=== PATIENT | male | born 1940 | race Caucasian/White ===

== ENCOUNTER → 2019-04-18 08:52 | Oncology outpatient (ONC) | payer MEDICARE, BC, SELFPAY ==
--- NOTE | 2019-04-03 13:38 | ONC.CONS ---
History of Present Illness - Data of Consult Patient: new to practice Consult date: 04/03/19 Requesting Physician: Shahriar Haro Primary Care Provider: FRANCA Gallagher - Consult Narrative Reason for consult: Elevated serum free light chain Narrative: Andrea Padilla is a 78 year old male who was referred by Ramiro Haro MD for elevated serum free light chain. 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 Recently, at Dr. Schaefer's office, the patient was found to have an elevated serum [place] free light chain of 7.98, Lambda free light chain of 3.4. 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 Patient reported better energy level recently. He denies any pain in the bones. He denies fever or chills, no nausea and no vomiting, no chest pain and no shortness of breath. His weight is stable. CC: Lara Bradford MD Home Medications and Allergies Home Medications Medication Instructions Recorded Confirmed Type Disabled Parking Permit ea #1 07/22/17 Rx aliskiren [Tekturna] 300 mg PO QDAY #90 tab 08/05/17 Rx simvastatin 20 mg PO HS #90 tab 08/05/17 Rx spironolacton-hydrochlorothiaz 0.5 tab PO SEE INSTRUCTIONS #45 tab 08/05/17 Rx terazosin 5 mg PO QDAY #90 cap 08/05/17 Rx warfarin [Jantoven] 1 tab PO SEE INSTRUCTIONS #90 tab 08/05/17 Rx Allergies Allergy/AdvReac Type Severity Reaction Status Date / Time ciprofloxacin [From CIPRO] Allergy Severe Unverified 03/09/18 12:39 benazepril [From LOTENSIN] Allergy Intermediate Unverified 03/09/18 12:39 cephalexin [From KEFLEX] Allergy Intermediate Unverified 03/09/18 12:39 beta blockers Allergy Unknown Uncoded 03/09/18 12:39 Medical History - Medical, Surgical, Family History Medical History: Medical History (Updated 04/03/19 @ 23:59 by Lara Bradford MD) CKD stage 3 due to type 2 diabetes mellitus Diabetes Hypertension Surgical History: Surgical History (Updated 04/03/19 @ 13:52 by Lara Bradford MD) History of knee replacement Family History: Family History (Updated 10/28/16 @ 00:00 by Conversion Provider) Father Stroke - Social History Smoking Status: Former smoker Quit Date: 03/05/19 Substance Use Type: does not use Alcohol Intake: current (wind with dinner, 4 night a week) Review of Systems All systems PM: reviewed and no additional remarkable complaints except as stated Exam Vital signs: Last Vital Signs Temp 98.5 F 04/03/19 13:43 Pulse 44 L 04/03/19 13:43 Resp 16 04/03/19 13:43 BP 165/62 H 04/03/19 13:43 Pulse Ox 97 04/03/19 13:43 ECOG 1 Narrative: Gen: WDWN, NAD, pleasant and cooperative Heent: EOMI, PERLLA, anicteric Nectk :supple, no palpable LDD, no palpable thyroid gland Resp: CTAB, no wheezes Abd: soft, nontender. No palpable organomegaly Ext: no pitting edema Neuro: AOx3, non-focal Results - Labs Pending. Assessment and Plan (1) Elevated serum immunoglobulin free light chain level 78 year old with multiple chronic comorbidities including HTN, DM, CKD. He was referred here for elevated serum free light chain [place]. I discussed with him that I will proceed with some initial tests and eventually, BMA/Bx may be indicated. Plan: 1. CBC, CMP, LDH, B2M, QIg, SPEP, IFX, SFLC 2. RTC in 1 week to review the result.
[2019-04-03 13:43] VITALS: BP 165/62; PULSE 44; RESP 16; TEMP 36.9; O2SAT 97
[2019-04-18 13:59] LABS: Add Manual Diff / Slide Review NO; Basophils Absolute Auto 100 /uL (0-100); Basophils Percent Auto 0.7 % (0-2); Eosinophils Absolute Auto 200 /uL (0-450); Hematocrit 44.3 % (41-53); Hemoglobin 14.8 g/dL (13.5-17.5); Lymphocytes Absolute Auto 1400 /uL (1100-4500); Lymphocytes Percent Auto 18.6 % (25-40); Mean Corpuscular HGB Conc 33.5 % (30-36); Mean Corpuscular Hemoglobin 30.2 PG (26-34); Mean Corpuscular Volume 90.1 fL (80-100); Monocytes Absolute Auto 1100 /uL (0-900); Monocytes Percent Auto 14.6 % (3-14); Neutrophils Absolute Auto 4800 /uL (1500-7000); Neutrophils Percent Auto 64.1 % (50-75); Platelet Count 164 X10^3/uL (150-400); Red Blood Cell Count 4.91 X10^6/uL (4.5-5.9); Red Cell Distribution Width 13.3 % (11.6-14.8); White Blood Cell Count 7.5 X10^3/uL (4.5-11.0)
[2019-04-18 14:27] LABS: Alanine Aminotransferase 17 IU/L (21-72); Albumin 3.9 g/dL (3.5-5.0); Albumin Globulin Ratio 1.3 (1.0-2.8); Alkaline Phosphatase 88 U/L (38-126); Aspartate Aminotransferase 21 IU/L (17-59); Bilirubin Total 0.7 mg/dL (0.2-1.3); Blood Urea Nitrogen 22 mg/dL (9-20); Calcium 9.6 mg/dL (8.4-10.2); Carbon Dioxide 32 mmol/L (22-32); Chloride 103 mmol/L (98-107); Estimated Glomerular Filt Rate > 60.0 mL/min (>60); Glucose 130 mg/dL (80-110); HEMOLYSIS < 15 (0-50); Potassium 4.8 mmol/L (3.4-5.1); Sodium 142 mmol/L (137-145); Total Protein 6.9 g/dL (6.3-8.2)
[2019-04-18 15:12] LABS: Lactate Dehydrogenase 457 U/L (313-618)
[2019-04-20 12:30] LABS: Beta-2-Microglobulin 3.44 mg/L (< 2.52)
[2019-04-20 14:34] LABS: Immunoglobulin A 438 mg/dL (81-463); Immunoglobulin G, Quantitative 1043 mg/dL (694-1618)
[2019-04-20 22:44] LABS: Albumin 3.6 g/dL (3.8-4.8); Alpha 1 Globulin 0.3 g/dL (0.2-0.3); Alpha 2 Globulin 0.6 g/dL (0.5-0.9); Beta 1 Globulin 0.5 g/dL (0.4-0.6); Gamma Globulin 1.1 g/dL (0.8-1.7); Protein, Total 6.6 g/dL (6.1-8.1)
[2019-04-21 14:35] LABS: Immunoglobulin M, Quantitative 130 mg/dL (48-271)
[2019-04-21 16:10] LABS: Free Kappa Light Chain 76.8 mg/L (3.3-19.4); Free Kappa/ Lambda Ratio 2.43 (0.26-1.65); Free Lambda 31.7 mg/L (5.7-26.3)
== END ==
PROVIDERS: PCP Nurse Practitioner Family; Visit Provider Internal Medicine Hematology & Oncology
DX: R79.89 Other specified abnormal findings of blood chemistry (principal); E11.22 Type 2 diabetes mellitus with diabetic chronic kidney disease; E11.21 Type 2 diabetes mellitus with diabetic nephropathy; I12.9 Hypertensive chronic kidney disease with stage 1 through stage 4 chronic kidney disease, or unspecified chronic kidney disease; N18.2 Chronic kidney disease, stage 2 (mild); Z79.01 Long term (current) use of anticoagulants
CPT/HCPCS: 36415; 80053; 82232; 82784; 83615; 83883; 84155; 84165; 85025; 86334; 99204; 99214

== ENCOUNTER 2019-06-13 09:15 | Day surgery (SDC) | payer MEDICARE, BC, SELFPAY ==
[2019-06-13] MEDS: PROPARACAINE 0.5% OPHTH SOL 2 DROPS EYE-OP (10:15)
[2019-06-13 10:20] VITALS: BP 120/60; PULSE 47; RESP 20; TEMP 36.5; O2SAT 93; BMI 26.8
[2019-06-13] MEDS: CATARACT EYE COMPOUND (10 DROPS/SYRINGE) 3 DROPS EYE-OP (10:20)
--- NOTE | 2019-06-13 11:35 | PM.PREOP ---
Pre-operative Note Interval Note History & Physical reviewed/Exam performed by Physician: No Changes to H&P: No
--- NOTE | 2019-06-13 11:35 | PM.OP.1 ---
Operative Date/Time/Diagnoses Pre-op diagnosis: Nuclear Cataract Left eye Post-op diagnosis: same Procedure & Clinicians Surgeon: Michelet Calvo Anesthesia Type: MAC +/- and Sedation Operative Notes Procedure in detail: Patient brought to the operating suite. Tetracaine drops placed in the left eye. Marking instrument was used to julio the vertical and horizontal meridians. Patient was prepped and draped in sterile manner. Wire lid speculum was placed in the eye. Marking instrument was used to julio the 130 degree meridian. Betadine drops were placed on the eye. This was irrigated. Lidocaine jelly was placed on the eye. A paracentesis port was created with a side-port blade. 0.1 mL 1% preservative free lidocaine was injected into the anterior chamber. The anterior chamber was deepened with viscoelastic. 2.6 mm keratome was used to create a temporal clear corneal incision. Cystotome and Utrata forceps were used to create continuous tear capsulorrhexis. Balanced salt solution was used to hydro dissect the nucleus. The phacoemulsification handpiece was inserted and the nucleus was removed using the stop and chop technique. The irrigation aspiration handpiece was inserted and the remaining cortex was removed. Anterior chamber was deepened with viscoelastic. An Croft [id number] intraocular lens with a power of 21.0 was injected into the capsular bag. Irrigation aspiration handpiece was inserted and the remaining viscoelastic was removed. The lens was rotated to the 130 degree meridian. Incision was hydrated with balanced salt solution and found to be leak free with pressure with Weck-Josefina sponges. 0.1 mL Vigamox injected anterior chamber. 0.3 mL Kenalog 10 mg was injected subconjunctivally. Lid speculum was removed. The patient left the operating room in excellent condition. Complications: none Condition: stable Disposition: same day surgery
[2019-06-13] MEDS: PHENYLEPHRINE/LIDOCAINE VIAL (OR) 0.2 ML EYE-OP (11:56)
[2019-06-13] MEDS: MOXIFLOXACIN OPHTH DROPS 3 ML BOTTLE 2 DROPS INJ (11:58)
[2019-06-13] MEDS: CHONDROIDTIN/SOD HYALURONATE 1.05 ML SYRINGE INTRAOCULA (12:00)
[2019-06-13] MEDS: LIDOCAINE JELLY 2% 5 ML 1 APPLIC TOP (12:00)
[2019-06-13] MEDS: TRIAMCINOLONE 50 MG/5 ML VIAL INJ (12:00)
[2019-06-13] MEDS: BALANCED SALT IRRIG SOLN NO.2 500 ML, EPINEPHrine 1 MG IRR (12:01)
[2019-06-13] MEDS: TETRACAINE 0.5% OPHTH DROPS 4 ML 2 DROPS EYE-OP (12:01)
[2019-06-13 12:27] VITALS: BP 131/66; PULSE 46; RESP 15; TEMP 36.3; O2SAT 96
== END 2019-06-13 12:35 | disposition admitted as inpatient to this hospital (09) ==
PROVIDERS: PCP Nurse Practitioner Family; Visit Provider Ophthalmology
PROC: (CPT 66984; principal; 2019-06-13 11:15)
DX: H25.12 Age-related nuclear cataract, left eye (principal); I10 Essential (primary) hypertension; Z79.84 Long term (current) use of oral hypoglycemic drugs
CPT/HCPCS: 66984; J0171; J2250; J3010; J3301; V2787

== ENCOUNTER 2019-06-27 11:28 | Day surgery (SDC) | payer MEDICARE, BC, SELFPAY ==
[2019-06-27 12:51] VITALS: BMI 26.0
[2019-06-27 12:57] VITALS: BP 142/60; PULSE 44; RESP 151; TEMP 36.1; O2SAT 97
[2019-06-27] MEDS: PROPARACAINE 0.5% OPHTH SOL 2 DROPS EYE-OP (13:18)
[2019-06-27] MEDS: CATARACT EYE COMPOUND (10 DROPS/SYRINGE) 3 DROPS EYE-OP (13:18)
--- NOTE | 2019-06-27 13:38 | PM.PREOP ---
Pre-operative Note Interval Note History & Physical reviewed/Exam performed by Physician: No Changes to H&P: No
--- NOTE | 2019-06-27 13:38 | PM.OP.1 ---
Operative Date/Time/Diagnoses Pre-op diagnosis: Nuclear cataract right eye Procedure & Clinicians Procedure: Cataract Surgery Same procedure as scheduled: Yes Surgeon: Michelet Calvo Anesthesia Type: MAC +/- and Sedation Operative Notes Procedure in detail: Patient brought to the operating suite. Tetracaine drops placed in the right eye. Patient was prepped and draped in sterile manner. Wire lid speculum was placed in the eye. Betadine drops were placed on the eye. This was irrigated. Lidocaine jelly was placed on the eye. A paracentesis port was created with a side-port blade. 0.1 mL 1% preservative free lidocaine was injected into the anterior chamber. The anterior chamber was deepened with viscoelastic. 2.6 mm keratome was used to create a temporal clear corneal incision. Cystotome and Utrata forceps were used to create continuous tear capsulorrhexis. Balanced salt solution was used to hydro dissect the nucleus. The phacoemulsification handpiece was inserted and the nucleus was removed using the stop and chop technique. The irrigation aspiration handpiece was inserted and the remaining cortex was removed. Anterior chamber was deepened with viscoelastic. An Croft ZCB00 intraocular lens with a power of 21.5 was injected into the capsular bag. Irrigation aspiration handpiece was inserted and the remaining viscoelastic was removed. Incision was hydrated with balanced salt solution and found to be leak free with pressure with Weck-Josefina sponges. 0.1 mL Vigamox injected anterior chamber. 0.3 mL Kenalog 10 mg was injected subconjunctivally. Lid speculum was removed. The patient left the operating room in excellent condition. Complications: none Condition: stable Disposition: same day surgery
[2019-06-27] MEDS: CHONDROIDTIN/SOD HYALURONATE 1.05 ML SYRINGE INTRAOCULA (14:02)
[2019-06-27] MEDS: MOXIFLOXACIN OPHTH DROPS 3 ML BOTTLE 2 DROPS INJ (14:02)
[2019-06-27] MEDS: TRIAMCINOLONE 50 MG/5 ML VIAL INJ (14:02)
[2019-06-27] MEDS: PHENYLEPHRINE/LIDOCAINE VIAL (OR) 0.2 ML EYE-OP (14:02)
[2019-06-27] MEDS: TETRACAINE 0.5% OPHTH DROPS 4 ML 2 DROPS EYE-OP (14:03)
[2019-06-27] MEDS: LIDOCAINE JELLY 2% 5 ML 1 APPLIC TOP (14:03)
[2019-06-27] MEDS: BALANCED SALT IRRIG SOLN NO.2 500 ML, EPINEPHrine 1 MG IRR (14:03)
[2019-06-27 14:10] VITALS: BP 112/61; PULSE 59; RESP 14; TEMP 36.6; O2SAT 94
== END 2019-06-27 14:30 | disposition home or self-care (01) ==
PROVIDERS: PCP Nurse Practitioner Family; Visit Provider Ophthalmology
PROC: (CPT 66984; principal; 2019-06-27 13:45)
DX: H25.11 Age-related nuclear cataract, right eye (principal); I10 Essential (primary) hypertension; E11.9 Type 2 diabetes mellitus without complications; Z79.84 Long term (current) use of oral hypoglycemic drugs
CPT/HCPCS: 66984; J0171; J2250; J3010; J3301

== ENCOUNTER 2020-07-15 03:57 | Emergency (ER) | payer MEDICARE, BC, SELFPAY ==
[2020-07-15] VITALS (14 sets, daily range): BP systolic 102–172; BP diastolic 56–77; PULSE 79–91; RESP 13–23; TEMP 36.8; O2SAT 93–98; BMI 26.0
--- NOTE | 2020-07-15 04:00 | DI.RAD.S_ITS ---
PROCEDURE: XR CHEST 1V INDICATIONS: chest pain TECHNIQUE: One view of the chest was acquired. COMPARISON: None. FINDINGS: Surgical changes and devices: None. Lungs and pleura: Mild increased vascularity is present. There is blunting of the costophrenic angles bilaterally. Mediastinum: Mediastinal contours appear normal. Heart size is normal. Bones and chest wall: No suspicious bony lesions. Overlying soft tissues appear unremarkable. IMPRESSION: Increased vascularity consistent with edema. Trace effusions are noted. Dictated by: Edelmira Lopez M.D. on 07/15/2020 at 8:55 Approved by: Edelmira Lopez M.D. on 07/15/2020 at 8:56
[2020-07-15 04:12] LABS: Add Manual Diff / Slide Review NO; Basophils Absolute Auto 200 /uL (0-100); Basophils Percent Auto 1.1 % (0-2); Eosinophils Absolute Auto 200 /uL (0-450); Eosinophils Percent Auto 1.7 % (2-4); Hematocrit 31.9 % (41-53); Hemoglobin 10.5 g/dL (13.5-17.5); Lymphocytes Absolute Auto 1300 /uL (1100-4500); Lymphocytes Percent Auto 9.3 % (25-40); Mean Corpuscular Volume 94.1 fL (80-100); Monocytes Absolute Auto 1600 /uL (0-900); Monocytes Percent Auto 11.5 % (3-14); Neutrophils Absolute Auto 10600 /uL (1500-7000); Neutrophils Percent Auto 76.4 % (50-75); Platelet Count 448 X10^3/uL (150-400); Red Blood Cell Count 3.39 X10^6/uL (4.5-5.9); Red Cell Distribution Width 14.6 % (11.6-14.8); White Blood Cell Count 13.8 X10^3/uL (4.5-11.0)
[2020-07-15 04:15] LABS: INR 1.5 (0.9-1.3)
[2020-07-15 04:18] LABS: PTT Partial Thromboplastin Tim 29 SECONDS (26.4-36.2)
[2020-07-15 04:20] LABS: Alanine Aminotransferase 27 IU/L (<50); Albumin 3.1 g/dL (3.5-5.0); Albumin Globulin Ratio 0.8 (1.0-2.8); Alkaline Phosphatase 206 U/L (38-126); Aspartate Aminotransferase 36 IU/L (17-59); BUN Creatinine Ratio 40.2 (6-22); Bilirubin Total 1.6 mg/dL (0.2-1.3); Blood Urea Nitrogen 33 mg/dL (9-20); Calcium 9.1 mg/dL (8.4-10.2); Carbon Dioxide 30 mmol/L (22-32); Chloride 108 mmol/L (98-107); Creatine Kinase 44 U/L (55-170); Estimated Glomerular Filt Rate > 60.0 mL/min (>60); Globulin 3.8 g/dL (1.7-4.1); Glucose 201 mg/dL (80-110); HEMOLYSIS 27 (0-50); Lipase 400 U/L (23-300); Potassium 4.1 mmol/L (3.4-5.1); Sodium 140 mmol/L (137-145); Total Protein 6.9 g/dL (6.3-8.2)
--- NOTE | 2020-07-15 04:21 | ED.CHESTPAIN ---
HPI - Chest Pain <Joss Camacho, DO - Last Filed: 07/15/20 19:00> General Chief Complaint: Chest Pain Stated Complaint: chest pain Time Seen by Provider: 07/15/20 03:59 Source: patient and EMS Mode of arrival: EMS Limitations: no limitations History of Present Illness HPI narrative: 80-year-old male brought in by EMS for evaluation of left-sided chest discomfort. Also complaining sweating and tingling down half of his left arm. Patient states that the symptoms occurred approximately 0200 hours in the morning. He states that it woke him from his sleep. EMS was called by the rehab facility staff. He is at the rehab facility secondary to pelvic fractures. He has been there for 2 weeks. It was reported from the patient in EMS that he was complaining of the same pain that brought him in this evening for the past 2 nights with tonaudrey's episode being the 3rd night that this has happened. It seems to be associated shortly after receiving tramadol. Patient received aspirin and nitro by EMS prior to arrival without any change in his discomfort. Upon my evaluation patient states that his symptoms are somewhat better compared earlier in the evening. He states that the pain can be reproduced with touching and moving his left arm and also taking a deep breath. Related Data Home Medications Medication Instructions Recorded Confirmed carvedilol 12.5 mg PO BID 06/13/19 06/27/19 glipizide 15 mg PO DAILY 06/13/19 06/27/19 Previous Rx's Medication Instructions Recorded Disabled Parking Permit ea #1 07/22/17 aliskiren [Tekturna] 300 mg PO QDAY #90 tab 08/05/17 simvastatin 20 mg PO HS #90 tab 08/05/17 spironolacton-hydrochlorothiaz 0.5 tab PO SEE INSTRUCTIONS #45 tab 08/05/17 terazosin 5 mg PO QDAY #90 cap 08/05/17 warfarin [Jantoven] 1 tab PO SEE INSTRUCTIONS #90 tab 08/05/17 Allergies Allergy/AdvReac Type Severity Reaction Status Date / Time ciprofloxacin [From CIPRO] Allergy Severe Anaphylaxis Verified 06/27/19 12:45 benazepril [From LOTENSIN] Allergy Intermediate Anaphylaxis Verified 06/27/19 12:45 cephalexin [From KEFLEX] Allergy Intermediate Anaphylaxis Verified 06/27/19 12:45 Calcium Channel Blocking AdvReac Severe Anaphylaxis Verified 06/27/19 12:45 Agent Dilt Opioids - Morphine Analogues AdvReac Severe Hallucinati Verified 07/15/20 05:04 ng ALCIDES Inhibitors AdvReac Anaphylaxis Verified 06/27/19 12:45 atenolol AdvReac Anaphylaxis Verified 06/27/19 12:45 Review of Systems <Joss Camacho DO - Last Filed: 07/15/20 19:00> Constitutional Constitutional: Denies chills and Denies fever(s) Comments: Sweating Cardiovascular Cardiovascular: Reports chest pain, Denies syncope, Denies rapid heart rate, Denies irregular heart rhythm, Reports radiating jaw, neck or arm pain and Denies dyspnea Respiratory Respiratory: Denies cough, Reports pain on inspiration and Denies dyspnea Gastrointestinal Gastrointestinal: Denies abdominal pain, Denies nausea and Denies vomiting Genitourinary Genitourinary: Denies dysuria Genitourinary: Denies dysuria Integumentary/Breasts Skin/Breast: Denies rash Neurologic Neurologic: Denies behavioral changes and Denies syncope Psychiatric Psychiatric: Denies behavioral changes Hematologic/Lymphatic Comments: On Coumadin per his medicine list Allergic/Immunologic Allergic/Immunologic: Denies urticaria Patient History <Joss Camacho DO - Last Filed: 07/15/20 19:00> Medical History CKD stage 3 due to type 2 diabetes mellitus (Acute) Diabetes (Acute) Hypertension (Acute) Surgical History (Updated 04/04/19 @ 00:08 by Lara Bradford MD) History of knee replacement Family History (Updated 10/28/16 @ 00:00 by Conversion Provider) Father Stroke Social History household members: spouse Smoking Status: Former smoker alcohol intake: current (wind with dinner, 4 night a week) substance use type: does not use Smoking Status: Former smoker alcohol intake frequency: 0-2 drinks per day Substance Use Type: does not use Exam <Joss Camacho DO - Last Filed: 07/15/20 19:00> Initial Vital Signs Initial Vital Signs: Vital Signs Temperature 98.3 F 07/15/20 04:00 Pulse Rate 86 07/15/20 04:00 Respiratory Rate 20 07/15/20 04:00 Blood Pressure 105/56 L 07/15/20 04:00 Pulse Oximetry 98 07/15/20 04:00 Const General: cooperative and comfortable Limitations: mental status not altered HENMT Head: normal to inspection and normocephalic Chest Chest: tenderness (Left-sided) and No rash Resp Effort & Inspection: normal respiratory effort Auscultation: clear to auscultation bilaterally Cardio Rate: regular rate Rhythm: regular rhythm GI Inspection: non-distended Palpation: soft Skin Lesions: no lesions Rashes: no rashes Neuro General: patient alert and patient awake Cognition: normal cognition Speech: speech normal Extrem General: normal to inspection and capillary refill normal Psych Appearance: grossly normal and well kempt <Halima Grant DO - Last Filed: 07/15/20 11:20> Initial Vital Signs Initial Vital Signs: Vital Signs Temperature 98.3 F 07/15/20 04:00 Pulse Rate 86 07/15/20 04:00 Respiratory Rate 20 07/15/20 04:00 Blood Pressure 105/56 L 07/15/20 04:00 Pulse Oximetry 98 07/15/20 04:00 Scores <Joss Camacho DO - Last Filed: 07/15/20 19:00> GCS Muriel coma scale eye opening: Spontaneous Muriel coma scale verbal response: Confused [place] coma scale motor response: Obey commands [place] coma scale total score: 14 Course <Joss Camacho DO - Last Filed: 07/15/20 19:00> Orders Ordered: Discontinued Medications Ketorolac Tromethamine (Toradol) 30 mg IV NOW ONE Stop: 07/15/20 06:00 Last Admin: 07/15/20 06:04 Dose: 30 mg Documented by: FREDY Vital Signs Vital signs: Vital Signs - 8 hr 07/15/20 04:00 07/15/20 04:01 07/15/20 04:02 Temperature 98.3 F Pulse Rate 86 87 Respiratory Rate 20 Blood Pressure 105/56 L 105/56 L Pulse Oximetry 98 93 07/15/20 04:30 07/15/20 05:00 07/15/20 05:30 Temperature Pulse Rate 80 79 80 Respiratory Rate 13 17 17 Blood Pressure 102/57 L 142/65 H 146/66 H Pulse Oximetry 94 96 95 07/15/20 06:00 07/15/20 06:30 07/15/20 07:00 Temperature Pulse Rate 87 83 85 Respiratory Rate 23 19 18 Blood Pressure 165/75 H 151/71 H 143/67 H Pulse Oximetry 96 95 96 07/15/20 07:30 07/15/20 08:00 07/15/20 08:30 Temperature Pulse Rate 91 H 91 H 83 Respiratory Rate 21 23 Blood Pressure 158/77 H 148/73 H 172/74 H Pulse Oximetry 95 95 95 07/15/20 09:00 07/15/20 09:01 Temperature Pulse Rate 85 87 Respiratory Rate Blood Pressure 163/68 H Pulse Oximetry <Halima Grant DO - Last Filed: 07/15/20 11:20> Orders Ordered: Discontinued Medications Ketorolac Tromethamine (Toradol) 30 mg IV NOW ONE Stop: 07/15/20 06:00 Last Admin: 07/15/20 06:04 Dose: 30 mg Documented by: FREDY Vital Signs Vital signs: Vital Signs - 8 hr 07/15/20 04:00 07/15/20 04:01 07/15/20 04:02 Temperature 98.3 F Pulse Rate 86 87 Respiratory Rate 20 Blood Pressure 105/56 L 105/56 L Pulse Oximetry 98 93 07/15/20 04:30 07/15/20 05:00 07/15/20 05:30 Temperature Pulse Rate 80 79 80 Respiratory Rate 13 17 17 Blood Pressure 102/57 L 142/65 H 146/66 H Pulse Oximetry 94 96 95 07/15/20 06:00 07/15/20 06:30 07/15/20 07:00 Temperature Pulse Rate 87 83 85 Respiratory Rate 23 19 18 Blood Pressure 165/75 H 151/71 H 143/67 H Pulse Oximetry 96 95 96 07/15/20 07:30 07/15/20 08:00 07/15/20 08:30 Temperature Pulse Rate 91 H 91 H 83 Respiratory Rate 21 23 Blood Pressure 158/77 H 148/73 H 172/74 H Pulse Oximetry 95 95 95 07/15/20 09:00 07/15/20 09:01 Temperature Pulse Rate 85 87 Respiratory Rate Blood Pressure 163/68 H Pulse Oximetry MDM - Chest Pain <Joss Camacho DO - Last Filed: 07/15/20 19:00> Lab Data Attestation: I reviewed the patient's lab results. Result diagrams: 07/15/20 04:00 07/15/20 04:00 Labs: Lab Results 07/15/20 07/15/20 07/15/20 Range/Units 04:00 04:00 04:00 WBC 13.8 H (4.5-11.0) X10^3/uL RBC 3.39 L (4.5-5.9) X10^6/uL Hgb 10.5 L (13.5-17.5) g/dL Hct 31.9 L (41-53) % MCV 94.1 (80-100) fL MCH 31.0 (26-34) PG MCHC 33.0 (30-36) % RDW 14.6 (11.6-14.8) % Plt Count 448 H (150-400) X10^3/uL Neut % (Auto) 76.4 H (50-75) % Lymph % (Auto) 9.3 L (25-40) % [place] % (Auto) 11.5 (3-14) % Eos % (Auto) 1.7 L (2-4) % Baso % (Auto) 1.1 (0-2) % Neut # (Auto) 30222 H (2531-8629) /uL Lymph # (Auto) 1300 (0325-9937) /uL [place] # (Auto) 1600 H (0-900) /uL Eos # (Auto) 200 (0-450) /uL Baso # (Auto) 200 H (0-100) /uL PT 17.0 H (10.1-12.7) SECONDS INR 1.5 H (0.9-1.3) APTT 29 (26.4-36.2) SECONDS Sodium 140 (137-145) mmol/L Potassium 4.1 (3.4-5.1) mmol/L Chloride 108 H (98-107) mmol/L Carbon Dioxide 30 (22-32) mmol/L BUN 33 H (9-20) mg/dL Creatinine 0.82 (0.66-1.25) mg/dL Estimated GFR > 60.0 (>60) mL/min BUN/Creatinine Ratio 40.2 H (6-22) Glucose 201 H (80-110) mg/dL Calcium 9.1 (8.4-10.2) mg/dL Total Bilirubin 1.6 H (0.2-1.3) mg/dL AST 36 (17-59) IU/L ALT 27 (<50) IU/L Alkaline Phosphatase 206 H (38-126) U/L Total Creatine Kinase 44 L (55-170) U/L CK-MB (CK-2) TNP CK-MB (CK-2) Rel Index TNP Troponin I 0.013 (0.01-0.034) ng/mL Total Protein 6.9 (6.3-8.2) g/dL Albumin 3.1 L (3.5-5.0) g/dL Globulin 3.8 (1.7-4.1) g/dL Albumin/Globulin Ratio 0.8 L (1.0-2.8) Lipase 400 H (23-300) U/L 07/15/20 Range/Units 06:55 WBC (4.5-11.0) X10^3/uL RBC (4.5-5.9) X10^6/uL Hgb (13.5-17.5) g/dL Hct (41-53) % MCV (80-100) fL MCH (26-34) PG MCHC (30-36) % RDW (11.6-14.8) % Plt Count (150-400) X10^3/uL Neut % (Auto) (50-75) % Lymph % (Auto) (25-40) % [place] % (Auto) (3-14) % Eos % (Auto) (2-4) % Baso % (Auto) (0-2) % Neut # (Auto) (6665-8085) /uL Lymph # (Auto) (5362-5611) /uL [place] # (Auto) (0-900) /uL Eos # (Auto) (0-450) /uL Baso # (Auto) (0-100) /uL PT (10.1-12.7) SECONDS INR (0.9-1.3) APTT (26.4-36.2) SECONDS Sodium (137-145) mmol/L Potassium (3.4-5.1) mmol/L Chloride (98-107) mmol/L Carbon Dioxide (22-32) mmol/L BUN (9-20) mg/dL Creatinine (0.66-1.25) mg/dL Estimated GFR (>60) mL/min BUN/Creatinine Ratio (6-22) Glucose (80-110) mg/dL Calcium (8.4-10.2) mg/dL Total Bilirubin (0.2-1.3) mg/dL AST (17-59) IU/L ALT (<50) IU/L Alkaline Phosphatase (38-126) U/L Total Creatine Kinase (55-170) U/L CK-MB (CK-2) CK-MB (CK-2) Rel Index Troponin I < 0.012 (0.01-0.034) ng/mL Total Protein (6.3-8.2) g/dL Albumin (3.5-5.0) g/dL Globulin (1.7-4.1) g/dL Albumin/Globulin Ratio (1.0-2.8) Lipase (23-300) U/L Imaging Data Chest x-ray: Attestation: I personally reviewed and interpreted this imaging study as follows: My Impression: Poor inspiratory volumes, bilateral patchy infiltrates, no pneumonia ECG Data Attestation: I personally reviewed and interpreted this ECG as follows: Prior ECG tracings: not available for review Interpretation: Sinus rhythm Ventricular rate 88 Normal axis Normal QRS Normal QTC No ST T wave changes MDM Narrative Medical decision making narrative: Patient does have left-sided reproducible chest pain. He states that this was the pain that brought him into the ER. He was given aspirin and nitro. Unremarkable EKG. First troponin negative. Given the fact that he did have pain down his left arm that he is a diabetic will keep the patient for repeat troponin. Care turned over to Dr. Grant at change of shift to follow up and disposition. <Halima Grant, DO - Last Filed: 07/15/20 11:20> Lab Data Attestation: I reviewed the patient's lab results. Labs: Lab Results 07/15/20 07/15/20 07/15/20 Range/Units 04:00 04:00 04:00 WBC 13.8 H (4.5-11.0) X10^3/uL RBC 3.39 L (4.5-5.9) X10^6/uL Hgb 10.5 L (13.5-17.5) g/dL Hct 31.9 L (41-53) % MCV 94.1 (80-100) fL MCH 31.0 (26-34) PG MCHC 33.0 (30-36) % RDW 14.6 (11.6-14.8) % Plt Count 448 H (150-400) X10^3/uL Neut % (Auto) 76.4 H (50-75) % Lymph % (Auto) 9.3 L (25-40) % [place] % (Auto) 11.5 (3-14) % Eos % (Auto) 1.7 L (2-4) % Baso % (Auto) 1.1 (0-2) % Neut # (Auto) 08445 H (6932-9961) /uL Lymph # (Auto) 1300 (3834-9889) /uL [place] # (Auto) 1600 H (0-900) /uL Eos # (Auto) 200 (0-450) /uL Baso # (Auto) 200 H (0-100) /uL PT 17.0 H (10.1-12.7) SECONDS INR 1.5 H (0.9-1.3) APTT 29 (26.4-36.2) SECONDS Sodium 140 (137-145) mmol/L Potassium 4.1 (3.4-5.1) mmol/L Chloride 108 H (98-107) mmol/L Carbon Dioxide 30 (22-32) mmol/L BUN 33 H (9-20) mg/dL Creatinine 0.82 (0.66-1.25) mg/dL Estimated GFR > 60.0 (>60) mL/min BUN/Creatinine Ratio 40.2 H (6-22) Glucose 201 H (80-110) mg/dL Calcium 9.1 (8.4-10.2) mg/dL Total Bilirubin 1.6 H (0.2-1.3) mg/dL AST 36 (17-59) IU/L ALT 27 (<50) IU/L Alkaline Phosphatase 206 H (38-126) U/L Total Creatine Kinase 44 L (55-170) U/L CK-MB (CK-2) TNP CK-MB (CK-2) Rel Index TNP Troponin I 0.013 (0.01-0.034) ng/mL Total Protein 6.9 (6.3-8.2) g/dL Albumin 3.1 L (3.5-5.0) g/dL Globulin 3.8 (1.7-4.1) g/dL Albumin/Globulin Ratio 0.8 L (1.0-2.8) Lipase 400 H (23-300) U/L 07/15/20 Range/Units 06:55 WBC (4.5-11.0) X10^3/uL RBC (4.5-5.9) X10^6/uL Hgb (13.5-17.5) g/dL Hct (41-53) % MCV (80-100) fL MCH (26-34) PG MCHC (30-36) % RDW (11.6-14.8) % Plt Count (150-400) X10^3/uL Neut % (Auto) (50-75) % Lymph % (Auto) (25-40) % [place] % (Auto) (3-14) % Eos % (Auto) (2-4) % Baso % (Auto) (0-2) % Neut # (Auto) (4769-5385) /uL Lymph # (Auto) (1935-1295) /uL [place] # (Auto) (0-900) /uL Eos # (Auto) (0-450) /uL Baso # (Auto) (0-100) /uL PT (10.1-12.7) SECONDS INR (0.9-1.3) APTT (26.4-36.2) SECONDS Sodium (137-145) mmol/L Potassium (3.4-5.1) mmol/L Chloride (98-107) mmol/L Carbon Dioxide (22-32) mmol/L BUN (9-20) mg/dL Creatinine (0.66-1.25) mg/dL Estimated GFR (>60) mL/min BUN/Creatinine Ratio (6-22) Glucose (80-110) mg/dL Calcium (8.4-10.2) mg/dL Total Bilirubin (0.2-1.3) mg/dL AST (17-59) IU/L ALT (<50) IU/L Alkaline Phosphatase (38-126) U/L Total Creatine Kinase (55-170) U/L CK-MB (CK-2) CK-MB (CK-2) Rel Index Troponin I < 0.012 (0.01-0.034) ng/mL Total Protein (6.3-8.2) g/dL Albumin (3.5-5.0) g/dL Globulin (1.7-4.1) g/dL Albumin/Globulin Ratio (1.0-2.8) Lipase (23-300) U/L MDM Narrative Medical decision making narrative: Patient signed out to me by Dr. Camacho. I have seen evaluated patient myself he is currently on the phone with his . His pain is reproducible when I palpate on his chest he overall is feeling better. At times he has had quite the story after a fall. He is noted to have contusion all along the right side of his torso as well. The pain seems to be musculoskeletal related rather than cardiac related his repeat troponin is negative. At this time I feel it is okay for him to go home, however did caution him to return to the ED if his chest pain worsens or changes in nature. Discharge Plan Departure Patient Disposition: Home Clinical Impression: Atypical chest pain Discharge Date/Time: 07/15/20 10:06 Instructions: DI for Atypical Chest Pain Activity Restrictions/Additional Instructions: *You have been diagnosed with atypical chest pain *What to do: Rib pain at this time seems to be musculoskeletal related. However he still may require further cardiac testing with her primary care provider *Continue to take medications as directed *Follow up with your primary care provider in 2-3 days *Return to ER if you should have changing chest pain, new or worsening chest pain, shortness of breath, nausea or vomiting or any new, worsening or concerning symptoms Prescriptions: No Action Disabled Parking Permit Qty: 1 RF: 0 terazosin 5 MG capsule 5 mg PO QDAY Qty: 90 RF: 3 spironolacton-hydrochlorothiaz 25 MG/25 MG tablet 0.5 tab PO SEE INSTRUCTIONS Qty: 45 RF: 3 simvastatin 20 MG tablet 20 mg PO HS Qty: 90 RF: 3 warfarin [Jantoven] 5 MG tablet 1 tab PO SEE INSTRUCTIONS Qty: 90 RF: 3 aliskiren [Tekturna] 300 MG tablet 300 mg PO QDAY Qty: 90 RF: 3 carvedilol 12.5 mg Tablet 12.5 mg PO BID RF: 0 glipizide 5 mg Tablet 15 mg PO DAILY RF: 0
[2020-07-15 04:32] LABS: Troponin I 0.013 ng/mL (0.01-0.034)
[2020-07-15] MEDS: KETOROLAC 60 MG/2 ML VIAL 30 MG IV (06:04)
[2020-07-15 07:36] LABS: Troponin I < 0.012 ng/mL (0.01-0.034)
== END 2020-07-15 10:06 | disposition home or self-care (01) ==
PROVIDERS: Emergency Medicine; Emergency Provider Emergency Medicine
DX: R07.89 Other chest pain (principal); R20.2 Paresthesia of skin; I10 Essential (primary) hypertension; E11.9 Type 2 diabetes mellitus without complications; I48.91 Unspecified atrial fibrillation
CPT/HCPCS: 36415; 71045; 80053; 82550; 83690; 84484; 85025; 85610; 85730; 93005; 93010; 96374; 99284; J1885

== ENCOUNTER → 2020-07-15 12:23 | Outpatient (ROUT) | payer MEDICARE, BC, SELFPAY ==
[2020-07-15 13:22] LABS: INR 1.6 (0.9-1.3); Prothrombin Time 18.5 SECONDS (10.1-12.7)
== END ==
PROVIDERS: Visit Provider Internal Medicine
DX: I48.91 Unspecified atrial fibrillation (principal)
CPT/HCPCS: 85610

== ENCOUNTER → 2020-07-17 08:42 | Outpatient (ROUT) | payer MEDICARE, BC, SELFPAY ==
[2020-07-17 08:51] LABS: INR 1.9 (0.9-1.3); Prothrombin Time 21.1 SECONDS (10.1-12.7)
[2020-07-17 16:22] LABS: Bacteria Urine None Seen; RBC Urine None Seen (0-5/HPF); WBC Urine None Seen (0-5/HPF)
[2020-07-17 16:37] LABS: Appearance Urine UA CLEAR; Bilirubin Urine UA NEGATIVE (NEGATIVE); Color Urine UA YELLOW; Glucose Urine UA TRACE g/dL (Negative); Ketones Urine UA NEGATIVE (NEGATIVE); Leukocyte Esterase Urine UA NEGATIVE (NEGATIVE); Nitrite Urine UA NEGATIVE (Negative); Occult Blood Urine UA NEGATIVE (Negative); Protein Urine UA TRACE (Negative); Specific Gravity Urine UA 1.015 (1.000-1.035)
[2020-07-17 17:09] LABS: Culture Indicated Urine Cult Not Indicated
[2020-07-17 19:58] LABS: Urine Comments Microscopic Normal
== END ==
PROVIDERS: Visit Provider Internal Medicine
DX: I48.0 Paroxysmal atrial fibrillation (principal)
CPT/HCPCS: 81001; 85610

== ENCOUNTER → 2020-07-23 13:17 | Outpatient (CLI) | payer MEDICARE, BC, SELFPAY ==
--- NOTE | 2020-07-23 | DI.RAD.S_ITS ---
PROCEDURE: XR HIP W PEL IF DONE LT MIN 4V INDICATIONS: PELVIS/BILAT HIP MULTIPLE FRACTURES W/ STABLE DISTRUCTION TECHNIQUE: AP pelvis with lateral view(s) of the bilateral hip(s). COMPARISON: None. FINDINGS: Bones: No fractures or dislocations. Pelvic ring appears intact. No suspicious bony lesions. Moderate bilateral degenerative changes within the hip. Soft tissues: The visualized bowel gas pattern is normal. No suspicious soft tissue calcifications. IMPRESSION: Moderate bilateral hip osteoarthritis. Dictated by: Edelmira Lopez M.D. on 07/23/2020 at 17:13 Approved by: Edelmira Lopez M.D. on 07/23/2020 at 17:13
== END ==
PROVIDERS: Referring Provider Nurse Practitioner; Visit Provider Nurse Practitioner
DX: S32.810D Multiple fractures of pelvis with stable disruption of pelvic ring, subsequent encounter for fracture with routine healing (principal); M16.0 Bilateral primary osteoarthritis of hip
CPT/HCPCS: 73521

== ENCOUNTER → 2020-07-24 12:12 | Outpatient (ROUT) | payer MEDICARE, BC, SELFPAY ==
[2020-07-24 12:35] LABS: INR 3.2 (0.9-1.3); Prothrombin Time 36.8 SECONDS (10.1-12.7)
[2020-07-25 11:36] LABS: COVID19 Sendout Not Detected (Not Detected)
== END ==
PROVIDERS: Visit Provider Internal Medicine
DX: I48.91 Unspecified atrial fibrillation (principal)
CPT/HCPCS: 85610; 87635

== ENCOUNTER → 2020-07-31 11:10 | Outpatient (ROUT) | payer MEDICARE, BC, SELFPAY ==
[2020-07-31 11:34] LABS: Add Manual Diff / Slide Review NO; Basophils Absolute Auto 0 /uL (0-100); Basophils Percent Auto 0.3 % (0-2); Eosinophils Absolute Auto 200 /uL (0-450); Eosinophils Percent Auto 2.7 % (2-4); Hematocrit 29.7 % (41-53); Lymphocytes Absolute Auto 1000 /uL (1100-4500); Lymphocytes Percent Auto 13.3 % (25-40); Mean Corpuscular HGB Conc 33.6 % (30-36); Mean Corpuscular Hemoglobin 31.3 PG (26-34); Monocytes Absolute Auto 900 /uL (0-900); Monocytes Percent Auto 12.3 % (3-14); Neutrophils Absolute Auto 5400 /uL (1500-7000); Neutrophils Percent Auto 71.4 % (50-75); Platelet Count 252 X10^3/uL (150-400); Red Cell Distribution Width 14.6 % (11.6-14.8); White Blood Cell Count 7.6 X10^3/uL (4.5-11.0)
[2020-07-31 11:36] LABS: Appearance Urine UA CLEAR; Bilirubin Urine UA NEGATIVE (NEGATIVE); Color Urine UA YELLOW; Glucose Urine UA NEGATIVE (Negative); Ketones Urine UA NEGATIVE (NEGATIVE); Leukocyte Esterase Urine UA NEGATIVE (NEGATIVE); Nitrite Urine UA NEGATIVE (Negative); Occult Blood Urine UA NEGATIVE (Negative); Protein Urine UA TRACE (Negative); Specific Gravity Urine UA >=1.030 (1.000-1.035); Urobilinogen Urine UA 0.2 E.U./dL (0.2)
[2020-07-31 11:58] LABS: Alanine Aminotransferase 18 IU/L (<50); Albumin Globulin Ratio 0.8 (1.0-2.8); Alkaline Phosphatase 130 U/L (38-126); Aspartate Aminotransferase 28 IU/L (17-59); BUN Creatinine Ratio 26.4 (6-22); Bilirubin Total 0.7 mg/dL (0.2-1.3); Blood Urea Nitrogen 28 mg/dL (9-20); Calcium 9.2 mg/dL (8.4-10.2); Carbon Dioxide 28 mmol/L (22-32); Chloride 106 mmol/L (98-107); Estimated Glomerular Filt Rate > 60.0 mL/min (>60); Globulin 3.7 g/dL (1.7-4.1); Glucose 115 mg/dL (80-110); HEMOLYSIS 30 (0-50); Potassium 3.8 mmol/L (3.4-5.1); Sodium 139 mmol/L (137-145); Total Protein 6.7 g/dL (6.3-8.2)
[2020-07-31 12:08] LABS: Bacteria Urine Few (2-10); Culture Indicated Urine Cult Not Indicated; RBC Urine 0-1/HPF (0-5/HPF); WBC Urine 0-1/HPF (0-5/HPF)
== END ==
PROVIDERS: Visit Provider Nurse Practitioner
DX: R41.0 Disorientation, unspecified (principal)
CPT/HCPCS: 80053; 81001; 85025; 87086

== ENCOUNTER → 2020-08-02 09:21 | Outpatient (ROUT) | payer MEDICARE, BC, SELFPAY ==
[2020-08-02 09:29] LABS: INR 1.5 (0.9-1.3); Prothrombin Time 16.7 SECONDS (10.1-12.7)
== END ==
PROVIDERS: Visit Provider Nurse Practitioner
DX: I48.91 Unspecified atrial fibrillation (principal)
CPT/HCPCS: 85610

== ENCOUNTER → 2020-08-08 13:35 | Outpatient (CLI) | payer MEDICARE, BC, SELFPAY ==
--- NOTE | 2020-08-08 | DI.CT.S_ITS ---
PROCEDURE: CT HEAD/BRAIN WO CON INDICATIONS: OCCULAR NEURO FACIAL TECHNIQUE: Noncontrast 4.5 mm thick angled axial sections acquired from the foramen magnum to the vertex, with coronal and sagittal reformats. For radiation dose reduction, the following was used: automated exposure control, adjustment of mA and/or kV according to patient size. COMPARISON: None. FINDINGS: Image quality: Excellent. CSF spaces: Basal cisterns are patent. No extra-axial fluid collections. The ventricles are symmetric in size and shape. Brain: No intracranial bleeds. There is a 3.2 x 2.0 x 2.4 centimeter slightly hyperdense right frontal convexity parafalcine extra-axial mass. There is mild cerebral volume loss for age, with resultant ventricular and sulcal prominence. There are mild periventricular and deep white matter chronic small vessel ischemic changes. Chronic left cerebellar hemisphere infarct. Small, chronic right cerebellar hemisphere lacunar infarcts. There is intracranial internal carotid artery atherosclerosis. Skull and face: Calvarium and visualized facial bones appear intact, without suspicious lesions. Sinuses: Visualized sinuses and mastoids are clear. IMPRESSION: 1. No acute intracranial disease process. 2. Chronic left cerebellar hemisphere infarct. Chronic right cerebellar hemisphere lacunar infarcts. 3. 3.2 x 2.0 x 2.4 centimeter right frontal convexity parafalcine extra-axial mass. Lesion may represent a meningioma, however MRI of the brain with and without contrast is recommended for definitive characterization when clinically feasible. Dictated by: Mayra Rodriguez MD, PhD on 08/08/2020 at 14:12 Approved by: Mayra Rodriguez MD, PhD on 08/08/2020 at 14:16
== END ==
PROVIDERS: PCP Nurse Practitioner; Referring Provider Nurse Practitioner; Visit Provider Nurse Practitioner
DX: G51.9 Disorder of facial nerve, unspecified (principal); G93.9 Disorder of brain, unspecified; I65.29 Occlusion and stenosis of unspecified carotid artery
CPT/HCPCS: 70450

== ENCOUNTER → 2021-06-10 14:14 | Outpatient (CLI) | payer MEDICARE, BC, SELFPAY ==
[2021-06-10 20:02] LABS: Hematocrit 44.2 % (41-53); Hemoglobin 14.7 g/dL (13.5-17.5)
[2021-06-10 20:25] LABS: BUN Creatinine Ratio 21.5 (6-22); Blood Urea Nitrogen 28 mg/dL (9-20); Calcium 9.3 mg/dL (8.4-10.2); Carbon Dioxide 28 mmol/L (22-32); Chloride 105 mmol/L (98-107); Estimated Glomerular Filt Rate 53.3 mL/min (>60); Glucose 181 mg/dL (80-110); HEMOLYSIS 22 (0-50); Potassium 4.5 mmol/L (3.4-5.1); Sodium 139 mmol/L (137-145)
[2021-06-10 20:50] LABS: Creatinine Urine Random 160.3 mg/dL; Protein (Total) Urine Random 155 mg/dL (0-12); Protein Creatinine Ratio Urine 0.96 GRAM/24H
[2021-06-12 11:59] LABS: Parathyroid Hormone Int 39 pg/mL (15-65)
== END ==
PROVIDERS: PCP Nurse Practitioner; Visit Provider Student in an Organized Health Care Education/Training Program
DX: D64.9 Anemia, unspecified (principal); R80.9 Proteinuria, unspecified; N05.9 Unspecified nephritic syndrome with unspecified morphologic changes
CPT/HCPCS: 80048; 82570; 83970; 84156; 85014; 85018

== ENCOUNTER → 2021-07-10 10:00 | Outpatient (CLI) | payer MEDICARE, BC, SELFPAY ==
[2021-07-10 19:23] LABS: Alanine Aminotransferase 15 IU/L (<50); Albumin 3.8 g/dL (3.5-5.0); Albumin Globulin Ratio 1.2 (1.0-2.8); Alkaline Phosphatase 90 U/L (38-126); Aspartate Aminotransferase 25 IU/L (17-59); BUN Creatinine Ratio 21.2 (6-22); Bilirubin Total 0.7 mg/dL (0.2-1.3); Blood Urea Nitrogen 28 mg/dL (9-20); Calcium 9.7 mg/dL (8.4-10.2); Carbon Dioxide 28 mmol/L (22-32); Chloride 105 mmol/L (98-107); Cholesterol 128 mg/dL (140-199); Estimated Glomerular Filt Rate 52.3 mL/min (>60); Globulin 3.2 g/dL (1.7-4.1); Glucose 159 mg/dL (80-110); HDL Cholesterol 37 mg/dL (40-60); HEMOLYSIS < 15 (0-50); LDL Cholesterol Calculated 68 mg/dL (<100); Potassium 4.5 mmol/L (3.4-5.1); Sodium 140 mmol/L (137-145); Triglycerides 113 mg/dL (35-150)
[2021-07-10 19:36] LABS: Add Manual Diff / Slide Review NO; Basophils Absolute Auto 100 /uL (0-100); Basophils Percent Auto 1.2 % (0-2); Eosinophils Absolute Auto 200 /uL (0-450); Eosinophils Percent Auto 2.7 % (2-4); Hematocrit 43.4 % (41-53); Hemoglobin 14.7 g/dL (13.5-17.5); Lymphocytes Absolute Auto 1400 /uL (1100-4500); Lymphocytes Percent Auto 18.2 % (25-40); Mean Corpuscular Hemoglobin 31.7 PG (26-34); Mean Corpuscular Volume 93.3 fL (80-100); Monocytes Absolute Auto 1000 /uL (0-900); Monocytes Percent Auto 12.9 % (3-14); Neutrophils Absolute Auto 5100 /uL (1500-7000); Platelet Count 196 X10^3/uL (150-400); Red Blood Cell Count 4.65 X10^6/uL (4.5-5.9); Red Cell Distribution Width 12.8 % (11.6-14.8); White Blood Cell Count 7.8 X10^3/uL (4.5-11.0)
[2021-07-10 20:12] LABS: Hemoglobin A1C% w Est Avg Glu 7.6 % (4.0-6.0)
== END ==
PROVIDERS: PCP Nurse Practitioner; Referring Provider Family Medicine; Visit Provider Family Medicine
DX: E11.21 Type 2 diabetes mellitus with diabetic nephropathy (principal); E11.22 Type 2 diabetes mellitus with diabetic chronic kidney disease; I35.9 Nonrheumatic aortic valve disorder, unspecified; I48.91 Unspecified atrial fibrillation; Z79.01 Long term (current) use of anticoagulants; N18.30 Chronic kidney disease, stage 3 unspecified
CPT/HCPCS: 80053; 80061; 83036; 85025

== ENCOUNTER → 2021-10-08 10:06 | Outpatient (CLI) | payer MEDICARE, BC, SELFPAY ==
[2021-10-08 19:33] LABS: Hemoglobin A1C% w Est Avg Glu 7.8 % (4.0-6.0)
== END ==
PROVIDERS: PCP Family Medicine; Visit Provider Family Medicine
DX: E11.59 Type 2 diabetes mellitus with other circulatory complications (principal)
CPT/HCPCS: 83036

== ENCOUNTER → 2022-01-27 09:30 | Outpatient (CLI) | payer MEDICARE, BC, SELFPAY ==
[2022-01-27 20:50] LABS: Hemoglobin A1C% w Est Avg Glu 7.6 % (4.0-6.0)
== END ==
PROVIDERS: PCP Family Medicine; Visit Provider Physician Assistant
DX: E11.21 Type 2 diabetes mellitus with diabetic nephropathy (principal)
CPT/HCPCS: 83036

== ENCOUNTER → 2022-02-13 10:25 | Outpatient (CLI) | payer MEDICARE, BC, SELFPAY ==
[2022-02-13 18:25] LABS: Alanine Aminotransferase 13 IU/L (<50); Albumin 3.8 g/dL (3.5-5.0); Albumin Globulin Ratio 1.2 (1.0-2.8); Alkaline Phosphatase 77 U/L (38-126); Aspartate Aminotransferase 23 IU/L (17-59); BUN Creatinine Ratio 20.3 (6-22); Bilirubin Total 0.9 mg/dL (0.2-1.3); Blood Urea Nitrogen 30 mg/dL (9-20); Calcium 9.4 mg/dL (8.4-10.2); Carbon Dioxide 29 mmol/L (22-32); Chloride 105 mmol/L (98-107); Estimated Glomerular Filt Rate 45.7 mL/min (>60); Globulin 3.3 g/dL (1.7-4.1); Glucose 136 mg/dL (80-110); HEMOLYSIS < 15 (0-50); Potassium 4.8 mmol/L (3.4-5.1); Sodium 140 mmol/L (137-145); Total Protein 7.1 g/dL (6.3-8.2)
== END ==
PROVIDERS: PCP Family Medicine; Visit Provider Physician Assistant
DX: E11.21 Type 2 diabetes mellitus with diabetic nephropathy (principal)
CPT/HCPCS: 80053

== ENCOUNTER 2022-02-20 08:50 | Emergency (ER) | payer MEDICARE, BC, SELFPAY ==
[2022-02-20 08:50] VITALS: BP 187/83; PULSE 53; RESP 18; TEMP 36.5; O2SAT 99; BMI 21.5
--- NOTE | 2022-02-20 09:04 | ED.EAR ---
HPI - Ear Problem General Stated complaint: peice of hearing aide stuck in left ear Time Seen by Provider: 02/20/22 08:57 History of Present Illness HPI Narrative: The Tulip is missing off the patient's left hearing aid. He demonstrates that the plastic cap is missing. He is unsure how long it has been missing. He has no ear pain. He has no ear discharge. His hearing is at baseline, with the use of a hearing aid. He has no sinus pressure, no sore throat, no cough, no acute illness. Related Data Home Medications Medication Instructions Recorded Confirmed acetaminophen 500 mg tablet 500 mg PO Q6H PRN 03/18/21 02/05/22 aliskiren 300 mg tablet (Tekturna) 300 mg PO DAILY tab 03/18/21 02/05/22 cholecalciferol (vitamin D3) 50 50 mcg PO DAILY 03/18/21 02/05/22 mcg (2,000 unit) capsule losartan 50 mg tablet 50 mg PO BID 03/18/21 02/05/22 hydralazine 25 mg tablet 25 mg PO BID tab 12/16/21 02/05/22 Previous Rx's Medication Instructions Recorded Disabled Parking Permit ea #1 07/22/17 simvastatin 40 mg tablet 40 mg PO QPM #90 tab 12/01/21 dapagliflozin 10 mg tablet 10 mg PO QAM #90 tab 12/16/21 (Farxiga) warfarin 5 mg tablet (Jantoven) 5 mg PO SEE INSTRUCTIONS #30 tab 12/16/21 terazosin 5 mg capsule 5 mg PO DAILY #90 cap 01/16/22 metformin 500 mg tablet 1,000 mg PO BID #120 tab 02/03/22 triamcinolone acetonide 0.1 % 1 applic TOPICAL BID #30 g 02/03/22 topical ointment blood sugar diagnostic (Blood #100 ea 02/04/22 Glucose Test) blood-glucose meter (Blood Glucose #1 ea 02/04/22 Monitoring) carvedilol 6.25 mg tablet See Rx Instructions .ROUTE 02/11/22 .COMPLEX #180 tab Allergies Allergy/AdvReac Type Severity Reaction Status Date / Time ciprofloxacin [From CIPRO] Allergy Severe Anaphylaxis Verified 02/05/22 10:31 benazepril [From LOTENSIN] Allergy Intermediate Anaphylaxis Verified 02/05/22 10:31 cephalexin [From KEFLEX] Allergy Intermediate Anaphylaxis Verified 02/05/22 10:31 Calcium Channel Blocking AdvReac Severe Anaphylaxis Verified 02/05/22 10:31 Agent Dilt Opioids - Morphine Analogues AdvReac Severe Hallucinati Verified 02/05/22 10:31 ng ALCIDES Inhibitors AdvReac Anaphylaxis Verified 02/05/22 10:31 Review of Systems Constitutional Comments: As noted HPI Patient History Medical History Aortic aneurysm CKD stage 3 due to type 2 diabetes mellitus Diabetes Foreign body in auditory canal Hypertension Personal history of transient ischemic attack (TIA), 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 Surgical History History of knee replacement Knee joint replacement status Family History Father Stroke Social History household members: spouse Smoking Status: Former smoker alcohol intake: current substance use type: does not use Smoking Status: Former smoker alcohol intake frequency: 0-2 drinks per day Substance Use Type: does not use Exam Const General: cooperative, healthy appearing and comfortable HENMT Head: normocephalic and atraumatic Ears: external ears normal, TM's normal bilaterally, EAC's normal and other (No evidence of left ear foreign body, the hearing aid part is not present) Mouth: oral mucosae normal Eyes General: appearance normal, both eyes and all related structures Discharge Plan Departure Patient Disposition: Home Clinical Impression: Foreign body in left ear, Essential (primary) hypertension Activity Restrictions/Additional Instructions: The patient has no foreign body in either ear. He is on blood pressure medications. It is noted his blood pressure is elevated. He is instructed follow up with his doctor. The patient was rated leave after exam, he was verbally discharge. Prescriptions: No Action Disabled Parking Permit Qty: 1 0RF simvastatin 40 mg tablet 40 mg PO QPM Qty: 90 0RF terazosin 5 mg capsule 5 mg PO DAILY Qty: 90 1RF (DME) blood-glucose meter [Blood Glucose Monitoring] Kit See Rx Instructions .Route Qty: 1 0RF Rx Instructions: Check sugars TID (DME) Blood Glucose Test Strip See Rx Instructions .Route Qty: 100 4RF Rx Instructions: As directed carvedilol 6.25 mg tablet See Rx Instructions .ROUTE .COMPLEX Qty: 180 1RF Dose Instruction: TAKE 1 TABLET TWICE A DAY Rx Instructions: TAKE 1 TABLET TWICE A DAY hydralazine 25 mg tablet 25 mg PO BID 0RF Farxiga 10 mg tablet 10 mg PO QAM Qty: 90 1RF warfarin [Jantoven] 5 mg tablet 5 mg PO SEE INSTRUCTIONS Qty: 30 3RF Rx Instructions: 5 mg x 4 days, 2.5 mg x 3 days aliskiren [Tekturna] 300 mg tablet 300 mg PO DAILY 0RF losartan 50 mg tablet 50 mg PO BID 0RF cholecalciferol (vitamin D3) 50 mcg (2,000 unit) capsule 50 mcg PO DAILY 0RF acetaminophen 500 mg tablet 500 mg PO Q6H PRN0RF metformin 500 mg tablet 1,000 mg PO BID Qty: 120 2RF Rx Instructions: Taper as tolerated; take with food triamcinolone acetonide 0.1 % ointment 1 applic topical BID Qty: 30 0RF Rx Instructions: use sparingly; do not use more than two weeks Referrals: Nina Heard, [Primary Care Provider] -
== END 2022-02-20 09:05 | disposition home or self-care (01) ==
PROVIDERS: Emergency Provider Emergency Medicine; PCP Family Medicine
DX: Z71.1 Person with feared health complaint in whom no diagnosis is made (principal); I10 Essential (primary) hypertension; Z87.891 Personal history of nicotine dependence
CPT/HCPCS: 99281

== ENCOUNTER → 2022-02-25 08:34 | Outpatient (CLI) | payer MEDICARE, BC, SELFPAY ==
[2022-02-25 19:04] LABS: Hematocrit 41.5 % (41-53); Hemoglobin 14.2 g/dL (13.5-17.5)
[2022-02-25 19:12] LABS: BUN Creatinine Ratio 23.6 (6-22); Blood Urea Nitrogen 33 mg/dL (9-20); Calcium 9.3 mg/dL (8.4-10.2); Carbon Dioxide 28 mmol/L (22-32); Chloride 105 mmol/L (98-107); Estimated Glomerular Filt Rate 48.8 mL/min (>60); Glucose 146 mg/dL (80-110); HEMOLYSIS < 15 (0-50); Potassium 4.8 mmol/L (3.4-5.1); Sodium 137 mmol/L (137-145)
[2022-02-25 19:43] LABS: Creatinine Urine Random 76.2 mg/dL; Protein (Total) Urine Random 31 mg/dL (0-12)
[2022-02-27 06:42] LABS: Parathyroid Hormone Int 40 pg/mL (15-65)
== END ==
PROVIDERS: PCP Family Medicine; Visit Provider Student in an Organized Health Care Education/Training Program
DX: D64.9 Anemia, unspecified (principal); N05.9 Unspecified nephritic syndrome with unspecified morphologic changes; N25.81 Secondary hyperparathyroidism of renal origin; R80.9 Proteinuria, unspecified
CPT/HCPCS: 80048; 82570; 83970; 84156; 85014; 85018

== ENCOUNTER → 2022-04-21 10:46 | Outpatient (CLI) | payer MEDICARE, BC, SELFPAY ==
[2022-04-21 18:34] LABS: Hemoglobin A1C% w Est Avg Glu 6.6 % (4.0-6.0)
[2022-04-21 18:57] LABS: Prostate Specific Antigen Scrn 2.01 ng/mL (0.1-4.0)
== END ==
PROVIDERS: PCP Physician Assistant; Visit Provider Physician Assistant
DX: E11.21 Type 2 diabetes mellitus with diabetic nephropathy (principal); Z12.5 Encounter for screening for malignant neoplasm of prostate
CPT/HCPCS: 83036; G0103

== ENCOUNTER → 2022-05-25 08:07 | Outpatient (CLI) | payer MEDICARE, BC, SELFPAY ==
[2022-05-25 19:46] LABS: Hemoglobin A1C% w Est Avg Glu 6.1 % (4.0-6.0)
== END ==
PROVIDERS: PCP Physician Assistant; Visit Provider Physician Assistant
DX: E11.21 Type 2 diabetes mellitus with diabetic nephropathy (principal)
CPT/HCPCS: 83036

== ENCOUNTER → 2022-06-15 10:27 | Outpatient (CLI) | payer MEDICARE, BC, SELFPAY ==
[2022-06-15 20:02] LABS: Add Manual Diff / Slide Review NO; Basophils Absolute Auto 0 /uL (0-100); Basophils Percent Auto 0.4 % (0-2); Eosinophils Absolute Auto 200 /uL (0-450); Eosinophils Percent Auto 3.3 % (2-4); Hematocrit 39.7 % (41-53); Hemoglobin 13.7 g/dL (13.5-17.5); Lymphocytes Absolute Auto 1100 /uL (1100-4500); Lymphocytes Percent Auto 14.6 % (25-40); Mean Corpuscular HGB Conc 34.6 % (30-36); Mean Corpuscular Hemoglobin 31.2 PG (26-34); Mean Corpuscular Volume 90.1 fL (80-100); Monocytes Absolute Auto 1000 /uL (0-900); Monocytes Percent Auto 13.7 % (3-14); Neutrophils Absolute Auto 4900 /uL (1500-7000); Platelet Count 165 X10^3/uL (150-400); Red Blood Cell Count 4.41 X10^6/uL (4.5-5.9); Red Cell Distribution Width 12.8 % (11.6-14.8); White Blood Cell Count 7.2 X10^3/uL (4.5-11.0)
[2022-06-15 21:02] LABS: Vitamin B12 215 pg/mL (239-931)
== END ==
PROVIDERS: PCP Family Medicine; Visit Provider Family Medicine
DX: E11.21 Type 2 diabetes mellitus with diabetic nephropathy (principal); N05.9 Unspecified nephritic syndrome with unspecified morphologic changes; R26.89 Other abnormalities of gait and mobility
CPT/HCPCS: 82607; 85025

== ENCOUNTER → 2022-06-22 14:37 | Outpatient (CLI) | payer MEDICARE, BC, SELFPAY ==
[2022-06-22 19:58] LABS: HEMOLYSIS < 15 (0-50); Iron 62 ug/dL (49-181)
[2022-06-22 20:10] LABS: Percent Iron Saturation 18 % (20-50); Total Iron Binding Capacity 345 ug/dL (261-462); Transferrin 248 mg/dL (206-381)
[2022-06-22 20:55] LABS: Vitamin B12 208 pg/mL (239-931)
== END ==
PROVIDERS: PCP Family Medicine; Visit Provider Family Medicine
DX: E53.8 Deficiency of other specified B group vitamins (principal); D64.9 Anemia, unspecified; R26.89 Other abnormalities of gait and mobility
CPT/HCPCS: 82607; 83540; 83550

== ENCOUNTER → 2022-09-23 09:18 | Outpatient (CLI) | payer MEDICARE, BC, SELFPAY ==
[2022-09-23 19:29] LABS: Cholesterol 99 mg/dL (140-199); HDL Cholesterol 34 mg/dL (40-60); LDL Cholesterol Calculated 47 mg/dL (<100); Triglycerides 88 mg/dL (35-150)
[2022-09-23 19:35] LABS: BUN Creatinine Ratio 21.6 (6-22); Blood Urea Nitrogen 30 mg/dL (9-20); Calcium 9.1 mg/dL (8.4-10.2); Carbon Dioxide 29 mmol/L (22-32); Chloride 102 mmol/L (98-107); Estimated Glomerular Filt Rate 51 mL/min (>60); Glucose 98 mg/dL (80-110); HEMOLYSIS < 15 (0-50); Hemoglobin A1C% w Est Avg Glu 5.2 % (4.0-6.0); Potassium 4.3 mmol/L (3.4-5.1); Sodium 140 mmol/L (137-145)
[2022-09-23 19:44] LABS: Hematocrit 39.6 % (41-53); Hemoglobin 13.7 g/dL (13.5-17.5)
[2022-09-23 21:05] LABS: Creatinine Urine Random 102.2 mg/dL; Protein (Total) Urine Random 19 mg/dL (0-12); Protein Creatinine Ratio Urine 0.18 GRAM/24H
[2022-09-25 09:44] LABS: Parathyroid Hormone Int 39 pg/mL (15-65)
== END ==
PROVIDERS: Internal Medicine Cardiovascular Disease; PCP Family Medicine; Visit Provider Student in an Organized Health Care Education/Training Program
DX: N25.81 Secondary hyperparathyroidism of renal origin (principal); E11.21 Type 2 diabetes mellitus with diabetic nephropathy; D64.9 Anemia, unspecified; N05.9 Unspecified nephritic syndrome with unspecified morphologic changes; R80.9 Proteinuria, unspecified; E78.9 Disorder of lipoprotein metabolism, unspecified
CPT/HCPCS: 80048; 80061; 82570; 83036; 83970; 84156; 85014; 85018

== ENCOUNTER 2022-09-25 12:08 | Observation (INO) | payer MEDICARE, BC, SELFPAY ==
[2022-09-25] VITALS (16 sets, daily range): BP systolic 126–198; BP diastolic 46–83; PULSE 55–67; RESP 14–18; TEMP 36.3–37.3; O2SAT 96–99; BMI 22.8
--- NOTE | 2022-09-25 12:16 | DI.RAD.S_ITS ---
PROCEDURE: XR HIP W PEL IF DONE RT 2V INDICATIONS: fall with hip pain TECHNIQUE: AP pelvis with lateral view of the right hip. COMPARISON: None. FINDINGS: Bones: Generalized osteopenia. Osseous irregularity at the right and left pubic bones is suspicious for fractures of uncertain age. Subtle lucency is seen at the superior right acetabulum. Proximal femurs appear to be intact. Degenerative changes are seen in the included lumbar spine. Soft tissues: The visualized bowel gas pattern is normal. No suspicious soft tissue calcifications. IMPRESSION: Linear lucency at the superior right acetabulum is suspicious for a nondisplaced fracture. Osseous irregularities are seen in the bilateral pubic bones of uncertain age. CT of the pelvis was subsequently performed for further evaluation. Approved by: Westley Esparza M.D. on 09/25/2022 at 13:39
--- NOTE | 2022-09-25 12:16 | DI.CT.S_ITS ---
PROCEDURE: CT HEAD/BRAIN WO CON INDICATIONS: fall on coumadin TECHNIQUE: Noncontrast 4.5 mm thick angled axial sections acquired from the foramen magnum to the vertex, with coronal and sagittal reformats. For radiation dose reduction, the following was used: automated exposure control, adjustment of mA and/or kV according to patient size. COMPARISON: [facility], CT, CT HEAD/BRAIN WO CON, 08/08/2020, 13:53. FINDINGS: Image quality: Excellent. CSF spaces: Basal cisterns are patent. No extra-axial fluid collections. The ventricles are symmetric in size and shape. Brain: No new intracranial bleeds or masses. A right frontal superior parafalcine mass contiguous with the midline falx is again noted, relatively high in radiodensity and previously identified 08/08/20 when it was described as measuring 3.2 x 2.0 x 2.4 cm. This has mildly enlarged in size with current dimensions 3 point 4 cm AP, 2.2 cm transverse, and 2.6 cm craniocaudad. No adjacent edema has developed. There is cerebral volume loss for age, with resultant ventricular and sulcal prominence. There are periventricular and deep white matter chronic small vessel ischemic changes. There is intracranial internal carotid artery atherosclerosis. Skull and face: Calvarium and visualized facial bones appear intact, without suspicious lesions. Sinuses: Visualized sinuses and mastoids are clear. IMPRESSION: No acute trauma found. No intracranial hemorrhage. Right parafalcine frontal convexity hyperdense mass abutting the meningeal surface of the falx in that area again noted, most recently imaged by CT scanning 08/08/20 and having only mildly in large in size as discussed above. 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 Dictated by: Edmund Nicole M.D. on 09/25/2022 at 13:29 Approved by: Edmund Nicole M.D. on 09/25/2022 at 13:33
--- NOTE | 2022-09-25 12:16 | DI.CT.S_ITS ---
PROCEDURE: CT CERVICAL SPINE WO CON INDICATIONS: fall TECHNIQUE: Noncontrast 3 mm thick sections acquired from the skull base to the T4 level. Sagittal and coronal reformats were then constructed. For radiation dose reduction, the following was used: automated exposure control, adjustment of mA and/or kV according to patient size. COMPARISON: None. FINDINGS: Image quality: Excellent. Bones: No fractures or dislocations. Visualized superior ribs are intact. Soft tissues: Prevertebral soft tissues are normal in thickness. No paravertebral hematomas. No apical pneumothoraces. 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 Dictated by: Edmund Nicole M.D. on 09/25/2022 at 13:28 Approved by: Edmund Nicole M.D. on 09/25/2022 at 13:29
--- NOTE | 2022-09-25 12:16 | DI.RAD.S_ITS ---
PROCEDURE: XR CHEST 1V INDICATIONS: fall TECHNIQUE: One view of the chest was acquired. COMPARISON: None. FINDINGS: Surgical changes and devices: None. Lungs and pleura: Lungs are clear. No pleural effusions or pneumothorax. Mediastinum: Mediastinal contours appear normal. Heart size is normal. Aortic atherosclerotic calcifications. Bones and chest wall: No suspicious bony lesions. Overlying soft tissues appear unremarkable. IMPRESSION: No acute cardiopulmonary abnormality. Approved by: Westley Esparza M.D. on 09/25/2022 at 13:39
--- NOTE | 2022-09-25 12:38 | PC.NURSE ---
Patient incontinent to stool and urine, bed linens and clothing changed. Placed in depends. States last time he had a fall he broke his pelvis in multiple places and wa sincontinent for a while.
[2022-09-25 12:45] LABS: INR 2.6 (0.9-1.3); Prothrombin Time 30.6 SECONDS (10.1-12.7)
[2022-09-25 12:48] LABS: PTT Partial Thromboplastin Tim 37 SECONDS (26-36)
[2022-09-25 12:48] LABS: Alanine Aminotransferase 29 IU/L (<50); Albumin 3.8 g/dL (3.5-5.0); Albumin Globulin Ratio 1.1 (1.0-2.8); Alkaline Phosphatase 81 U/L (38-126); Aspartate Aminotransferase 57 IU/L (17-59); BUN Creatinine Ratio 24.6 (6-22); Bilirubin Total 1.3 mg/dL (0.2-1.3); Blood Urea Nitrogen 34 mg/dL (9-20); Carbon Dioxide 24 mmol/L (22-32); Chloride 106 mmol/L (98-107); Creatine Kinase 1134 U/L (55-170); Estimated Glomerular Filt Rate 51 mL/min (>60); Globulin 3.4 g/dL (1.7-4.1); Glucose 115 mg/dL (80-110); HEMOLYSIS 16 (0-50); Potassium 4.2 mmol/L (3.4-5.1); Sodium 139 mmol/L (137-145); Total Protein 7.2 g/dL (6.3-8.2)
[2022-09-25 12:52] LABS: Hematocrit 41.7 % (41-53); Hemoglobin 14.2 g/dL (13.5-17.5); Mean Corpuscular HGB Conc 34.1 % (30-36); Mean Corpuscular Hemoglobin 30.9 PG (26-34); Mean Corpuscular Volume 90.6 fL (80-100); Platelet Count 130 X10^3/uL (150-400); Red Cell Distribution Width 12.7 % (11.6-14.8); White Blood Cell Count 7.4 X10^3/uL (4.5-11.0)
[2022-09-25 12:52] LABS: COVID19 -Nasal RAPID Negative (Negative)
[2022-09-25 12:53] LABS: Add Manual Diff / Slide Review YES
--- NOTE | 2022-09-25 12:55 | ED.FALL ---
HPI - Fall General Chief Complaint: Fall Stated Complaint: GLF last night,right hip pain Time Seen by Provider: 09/25/22 12:16 Source: patient and EMS Mode of arrival: EMS History of Present Illness HPI Narrative: Patient is an 82-year-old male history of hypertension, TIA, diabetes is presenting today after a ground level fall. He said he got up to use the restroom in the middle of night lost his balance and fell onto his right hip. Immediate pain was unable to bear weight. He required transport from the [facility]. He previously did fall and fracture his pelvis and left hip in 2019. He takes warfarin. He denies hitting his head or losing consciousness. No nausea or vomiting. No neck pain. Related Data Home Medications Medication Instructions Recorded Confirmed acetaminophen 500 mg tablet 500 mg PO Q6H PRN Breakthrough 03/18/21 09/25/22 Pain, Mild aliskiren 300 mg tablet (Tekturna) 300 mg PO DAILY 03/18/21 09/25/22 cholecalciferol (vitamin D3) 50 50 mcg PO DAILY 03/18/21 09/25/22 mcg (2,000 unit) capsule losartan 50 mg tablet 50 mg PO BID 03/18/21 09/25/22 hydralazine 25 mg tablet 25 mg PO BID 12/16/21 09/25/22 Previous Rx's Medication Instructions Recorded triamcinolone acetonide 0.1 % 1 applic topical BID #30 grams 02/03/22 topical ointment simvastatin 40 mg tablet 40 mg PO QPM #90 tabs 03/20/22 dapagliflozin 10 mg tablet 10 mg PO QAM #90 tabs 05/01/22 ([facility]) blood-glucose meter (Blood Glucose #1 ea 05/04/22 Monitoring kit) warfarin 5 mg tablet (Jantoven) 5 mg PO SEE INSTRUCTIONS #30 tabs 05/21/22 semaglutide 0.25 mg or 0.5 mg (2 See Rx Instructions .Route 06/04/22 mg/1.5 mL) subcutaneous pen .COMPLEX #1.5 mL injector (Ozempic) terazosin 5 mg capsule See Rx Instructions .Route 06/04/22 .COMPLEX #90 caps carvedilol 6.25 mg tablet See Rx Instructions .Route 07/29/22 .COMPLEX #180 tabs blood sugar diagnostic (True #100 ea 09/17/22 Metrix Glucose Test Strip) Allergies Allergy/AdvReac Type Severity Reaction Status Date / Time ciprofloxacin [From CIPRO] Allergy Severe Anaphylaxis Verified 09/25/22 12:11 benazepril [From LOTENSIN] Allergy Intermediate Anaphylaxis Verified 09/25/22 12:11 cephalexin [From KEFLEX] Allergy Intermediate Anaphylaxis Verified 09/25/22 12:11 Calcium Channel Blocking AdvReac Severe Anaphylaxis Verified 09/25/22 12:11 Agent Dilt Opioids - Morphine Analogues AdvReac Severe Hallucinati Verified 09/25/22 12:11 ng ALCIDES Inhibitors AdvReac Anaphylaxis Verified 09/25/22 12:11 Review of Systems Review of Systems Narrative: GENERAL: Denies chills, fatigue, malaise, fever, sweats, travel HEENT: Denies sinus pain, ear pain, sore throat, difficulty swallowing, neck pain RESPIRATORY: Denies dyspnea, cough, wheezing, hemoptysis, sputum. CARDIOVASCULAR: Denies chest pain, palpitations, orthopnea, edema GASTROINTESTINAL: Denies nausea, vomiting, abdominal pain, diarrhea, constipation, melena. : Denies dysuria, frequency, incontinence, hematuria, urinary retention, flank pain. MUSCULOSKELETAL: See HPI SKIN: No rash, no erythema, no pruritus NEUROLOGIC: Denies weakness, dizziness, headache, numbness, change in speech, confusion PSYCHIATRIC: No concerning psychosocial issues. 12 point review of systems is negative except for those stated above and HPI Patient History Medical History Aortic aneurysm Chalazion left lower eyelid Colon cancer screening Foreign body in auditory canal Hypertension Personal history of transient ischemic attack (TIA), and cerebral infarction without residual deficits Skin cancer screening Type 2 diabetes mellitus with diabetic nephropathy Surgical History History of knee replacement Knee joint replacement status Family History Father Stroke Social History household members: spouse Smoking Status: Former smoker alcohol intake: current substance use type: does not use Smoking Status: Former smoker alcohol intake frequency: 0-2 drinks per day Substance Use Type: does not use Exam Initial Vital Signs Initial Vital Signs: Vital Signs Temperature 97.9 F 09/25/22 12:07 Pulse Rate 55 L 09/25/22 12:07 Respiratory Rate 14 09/25/22 12:07 Blood Pressure 198/83 H 09/25/22 12:07 Pulse Oximetry 99 09/25/22 12:07 Oxygen Delivery Method 09/25/22 12:07 GENERAL: Alert very pleasant 82-year-old male and in no acute distress. HEENT: Head atraumatic,EOMI, pupils reactive, face symmetric, moist mucous membranes CARDIOVASCULAR: Regular rate and rhythm without murmurs, rubs or gallops. RESPIRATORY: Breath sounds equal bilaterally, no wheezes rales or rhonchi. ABDOMEN: Soft, nontender. Normoactive bowel sounds all 4 quadrants. No guarding or rebound. : No CVA tenderness EXTREMITIES: Normal range of motion, no clubbing or edema. Neurovascularly intact, pelvis pain pressing on left side causes pain in the right. NEUROLOGICAL: Alert and oriented x4. SKIN: Warm, dry, no laceration, no petechiae, no rashes or lesions. Course Orders Ordered: ED Orders 09/25/22 12:16 CT cervical spine wo con Stat CT head/brain wo con Stat XR chest 1V Stat XR hip w pel if done RT 2V Stat 09/25/22 12:20 CBC Auto Diff [Complete Blood Count AUTO DIFF] Stat CMP [Comprehensive Metabolic Panel] Stat Troponin & CK Cardiac Panel Stat 09/25/22 12:30 COVID19 -Nasal RAPID/Pre-Proc Stat PT [Prothrombin Time INR] Stat PTT [Partial Thromboplastin Time] Stat 09/25/22 12:59 CT pelvis wo con Stat 09/25/22 13:30 EKG-12 Lead Stat Acetaminophen (Acetaminophen 325 Mg Tablet) 650 mg PO Q6H PRN PRN Reason: Fever/Mild Pain (1-3) Atorvastatin Calcium (Atorvastatin 20 Mg Tablet) 20 mg PO BEDTIME TARYN Carvedilol (Carvedilol 3.125 Mg Tablet) 6.25 mg PO BID TARYN Dextrose (Dextrose 50 % In Water 25 Gm/50 Ml Syringe) 25 gm IV PRN PRN PRN Reason: Hypoglycemia Hydralazine HCl (Hydralazine 25 Mg Tablet) 25 mg PO BID TARYN Lidocaine (Lidocaine Patch 1 Each Adh..Patch) 1 each TOP DAILY TARYN Last Admin: 09/25/22 16:45 Dose: 1 each Documented By: MS Losartan Potassium (Losartan 50 Mg Tablet) 50 mg PO BID [facility] Melatonin (Melatonin 3 Mg Tablet) 6 mg PO BEDTIME PRN PRN Reason: Insomnia Naloxone HCl (Naloxone 0.4 Mg/Ml Vial) 0.2 mg IV Q2MIN PRN PRN Reason: Opiate Reversal Aliskiren [Tekturna] (300 Mg Tablet) 300 mg PO DAILY [facility] Dapagliflozin [ Farxiga] 10 Mg Tablet 10 mg PO DAILY [facility] Polyethylene Glycol (Polyethylene Glycol 3350 17 Gm Powd.Pack) 17 gm PO DAILY PRN PRN Reason: Constipation Sennosides (Sennosides 8.6 Mg Tablet) 8.6 mg PO BID PRN PRN Reason: Constipation Terazosin HCl (Terazosin 5 Mg Capsule) 5 mg PO DAILY [facility] Discontinued Medications Acetaminophen (Acetaminophen 325 Mg Tablet) 975 mg PO NOW ONE Stop: 09/25/22 13:24 Last Admin: 09/25/22 13:46 Dose: 975 mg Documented By: KIA Enoxaparin Sodium (Enoxaparin 40 Mg/0.4 Ml Syringe) 40 mg SUBCUT DAILY [facility] Last Admin: 09/25/22 17:22 Dose: Not Given Documented By: TANJA Sodium Chloride (Normal Saline 0.9%) 1,000 mls @ 1,000 mls/hr IV BOLUS ONE Stop: 09/25/22 14:23 Last Infusion: 09/25/22 14:53 Dose: 0 mls/hr Documented By: Admin: 09/25/22 13:47 Dose: 1,000 mls/hr Documented By: KIA Vital Signs Vital signs: Vital Signs - 8 hr 09/25/22 12:07 09/25/22 12:09 09/25/22 12:10 Temperature 97.9 F Pulse Rate 55 L Respiratory Rate 14 Blood Pressure 198/83 H 198/83 H Pulse Oximetry 99 99 Oxygen Delivery Method Room Air 09/25/22 12:10 09/25/22 12:30 09/25/22 12:31 Temperature Pulse Rate 59 L 59 L 62 Respiratory Rate Blood Pressure Pulse Oximetry 98 97 96 Oxygen Delivery Method 09/25/22 12:31 09/25/22 13:00 09/25/22 13:00 Temperature Pulse Rate 62 Respiratory Rate Blood Pressure 154/70 H 183/79 H Pulse Oximetry 98 Oxygen Delivery Method 09/25/22 13:18 09/25/22 13:18 09/25/22 13:30 Temperature Pulse Rate 60 60 Respiratory Rate Blood Pressure 173/72 H Pulse Oximetry 97 97 Oxygen Delivery Method 09/25/22 13:31 09/25/22 13:31 09/25/22 14:00 Temperature Pulse Rate 61 57 L Respiratory Rate Blood Pressure 169/73 H Pulse Oximetry 97 96 Oxygen Delivery Method 09/25/22 14:01 09/25/22 14:01 Temperature Pulse Rate 57 L Respiratory Rate Blood Pressure 158/67 H Pulse Oximetry 97 Oxygen Delivery Method MDM - Fall Lab Data Result diagrams: 09/25/22 12:20 09/25/22 12:20 Labs: Lab Results 09/25/22 09/25/22 09/25/22 Range/Units 12:20 12:20 12:30 WBC 7.4 (4.5-11.0) X10^3/uL RBC 4.60 (4.5-5.9) X10^6/uL Hgb 14.2 (13.5-17.5) g/dL Hct 41.7 (41-53) % MCV 90.6 (80-100) fL MCH 30.9 (26-34) PG MCHC 34.1 (30-36) % RDW 12.7 (11.6-14.8) % Plt Count 130 L (150-400) X10^3/uL Neut % (Auto) Not Reportable Lymph % (Auto) Not Reportable [place] % (Auto) Not Reportable Eos % (Auto) Not Reportable Baso % (Auto) Not Reportable Lymph # (Auto) Not Reportable [place] # (Auto) Not Reportable Baso # (Auto) Not Reportable Total Counted 100 Seg Neutrophils % 77.0 H (38-70) % Lymphocytes % (Manual) 8.0 L (25-45) % Atypical Lymphs % 1.0 H ( - 0) % Monocytes % (Manual) 14.0 H (2-11) % Neutrophils # (Manual) 5698 (1241-9606) /uL RBC Morphology Normal morphology PT 30.6 H (10.1-12.7) SECONDS INR 2.6 H (0.9-1.3) APTT 37 H (26-36) SECONDS Sodium 139 (137-145) mmol/L Potassium 4.2 (3.4-5.1) mmol/L Chloride 106 (98-107) mmol/L Carbon Dioxide 24 (22-32) mmol/L BUN 34 H (9-20) mg/dL Creatinine 1.38 H (0.66-1.25) mg/dL Estimated GFR 51 L (>60) mL/min BUN/Creatinine Ratio 24.6 H (6-22) Glucose 115 H (80-110) mg/dL Calcium 9.0 (8.4-10.2) mg/dL Total Bilirubin 1.3 (0.2-1.3) mg/dL AST 57 (17-59) IU/L ALT 29 (<50) IU/L Alkaline Phosphatase 81 (38-126) U/L Total Creatine Kinase 1134 H (55-170) U/L CK-MB (CK-2) 2.69 H (<2.37) ng/mL CK-MB (CK-2) Rel Index 0.2 L (1.5-5.0) % Troponin I < 0.012 (0.01-0.034) ng/mL Total Protein 7.2 (6.3-8.2) g/dL Albumin 3.8 (3.5-5.0) g/dL Globulin 3.4 (1.7-4.1) g/dL Albumin/Globulin Ratio 1.1 (1.0-2.8) SARS-CoV-2 (PCR) (Negative) 09/25/22 Range/Units 12:30 WBC (4.5-11.0) X10^3/uL RBC (4.5-5.9) X10^6/uL Hgb (13.5-17.5) g/dL Hct (41-53) % MCV (80-100) fL MCH (26-34) PG MCHC (30-36) % RDW (11.6-14.8) % Plt Count (150-400) X10^3/uL Neut % (Auto) Lymph % (Auto) [place] % (Auto) Eos % (Auto) Baso % (Auto) Lymph # (Auto) [place] # (Auto) Baso # (Auto) Total Counted Seg Neutrophils % (38-70) % Lymphocytes % (Manual) (25-45) % Atypical Lymphs % ( - 0) % Monocytes % (Manual) (2-11) % Neutrophils # (Manual) (2408-7351) /uL RBC Morphology PT (10.1-12.7) SECONDS INR (0.9-1.3) APTT (26-36) SECONDS Sodium (137-145) mmol/L Potassium (3.4-5.1) mmol/L Chloride (98-107) mmol/L Carbon Dioxide (22-32) mmol/L BUN (9-20) mg/dL Creatinine (0.66-1.25) mg/dL Estimated GFR (>60) mL/min BUN/Creatinine Ratio (6-22) Glucose (80-110) mg/dL Calcium (8.4-10.2) mg/dL Total Bilirubin (0.2-1.3) mg/dL AST (17-59) IU/L ALT (<50) IU/L Alkaline Phosphatase (38-126) U/L Total Creatine Kinase (55-170) U/L CK-MB (CK-2) (<2.37) ng/mL CK-MB (CK-2) Rel Index (1.5-5.0) % Troponin I (0.01-0.034) ng/mL Total Protein (6.3-8.2) g/dL Albumin (3.5-5.0) g/dL Globulin (1.7-4.1) g/dL Albumin/Globulin Ratio (1.0-2.8) SARS-CoV-2 (PCR) Negative (Negative) Imaging Data CT scan - head: Radiologist's Impression: [place] [address] CT Scan Report Signed Patient: Andrea Padilla MR#: [id number] : 1940 Acct:[id number] Age/Sex: 82 / M Date of Service: 09/25/22 Loc: ED Accession Number: [id number] ?? Procedure: CT head/brain wo con Ordering Provider: Halima Grant D.O. PROCEDURE:? CT HEAD/BRAIN WO CON ? INDICATIONS:? fall on coumadin ? TECHNIQUE:? Noncontrast 4.5 mm thick angled axial sections acquired from the foramen magnum to the vertex, with coronal and sagittal reformats.? For radiation dose reduction, the following was used:? automated exposure control, adjustment of mA and/or kV according to patient size.? ? COMPARISON:? [facility], CT, CT HEAD/BRAIN WO CON, 08/08/2020, 13:53. ? FINDINGS:? Image quality:? Excellent.? ? CSF spaces:? Basal cisterns are patent.? No extra-axial fluid collections.? The ventricles are symmetric in size and shape.? ? Brain:? No new intracranial bleeds or masses.? A right frontal superior parafalcine mass contiguous with the midline falx is again noted, relatively high in radiodensity and previously identified 08/08/20 when it was described as measuring 3.2 x 2.0 x 2.4 cm.? This has mildly enlarged in size with current dimensions 3 point 4 cm AP, 2.2 cm transverse, and 2.6 cm craniocaudad.? No adjacent edema has developed.? There is cerebral volume loss for age, with resultant ventricular and sulcal prominence.? There are periventricular and deep white matter chronic small vessel ischemic changes.? There is intracranial internal carotid artery atherosclerosis.? ? Skull and face:? Calvarium and visualized facial bones appear intact, without suspicious lesions.? ? Sinuses:? Visualized sinuses and mastoids are clear.? ? IMPRESSION:? No acute trauma found.? No intracranial hemorrhage.? Right parafalcine frontal convexity hyperdense mass abutting the meningeal surface of the falx in that area again noted, most recently imaged by CT scanning 08/08/20 and having only mildly in large in size as discussed above.? 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 ? ? Dictated by: Edmund Nicole M.D. on 09/25/2022 at 13:29 ? ? Approved by: Edmund Nicole M.D. on 09/25/2022 at 13:33 ? CT - cervical spine: Radiologist's Impression: [address] [address] [address] Scan Report Signed Patient: Andrea Padilla MR#: [id number] : 1940 Acct:[id number] Age/Sex: 82 / M Date of Service: 09/25/22 Loc: ED Accession Number: [id number] ?? Procedure: CT cervical spine wo con Ordering Provider: Botnick,Halima D.O. PROCEDURE:? CT CERVICAL SPINE WO CON ? INDICATIONS:? fall ? TECHNIQUE:? Noncontrast 3 mm thick sections acquired from the skull base to the T4 level.? Sagittal and coronal reformats were then constructed.? For radiation dose reduction, the following was used:? automated exposure control, adjustment of mA and/or kV according to patient size.? ? COMPARISON:? None. ? FINDINGS:? Image quality:? Excellent.? ? Bones:? No fractures or dislocations.? Visualized superior ribs are intact.? ? Soft tissues:? Prevertebral soft tissues are normal in thickness.? No paravertebral hematomas.? No apical pneumothoraces.? ? ? IMPRESSION:? 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 ? ? Dictated by: Edmund Nicole M.D. on 09/25/2022 at 13:28 ? Chest x-ray: Radiologist's Impression: [address] [address] XRay Report Signed Patient: Andrea Padilla MR#: [id number] : 1940 Acct:[id number] Age/Sex: 82 / M Date of Service: 09/25/22 Loc: ED Accession Number: [id number] ?? Procedure: XR chest 1V Ordering Provider: Halima Grant D.O. PROCEDURE:? XR CHEST 1V ? INDICATIONS:? fall ? TECHNIQUE:? One view of the chest was acquired.? ? COMPARISON:? None. ? FINDINGS:? ? Surgical changes and devices:? None.? ? Lungs and pleura:? Lungs are clear.? No pleural effusions or pneumothorax.? ? Mediastinum:? Mediastinal contours appear normal.? Heart size is normal.? Aortic atherosclerotic calcifications. ? Bones and chest wall:? No suspicious bony lesions.? Overlying soft tissues appear unremarkable.? ? IMPRESSION:? No acute cardiopulmonary abnormality. ? ? ? Approved by: Westley Esparza M.D. on 09/25/2022 at 13:39? Extremity x-ray #1: Radiologist's Impression: [place] [address] XRay Report Signed Patient: Andrea Padilla MR#: [id number] : 1940 Acct:[id number] Age/Sex: 82 / M Date of Service: 09/25/22 Loc: ED Accession Number: [id number] ?? Procedure: XR hip w pel if done RT 2V Ordering Provider: Halima Grant D.O. PROCEDURE:? XR HIP W PEL IF DONE RT 2V ? INDICATIONS:? fall with hip pain ? TECHNIQUE:? AP pelvis with lateral view of the right hip. ? COMPARISON:? None. ? FINDINGS:? ? Bones:? Generalized osteopenia.? Osseous irregularity at the right and left pubic bones is suspicious for fractures of uncertain age.? Subtle lucency is seen at the superior right acetabulum.? Proximal femurs appear to be intact.? Degenerative changes are seen in the included lumbar spine.? ? Soft tissues:? The visualized bowel gas pattern is normal.? No suspicious soft tissue calcifications.? ? IMPRESSION:? Linear lucency at the superior right acetabulum is suspicious for a nondisplaced fracture.? Osseous irregularities are seen in the bilateral pubic bones of uncertain age.? CT of the pelvis was subsequently performed for further evaluation. Approved by: Westley Esparza M.D. on 09/25/2022 at 13:39? CT Pelvis: Radiologist's Impression: Patient: Andrea Padilla MR#: [id number] : 1940 Acct:[id number] Age/Sex: 82 / M Date of Service: 09/25/22 Loc: ED Accession Number: [id number] ?? Procedure: CT pelvis wo con Ordering Provider: Halima Grant D.O. PROCEDURE:? CT PEL WO CON ? INDICATIONS:? right hip pain fall ? TECHNIQUE:? Noncontrast 3 mm axial sections acquired through the bony pelvis, with coronal and sagittal reformatting.? ? COMPARISON:? [facility], CR, XR HIP W PEL IF DONE RT 2V, 09/25/2022, 12:23. ? FINDINGS:? Image quality:? Excellent.? ? Bones:? Generalized osteopenia.? There is a minimally displaced comminuted intra-articular fracture of the right acetabulum predominantly involving the anterior wall.? There is up to 1 mm step-off at the superior hip articular surface.? Severe axial joint space narrowing is seen in the right hip.? Chronic mildly displaced fractures of the right anterior and inferior pubic rami is seen with corticated margins and osseous remodeling.? Chronic healed fractures are seen at the left superior and inferior pubic rami.? Multilevel degenerative changes are seen in the spine. ? Soft tissues:? There is a small right hip effusion.? No large soft tissue hematoma is seen.? Bladder is moderately distended.? Atherosclerotic calcifications are present.? Multiple diverticula are seen in the colon.? ? IMPRESSION:? 1. Acute, comminuted, intra-articular fracture of the right acetabulum that appears to predominantly involve the anterior wall. 2. 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 Chronic healed fractures of the left superior and inferior pubic rami. 3. Moderately distended urinary bladder. Approved by: Westley Esparza M.D. on 09/25/2022 at 13:52? ECG Data Interpretation: Normal sinus rhythm rate 63 NC interval 174 QRS 84 QTC 409 MDM Narrative Medical decision making narrative: Patient had a ground level fall landing on his right hip. He is found to have an acetabular fracture. No other injuries are found he is also on warfarin. States his tetanus reviewed images and is consulate at this time does not need to be transferred and no need for surgery. The patient's requests that he is not given opioid medications because he has severe hallucinations. He is given Tylenol. While at rest he does not appear to be in any pain. Blood work CPK found to have 1134, given IV fluids Dr. Reyes updated patient's symptoms test results and accepts patient Discharge Plan Departure Patient Disposition: Admitted As Inpatient Clinical Impression: Acetabular fracture Admit Date/Time: 09/25/22 14:59 Admit Provider: Erick Reyes
[2022-09-25 12:58] LABS: Troponin I < 0.012 ng/mL (0.01-0.034)
--- NOTE | 2022-09-25 12:59 | DI.CT.S_ITS ---
PROCEDURE: CT PEL WO CON INDICATIONS: right hip pain fall TECHNIQUE: Noncontrast 3 mm axial sections acquired through the bony pelvis, with coronal and sagittal reformatting. COMPARISON: [facility], CR, XR HIP W PEL IF DONE RT 2V, 09/25/2022, 12:23. FINDINGS: Image quality: Excellent. Bones: Generalized osteopenia. There is a minimally displaced comminuted intra-articular fracture of the right acetabulum predominantly involving the anterior wall. There is up to 1 mm step-off at the superior hip articular surface. Severe axial joint space narrowing is seen in the right hip. Chronic mildly displaced fractures of the right anterior and inferior pubic rami is seen with corticated margins and osseous remodeling. Chronic healed fractures are seen at the left superior and inferior pubic rami. Multilevel degenerative changes are seen in the spine. Soft tissues: There is a small right hip effusion. No large soft tissue hematoma is seen. Bladder is moderately distended. Atherosclerotic calcifications are present. Multiple diverticula are seen in the colon. IMPRESSION: 1. Acute, comminuted, intra-articular fracture of the right acetabulum that appears to predominantly involve the anterior wall. 2. 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 Chronic healed fractures of the left superior and inferior pubic rami. 3. Moderately distended urinary bladder. Approved by: Westley Esparza M.D. on 09/25/2022 at 13:52
[2022-09-25 13:03] LABS: CKMB % Relative Index 0.2 % (1.5-5.0); Creatine Kinase MB 2.69 ng/mL (<2.37)
[2022-09-25 13:33] LABS: Neutrophils Absolute Manual 5698 /uL (3000-5900); RBC Morphology Normal Morphology; Total Cells Counted 100
[2022-09-25] MEDS: ACETAMINOPHEN 325 MG TABLET 975 MG PO (13:46)
[2022-09-25] MEDS: SODIUM CHLORIDE 0.9% 1,000 ML 1000 ML IV (13:47)
--- NOTE | 2022-09-25 15:32 | P.CONS_ITS ---
History of Present Illness Consult details Date Patient Seen: 09/25/22 Time Patient Seen: 15:32 Chief complaint: GLF last night,right hip pain Reason for consult: Pelvic fracture Requesting provider: Halima Grant Narrative: Andrea is a pleasant 82 year old gentleman from [facility] who got up to go to the bathroom around 0300 today and suffered a GLF onto his right side. He immediately had right hip/leg pain but was able to crawl back to bed but not get into bed. His called 911 and the responders helped him back into bed and left. Around 829, he began to have increasing pain on the right and was unable to ambulate. 911 was called again and the same responders returned, and after conferring with others, the decision was made to fly him here. Imaging done in the ED revealed an acute right acetabular fracture as well as old right pelvic fractures. Andrea tells me these fractures occured about 2 years ago he was walking up low steps from his living room to his kitchen holding two heavy bags of groceries when he tripped and fell backwards. He has a h/o CVA and is chronically anticoagulated on warfarin. He has bilateral total knee arthroplasty. 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 Meds Home Medications and Allergies Home Medications Medication Instructions Recorded Confirmed Type Disabled Parking Permit ea ##1 07/22/17 09/24/22 Rx acetaminophen 500 mg tablet 500 mg PO Q6H PRN 03/18/21 09/24/22 History aliskiren 300 mg tablet (Tekturna) 300 mg PO DAILY 03/18/21 09/24/22 History cholecalciferol (vitamin D3) 50 50 mcg PO DAILY 03/18/21 09/24/22 History mcg (2,000 unit) capsule losartan 50 mg tablet 50 mg PO BID 03/18/21 09/24/22 History hydralazine 25 mg tablet 25 mg PO BID 12/16/21 09/24/22 History triamcinolone acetonide 0.1 % 1 applic topical BID #30 grams 02/03/22 09/24/22 Rx topical ointment simvastatin 40 mg tablet 40 mg PO QPM #90 tabs 03/20/22 09/24/22 Rx metformin 500 mg tablet 500 mg PO BID #60 tabs 04/16/22 09/24/22 Rx dapagliflozin 10 mg tablet 10 mg PO QAM #90 tabs 05/01/22 09/24/22 Rx (Farxiga) blood-glucose meter (Blood Glucose #1 ea 05/04/22 09/24/22 Rx Monitoring kit) warfarin 5 mg tablet (Jantoven) 5 mg PO SEE INSTRUCTIONS #30 tabs 05/21/22 09/24/22 Rx semaglutide 0.25 mg or 0.5 mg (2 See Rx Instructions .Route 06/04/22 09/24/22 Rx mg/1.5 mL) subcutaneous pen .COMPLEX #1.5 mL injector (Friday) terazosin 5 mg capsule See Rx Instructions .Route 06/04/22 09/24/22 Rx .COMPLEX #90 caps carvedilol 6.25 mg tablet See Rx Instructions .Route 07/29/22 09/24/22 Rx .COMPLEX #180 tabs blood sugar diagnostic (True #100 ea 09/17/22 09/24/22 Rx Metrix Glucose Test Strip) Allergies Allergy/AdvReac Type Severity Reaction Status Date / Time ciprofloxacin [From CIPRO] Allergy Severe Anaphylaxis Verified 09/25/22 12:11 benazepril [From LOTENSIN] Allergy Intermediate Anaphylaxis Verified 09/25/22 12:11 cephalexin [From KEFLEX] Allergy Intermediate Anaphylaxis Verified 09/25/22 12:11 Calcium Channel Blocking AdvReac Severe Anaphylaxis Verified 09/25/22 12:11 Agent Dilt Opioids - Morphine Analogues AdvReac Severe Hallucinati Verified 09/25/22 12:11 ng ALCIDES Inhibitors AdvReac Anaphylaxis Verified 09/25/22 12:11 Review of Systems Review of Systems ROS: Yes All systems reviewed with the patient and are negative except as otherwise documented Exam Vital Signs (past 8 hours): - 09/25/22 12:07 09/25/22 12:09 09/25/22 12:10 Temperature 97.9 F Pulse Rate 55 L Respiratory Rate 14 Blood Pressure 198/83 H 198/83 H Pulse Oximetry 99 99 Oxygen Delivery Method Room Air 09/25/22 12:10 09/25/22 12:30 09/25/22 12:31 Temperature Pulse Rate 59 L 59 L 62 Respiratory Rate Blood Pressure Pulse Oximetry 98 97 96 Oxygen Delivery Method 09/25/22 12:31 09/25/22 13:00 09/25/22 13:00 Temperature Pulse Rate 62 Respiratory Rate Blood Pressure 154/70 H 183/79 H Pulse Oximetry 98 Oxygen Delivery Method 09/25/22 13:18 09/25/22 13:18 09/25/22 13:30 Temperature Pulse Rate 60 60 Respiratory Rate Blood Pressure 173/72 H Pulse Oximetry 97 97 Oxygen Delivery Method 09/25/22 13:31 09/25/22 13:31 09/25/22 14:00 Temperature Pulse Rate 61 57 L Respiratory Rate Blood Pressure 169/73 H Pulse Oximetry 97 96 Oxygen Delivery Method 09/25/22 14:01 09/25/22 14:01 Temperature Pulse Rate 57 L Respiratory Rate Blood Pressure 158/67 H Pulse Oximetry 97 Oxygen Delivery Method Oxygen Delivery Method Room Air Narrative Exam Narrative: 5/5 strength in hip flexors, quadriceps, hamstrings, DF, PF, EHL on right. Pain w/ passive abduction, minimal discomfort w/ passive adduction. Sensation to light touch intact throughout RLE. Objective Labs Result Diagrams: 09/25/22 12:20 09/25/22 12:20 Labs: Laboratory Results - last 24 hr 09/25/22 09/25/22 09/25/22 12:20 12:20 12:30 WBC 7.4 RBC 4.60 Hgb 14.2 Hct 41.7 MCV 90.6 MCH 30.9 MCHC 34.1 RDW 12.7 Plt Count 130 L Neut % (Auto) Not Reportable Lymph % (Auto) Not Reportable [place] % (Auto) Not Reportable Eos % (Auto) Not Reportable Baso % (Auto) Not Reportable Lymph # (Auto) Not Reportable [place] # (Auto) Not Reportable Baso # (Auto) Not Reportable Total Counted 100 Seg Neutrophils % 77.0 H Lymphocytes % (Manual) 8.0 L Atypical Lymphs % 1.0 H Monocytes % (Manual) 14.0 H Neutrophils # (Manual) 5698 RBC Morphology Normal morphology PT 30.6 H INR 2.6 H APTT 37 H Sodium 139 Potassium 4.2 Chloride 106 Carbon Dioxide 24 BUN 34 H Creatinine 1.38 H Estimated GFR 51 L BUN/Creatinine Ratio 24.6 H Glucose 115 H Calcium 9.0 Total Bilirubin 1.3 AST 57 ALT 29 Alkaline Phosphatase 81 Total Creatine Kinase 1134 H CK-MB (CK-2) 2.69 H CK-MB (CK-2) Rel Index 0.2 L Troponin I < 0.012 Total Protein 7.2 Albumin 3.8 Globulin 3.4 Albumin/Globulin Ratio 1.1 SARS-CoV-2 (PCR) 09/25/22 12:30 WBC RBC Hgb Hct MCV MCH MCHC RDW Plt Count Neut % (Auto) Lymph % (Auto) [place] % (Auto) Eos % (Auto) Baso % (Auto) Lymph # (Auto) [place] # (Auto) Baso # (Auto) Total Counted Seg Neutrophils % Lymphocytes % (Manual) Atypical Lymphs % Monocytes % (Manual) Neutrophils # (Manual) RBC Morphology PT INR APTT Sodium Potassium Chloride Carbon Dioxide BUN Creatinine Estimated GFR BUN/Creatinine Ratio Glucose Calcium Total Bilirubin AST ALT Alkaline Phosphatase Total Creatine Kinase CK-MB (CK-2) CK-MB (CK-2) Rel Index Troponin I Total Protein Albumin Globulin Albumin/Globulin Ratio SARS-CoV-2 (PCR) Negative [facility] Medical History Aortic aneurysm Chalazion left lower eyelid Colon cancer screening Foreign body in auditory canal Hypertension Personal history of transient ischemic attack (TIA), and cerebral infarction without residual deficits Skin cancer screening Type 2 diabetes mellitus with diabetic nephropathy Surgical History History of knee replacement Knee joint replacement status Family History Father Stroke Social History household members: spouse Tobacco & Substance Use Smoking Status: Former smoker alcohol intake: current substance use type: does not use Assessment & Plan Assessment and plan (1) Acetabular fracture: Status: Acute Plan: D/w Dr Ferraro. No surgical indication at this time. Toe-touch weightbearing on RLE. WBAT on LLE. Follow up with MARITO or Dr Ferraro at [facility] in 2-3 weeks for repeat xrays. VTE prophylaxis per hospitalist service. Time Spent With Patient Critical Care time: I spent a total of [] minutes of critical care time on this patient's care today; this time is exclusive of procedural time.
--- NOTE | 2022-09-25 15:54 | PM.HP.1 ---
History of Present Illness History of Present Illness Date Patient Seen: 09/25/22 Time Patient Seen: 15:54 Chief complaint: GLF last night,right hip pain Narrative: Andrea Padilla is an 82yo M with PMH of prior left hip fracture, AAA, HTN, TIA and DM2 who presents with GLF and acetabular fracture of the right hip. Patient got up to use the restroom in the middle of the night, lost his balance and fell onto his right hip with immediate hip pain. He previously fractured his left hip in Jun 2020 after a fall at home which was found to be non-operable and he spent 2 months in a SNF. He reports minimal pain in the left hip currently while in bed. Denies CP, SOB, NV, abd pain or diarrhea. Patient History Medical History Aortic aneurysm Chalazion left lower eyelid Colon cancer screening Foreign body in auditory canal Hypertension Personal history of transient ischemic attack (TIA), and cerebral infarction without residual deficits Skin cancer screening Type 2 diabetes mellitus with diabetic nephropathy Surgical History History of knee replacement Knee joint replacement status Family & Social History Family History Father Stroke Social History: household members spouse Safety & Behavioral: Feels Safe in Current Yes Environment Been Physically Hurt or No Threatened By a Person Tobacco & Substance use: Smoking Status Former smoker alcohol intake current alcohol intake frequency 0-2 drinks per day Substance Use Type does not use Meds Home Medications and Allergies Home Medications Medication Instructions Recorded Confirmed Type Disabled Parking Permit ea ##1 07/22/17 09/24/22 Rx acetaminophen 500 mg tablet 500 mg PO Q6H PRN 03/18/21 09/24/22 History aliskiren 300 mg tablet (Tekturna) 300 mg PO DAILY 03/18/21 09/24/22 History cholecalciferol (vitamin D3) 50 50 mcg PO DAILY 03/18/21 09/24/22 History mcg (2,000 unit) capsule losartan 50 mg tablet 50 mg PO BID 03/18/21 09/24/22 History hydralazine 25 mg tablet 25 mg PO BID 12/16/21 09/24/22 History triamcinolone acetonide 0.1 % 1 applic topical BID #30 grams 02/03/22 09/24/22 Rx topical ointment simvastatin 40 mg tablet 40 mg PO QPM #90 tabs 03/20/22 09/24/22 Rx metformin 500 mg tablet 500 mg PO BID #60 tabs 04/16/22 09/24/22 Rx dapagliflozin 10 mg tablet 10 mg PO QAM #90 tabs 05/01/22 09/24/22 Rx ([facility]) blood-glucose meter (Blood Glucose #1 ea 05/04/22 09/24/22 Rx Monitoring kit) warfarin 5 mg tablet (Jantoven) 5 mg PO SEE INSTRUCTIONS #30 tabs 05/21/22 09/24/22 Rx semaglutide 0.25 mg or 0.5 mg (2 See Rx Instructions .Route 06/04/22 09/24/22 Rx mg/1.5 mL) subcutaneous pen .COMPLEX #1.5 mL injector ([employer]) terazosin 5 mg capsule See Rx Instructions .Route 06/04/22 09/24/22 Rx .COMPLEX #90 caps carvedilol 6.25 mg tablet See Rx Instructions .Route 07/29/22 09/24/22 Rx .COMPLEX #180 tabs blood sugar diagnostic (True #100 ea 09/17/22 09/24/22 Rx Metrix Glucose Test Strip) Allergies Allergy/AdvReac Type Severity Reaction Status Date / Time ciprofloxacin [From CIPRO] Allergy Severe Anaphylaxis Verified 09/25/22 12:11 benazepril [From LOTENSIN] Allergy Intermediate Anaphylaxis Verified 09/25/22 12:11 cephalexin [From KEFLEX] Allergy Intermediate Anaphylaxis Verified 09/25/22 12:11 Calcium Channel Blocking AdvReac Severe Anaphylaxis Verified 09/25/22 12:11 Agent Dilt Opioids - Morphine Analogues AdvReac Severe Hallucinati Verified 09/25/22 12:11 ng ALCIDES Inhibitors AdvReac Anaphylaxis Verified 09/25/22 12:11 Review of Systems Review of Systems Narrative: All other systems reviewed with the patient and are negative unless otherwise stated. Exam Vital Signs (past 8 hours): - 09/25/22 12:07 09/25/22 12:09 09/25/22 12:10 Temperature 97.9 F Pulse Rate 55 L Respiratory Rate 14 Blood Pressure 198/83 H 198/83 H Pulse Oximetry 99 99 Oxygen Delivery Method Room Air 09/25/22 12:10 09/25/22 12:30 09/25/22 12:31 Temperature Pulse Rate 59 L 59 L 62 Respiratory Rate Blood Pressure Pulse Oximetry 98 97 96 Oxygen Delivery Method 09/25/22 12:31 09/25/22 13:00 09/25/22 13:00 Temperature Pulse Rate 62 Respiratory Rate Blood Pressure 154/70 H 183/79 H Pulse Oximetry 98 Oxygen Delivery Method 09/25/22 13:18 09/25/22 13:18 09/25/22 13:30 Temperature Pulse Rate 60 60 Respiratory Rate Blood Pressure 173/72 H Pulse Oximetry 97 97 Oxygen Delivery Method 09/25/22 13:31 09/25/22 13:31 09/25/22 14:00 Temperature Pulse Rate 61 57 L Respiratory Rate Blood Pressure 169/73 H Pulse Oximetry 97 96 Oxygen Delivery Method 09/25/22 14:01 09/25/22 14:01 09/25/22 15:43 Temperature 97.9 F Pulse Rate 57 L 67 Respiratory Rate 16 Blood Pressure 158/67 H 157/72 H Pulse Oximetry 97 96 Oxygen Delivery Method Oxygen Delivery Method Room Air Narrative Exam Narrative: GEN: no acute distress, elderly and chatty HEENT: moist mucous membranes, PERRL NECK: trachea midline, no JVD CV: regular rate and rhythm, no murmurs PULM: clear bilaterally ABD: soft, nontender, nondistended, no organomegaly EXT: warm and well perfused with no edema, minimal pain over right hip with palpation SKIN: multiple ecchymoses on upper extremities, but no hematoma present over hip NEURO: awake, alert, oriented, no focal deficits Objective Labs Result Diagrams: 09/25/22 12:20 09/25/22 12:20 Labs: Laboratory Results - last 24 hr 09/25/22 09/25/22 09/25/22 12:20 12:20 12:30 WBC 7.4 RBC 4.60 Hgb 14.2 Hct 41.7 MCV 90.6 MCH 30.9 MCHC 34.1 RDW 12.7 Plt Count 130 L Neut % (Auto) Not Reportable Lymph % (Auto) Not Reportable [place] % (Auto) Not Reportable Eos % (Auto) Not Reportable Baso % (Auto) Not Reportable Lymph # (Auto) Not Reportable [place] # (Auto) Not Reportable Baso # (Auto) Not Reportable Total Counted 100 Seg Neutrophils % 77.0 H Lymphocytes % (Manual) 8.0 L Atypical Lymphs % 1.0 H Monocytes % (Manual) 14.0 H Neutrophils # (Manual) 5698 RBC Morphology Normal morphology PT 30.6 H INR 2.6 H APTT 37 H Sodium 139 Potassium 4.2 Chloride 106 Carbon Dioxide 24 BUN 34 H Creatinine 1.38 H Estimated GFR 51 L BUN/Creatinine Ratio 24.6 H Glucose 115 H Calcium 9.0 Total Bilirubin 1.3 AST 57 ALT 29 Alkaline Phosphatase 81 Total Creatine Kinase 1134 H CK-MB (CK-2) 2.69 H CK-MB (CK-2) Rel Index 0.2 L Troponin I < 0.012 Total Protein 7.2 Albumin 3.8 Globulin 3.4 Albumin/Globulin Ratio 1.1 SARS-CoV-2 (PCR) 09/25/22 12:30 WBC RBC Hgb Hct MCV MCH MCHC RDW Plt Count Neut % (Auto) Lymph % (Auto) [place] % (Auto) Eos % (Auto) Baso % (Auto) Lymph # (Auto) [place] # (Auto) Baso # (Auto) Total Counted Seg Neutrophils % Lymphocytes % (Manual) Atypical Lymphs % Monocytes % (Manual) Neutrophils # (Manual) RBC Morphology PT INR APTT Sodium Potassium Chloride Carbon Dioxide BUN Creatinine Estimated GFR BUN/Creatinine Ratio Glucose Calcium Total Bilirubin AST ALT Alkaline Phosphatase Total Creatine Kinase CK-MB (CK-2) CK-MB (CK-2) Rel Index Troponin I Total Protein Albumin Globulin Albumin/Globulin Ratio SARS-CoV-2 (PCR) Negative Assessment & Plan Assessment & Plan narrative: # GLF resulting in right acetabular fracture -fell while up to the bathroom in the middle of the night -Dr. Ferraro ortho consulted who recommended no surgical intervention, f/u with ortho clinic in 2-3 weeks - wants to avoid narcotics due to prior history of agitation with them -continue tylenol and lidocaine patch -PT/OT consult for rehab recs, patient would prefer PT -continue warfarin for DVT prophylaxis # DM2 -continue home farxiga, hold metformin -ACHS checks -A1c 5.2% # HTN -continue home aliskiren, coreg, losartan and hydralazine # Afib -continue warfarin -goal 2-2.5 per ortho so will hold a day and recheck INR as currently 2.6 Code status is full code. COVID negative. DVT prophylaxis with warfarin. Proxy is Aminta. I have reviewed home meds and used all available resources to reconcile the home meds. This patient will be admitted as [] and will require [] 2 midnights of hospital time to treat []. Time Spent With Patient Critical Care time: I spent a total of [] minutes of critical care time on this patient's care today; this time is exclusive of procedural time.
[2022-09-25] MEDS: LIDOCAINE PATCH 1 EACH ADH..PATCH TOP (16:45)
[2022-09-25] MEDS: HYDRALAZINE 25 MG TABLET PO (20:22)
[2022-09-25] MEDS: ATORVASTATIN 20 MG TABLET PO (20:22)
[2022-09-25] MEDS: LOSARTAN 50 MG TABLET PO (20:22)
[2022-09-25] MEDS: carvediloL 3.125 MG TABLET 6.25 MG PO (20:22)
[2022-09-25] MEDS: ACETAMINOPHEN 325 MG TABLET 650 MG PO (20:25)
[2022-09-26] VITALS (9 sets, daily range): BP systolic 142–169; BP diastolic 50–64; PULSE 55–65; RESP 16–18; TEMP 35.9–36.4; O2SAT 94–100
--- NOTE | 2022-09-26 03:34 | PC.NURSE ---
Pt is AxOx4, pleasant and cooperative. VSS, pt c/o general pain and received PRN Tylenol at bedtime with good effect. Nelson is draining clear and yellow urine output. Pt slept very well. Pt is able to turn himself in the bed. No other changes. Continue monitor.
[2022-09-26] MEDS: ACETAMINOPHEN 325 MG TABLET 650 MG PO ×2 (05:38→12:05)
[2022-09-26 06:46] LABS: INR 2.3 (0.9-1.3); Prothrombin Time 26.4 SECONDS (10.1-12.7)
[2022-09-26 06:52] LABS: BUN Creatinine Ratio 26.4 (6-22); Blood Urea Nitrogen 34 mg/dL (9-20); Carbon Dioxide 24 mmol/L (22-32); Chloride 105 mmol/L (98-107); Estimated Glomerular Filt Rate 56 mL/min (>60); Glucose 162 mg/dL (80-110); HEMOLYSIS < 15 (0-50); Hematocrit 40.1 % (41-53); Hemoglobin 13.7 g/dL (13.5-17.5); Mean Corpuscular HGB Conc 34.2 % (30-36); Mean Corpuscular Hemoglobin 30.8 PG (26-34); Mean Corpuscular Volume 90.2 fL (80-100); Platelet Count 126 X10^3/uL (150-400); Red Blood Cell Count 4.45 X10^6/uL (4.5-5.9); Red Cell Distribution Width 13.1 % (11.6-14.8); Sodium 139 mmol/L (137-145); White Blood Cell Count 6.3 X10^3/uL (4.5-11.0)
[2022-09-26 07:01] LABS: Add Manual Diff / Slide Review YES
[2022-09-26 07:20] LABS: Neutrophils Absolute Manual 4473 /uL (3000-5900); Total Cells Counted 100
[2022-09-26 07:22] LABS: RBC Morphology Normal Morphology
[2022-09-26 07:23] LABS: Platelet Estimate Decreased on smear
--- NOTE | 2022-09-26 08:37 | CM.DANOTE ---
Addendum entered by Maryanne Forrest R.N. 09/26/22 14:20: Spoke with pt this afternoon to discuss discharge planning. Aminta states that she would much rather the pt go to SNF because she wants him as independent as possible. I verbalized the importance of rehab per PT recommendations. Spouse agrees. Spoke with pt and pt is very concerned with going to a SNF. Pt states that he would rather go home with home health and be with his . Pt states, I need to be home to winterize the home and cars. DCP verbalized the importance of gaining strength to be able to do that. Pt states that he has had a horrible experience with SNF's and would feel more comfortable being at home to take care of his family. DCP verbalized importance of taking care of himself first. Pt wants to go home. DCP verbalized that a home health referral would be initiated and pt requested I talk with his and update. DCP attempted to contact spouse. Left message to call back. [facility] contacted and referral made. DCP to continue to follow case. Anticipate discharge home tomorrow 09/27. ADJ Addendum entered by Maryanne Forrest R.N. 09/26/22 13:31: DCP Cont: DCP faxed referral to [facility] as pt needs COVID waiver in order to qualify for SNF. ADJ Original Note: DCP Assessment: Payor confirmed: Medicare & BCBS PCP confirmed: Aretha Rdz MD Pt is a 82 y.o. M who was admitted to the AC unit following a GLF while walking to the restroom in his house. Pt admitted as inpatient for further management and evaluation of his symptoms and diagnosis. DCP met with pt this morning to discuss needs. Pt sitting up in bed eating breakfast. DCP introduced herself and role. Pt states he lives on [address] with his spouse, Aminta, in a multi level house. Pt states, you have to climb a mountain just to get around my backyard. Pt explained his previous experience when he fell a couple of years ago and states that he does not want to go to SNF if at all possible. Pt is requesting home health PT. Pt also expresses concerns about getting back home. DCP explained that [place] to him upon discharge. No other needs at this time. White board updated. Instructed to call. P: Pt to work with PT/OT this morning to determine further discharge needs. Depending on recommendations, pt to either discharge to SNF rehab or back home on [place] with Home Health. DCP to continue to follow. Maryanne Forrest RN/DCP Discharge Planning/Care Management Advanced directive, confirm from FAMILY Start: 09/25/22 17:36 Freq: Q24H Status: Active Protocol: Document 09/25/22 17:41 MS (Rec: 09/25/22 17:41 MS [id number]) Advance Directive, confirm on record Time 17:41 Person contacted patient Copy received No CM Discharge Assessment Start: 09/26/22 08:08 Freq: Status: Active Protocol: Document 09/26/22 08:36 AJ (Rec: 09/26/22 08:37 AJ [id number]) Discharge Planning Assessment Assigned Clinical Informatics Strategist Maryanne Forrest RN/CHANGP Advance Directives? Yes Advance Directives on File No History Provided By Patient Prior Living Arrangements House Household Members spouse Type of transporation used prior to Drives own vehicle admit Independent with ADL's Yes Is patient alert and oriented? Yes Discharge Plan Home Transportation Arrangement [place]ouse [place] Referrals Initiated Nursing Home,Home Health Additional Comment Awaiting PT/OT consult to determine needs Whiteboard Updated in Patient Room with Yes name and ext. # of Clinical Informatics Strategist Comment Instructed to call Review Status In Process Please Provide Date Initial DC 09/26/22 Assessment Was Performed Next Review Type Continued Stay Review
[2022-09-26] MEDS: LIDOCAINE PATCH 1 EACH ADH..PATCH TOP (09:21)
[2022-09-26] MEDS: carvediloL 3.125 MG TABLET 6.25 MG PO ×2 (09:22→20:35)
[2022-09-26] MEDS: TERAZOSIN 5 MG CAPSULE PO (09:22)
[2022-09-26] MEDS: HYDRALAZINE 25 MG TABLET PO ×2 (09:22→20:36)
[2022-09-26] MEDS: LOSARTAN 50 MG TABLET PO ×2 (09:23→20:35)
--- NOTE | 2022-09-26 10:12 | PT.IIE ---
Current Diagnoses Unspecified fracture of unspecified acetabulum, initial encounter for closed fracture (09/25/22) Surgical History (Last Reviewed 09/25/22 @ 20:08 by Halima Grant DO) History of knee replacement Knee joint replacement status Medical History (Last Reviewed 09/25/22 @ 20:08 by Halima Grant DO) Aortic aneurysm Chalazion left lower eyelid Colon cancer screening Foreign body in auditory canal Hypertension Personal history of transient ischemic attack (TIA), and cerebral infarction without residual deficits Skin cancer screening Type 2 diabetes mellitus with diabetic nephropathy Physical Therapy Inpatient Evaluation/Re-Eval M1 PT/OT-IP Prior Functional Status Start: 09/26/22 12:00 Freq: NEEDED Status: Active Protocol: Document 09/26/22 10:12 AB (Rec: 09/26/22 12:16 AB [email or web address]) Medical Review Prior Functional Status Medical History Reviewed Yes Communication able to make needs known Mobility and Gait pt stated that he is mostly modified indpendent without AD but uses a SPC when needed depending on where and what he is going to do. usually uses a SPC at night. pt stated that he has balance issues due to inner ear problems. Social History Household Members spouse Living Arrangements House Number of Floors (Floors) One Floor Number of Stairs To Enter/Railing? 2 platform steps to enter Home Environment High Toilet,Walk in Shower Home Equipment Straight Cane,Hand Held Shower ,Grab Bars Near Toilet,Grab Bars In Shower Additional Social History Comment pt stated that his told him that he can go home only is he is independent with walking and toileting M2 PT-IP Current Condition Start: 09/26/22 12:00 Freq: NEEDED Status: Active Protocol: Document 09/26/22 10:12 AB (Rec: 09/26/22 12:16 AB [email or web address]) Physical Therapy Current Condition Current Condition Evaluation Date 09/26/22 Treatment Diagnosis GLF; Racetabular fx; difficulty in walking Onset Date 09/25/22 M3 PT-IP Subjective Start: 09/26/22 12:00 Freq: NEEDED Status: Active Protocol: Document 09/26/22 10:12 AB (Rec: 09/26/22 12:16 AB [email or web address]) Subjective Physical Therapy Visit Type Type Initial Evaluation Visit Start Time 10:12 Visit Stop Time 10:55 Total Visit Minutes 38 Number of ORAL THERAPIST Visits 0 Physical Therapy Visit Comments Patient Comments agreeable to do PT Therapy Pain Assessment Pain When Pain Assessed At Rest Pain Present Pain Present Pain Reported Location right hip Intensity 2 Scale Used 3/10 with mobility Pain Behaviors Guarding Pain Management Techniques Distraction,Modification of Treatment,Re-positioning, Timing of Activity with Medications M4 PT-IP Mobility and Gait Start: 09/26/22 12:00 Freq: NEEDED Status: Active Protocol: Document 09/26/22 10:12 AB (Rec: 09/26/22 12:16 AB [email or web address]) PT-Bed Mobility Assessment Supine to Sit Supine to Sit Standby Assistance PT-Transfer Assessment Sit to and From Stand Sit to and from Stand Maximum Assistance,2 Person Assistance,Use of Upper Extremities Equipment Transfer Assistive Device Front Wheeled Walker Orthotic/Prosthetic Devices or Brace: No Transfers Transfer Destination Chair Transfer Technique Stand Step Pivot Transfer Ability Level of Assist Maximum Assistance,2 Person Assistance,Use of Upper Extremities Comments Mobility Comments BP in supine: 135/54. completed supine to sit SBA. able to sit on EOB SBA. pt is impulsive. cues for safety needed. c/o dizziness. BP: 121/55. pt seated for a few more minutes. BP checked: 106/ 48. nurse informed. BP checked again after ~ 2 min: 107/46. educated pt regarding TTWB on RLE and techniques for sit to stand and standing using FWW and maintaining weight bearing restriction. completed sit to stand max A x 2 and max cues. unable to maintain TTWB. PT opted to do NWB since pt is unable to maintain TTWB. pt continues to not be able to maintain NWB despite max A x 2 provided. completed step transfer to chair max A x 2 and max cues. completed sit to stand from chair max A x 2 and ambulated ~ 3 ft max A x 2 and max cues. pt agreed to sit on chair. call light and table placed within reach. BP at end of PT session: 97/42. Nurse is aware. informed pt regarding SNF recommendation but pt stated that he is worried of leaving his spouse by herself at home. Gait Assessment Gait Gait Assistance Required: Maximum Assistance,2 Person Assist Distance (Feet) 3 Able to Maintain Weight Bearing Status Yes During Gait Assistive Devices Assistive Device Gait Belt,Front Wheeled Walker Orthotic/Prosthetic Devices or Brace: No Gait Deviations General Gait Pattern Decreased Stride Length, Decreased Feet Clearance,Step- to Gait Factors Limiting Gait Function Factors Limiting Gait Function Decreased Activity Tolerance, Decreased Strength,Difficulty Following Directions,Limited Range of Motion,Pain,Poor Balance,Poor Safety Awareness PT-Balance Assessment Sitting Balance and Reactions Static Sitting Balance Ability Good Dynamic Sitting Balance Ability Good Standing Balance and Reactions Static Standing Balance Ability Poor Dynamic Standing Balance Ability Poor Device Used FWW M5 PT-IP Objective Assessments Start: 09/26/22 12:00 Freq: NEEDED Status: Active Protocol: Document 09/26/22 10:12 AB (Rec: 09/26/22 12:16 AB [email or web address]) Orientation Orientation/Cognition Level of Alertness Alert Orientation Name,Place,Situation Language Function Ability Hard of Hearing Safety Awareness Decreased Safety Awareness Gross Range of Motion Lower Extremity ROM Assessment Within Functional Limits Strength Lower Extremity Strength Assessment Right Impaired Hip 3-/5 Knee 4-/5 Coordination Assessment Gross Coordination Gross Coordination WNL Sensation Assessment Sensation Gross Sensation WNL Muscle Tone Muscle Tone WNL Yes M6 PT-IP Treatment Start: 09/26/22 12:00 Freq: NEEDED Status: Active Protocol: Document 09/26/22 10:12 AB (Rec: 09/26/22 12:16 AB [email or web address]) Physical Therapy Treatment Education Education Provided Weight Bearing Status,Safety M7 PT-IP Assessment and Plan Start: 09/26/22 12:00 Freq: NEEDED Status: Active Protocol: Document 09/26/22 10:12 AB (Rec: 09/26/22 12:16 AB [email or web address]) PT Summary Assessment and Plan Potential Rehabilitation Potential Fair Status of Condition at Evaluation Evolving Summary Impairments Pain,ROM,Strength,Balance, Coordination,Sensation,Tone, Cognition,Bed Mobility, Transfers,Gait,Activity Tolerance Assessment Summary pt requiring max A x 2 with mobility and unable to tolerate much activity with decrease in BP to 97/42. pt is impulsive and requires max cues with all tasks. pt with difficulty maintaining weight bearing restriction on RLE and needs max a x2. Pt will require SNF rehab at this time . will continue to assess progress. Goals Bed Mobility Goal Independent Transfer Goal Independent,Front Wheeled Walker Gait Goal Independent,Front Wheel Walker Gait Distance 25 Days to Meet Goals 38 Frequency of Treatment Frequency Of Treatment Once a Day Treatment Plan Physical Therapy Treatment Plan Bed Mobility Training,Transfer Training,Gait Training, Therapeutic Exercise,Balance Retraining,Discharge Planning, Hot or Cold Pack,Neuromuscular Re-ed,Coordination Retraining Weight Bearing Status Weight Bearing Status Touch Down Weight Bearing Allowed Weight Bearing Amount (enter % RLE TTWB or #) (%) Recommendations To Nursing Amount of Assist Needed 2 Person Assist Discharge Recommendations PT Discharge Recommendations SNF Rehab Transportation Needs at Discharge Wheelchair/Cabulance
--- NOTE | 2022-09-26 11:17 | PT.IPTN ---
Current Diagnoses Unspecified fracture of unspecified acetabulum, initial encounter for closed fracture (09/25/22) Physical Therapy Treatment Note M2 PT-IP Current Condition Start: 09/26/22 12:00 Freq: NEEDED Status: Active Protocol: Document 09/26/22 10:12 AB (Rec: 09/26/22 12:16 AB [id number]) Physical Therapy Current Condition Current Condition Evaluation Date 09/26/22 Treatment Diagnosis GLF; Racetabular fx; difficulty in walking Onset Date 09/25/22 M3 PT-IP Subjective Start: 09/26/22 12:00 Freq: NEEDED Status: Active Protocol: Document 09/26/22 10:12 AB (Rec: 09/26/22 12:16 AB [email or web address]) Subjective Physical Therapy Visit Type Type Initial Evaluation Visit Start Time 10:12 Visit Stop Time 10:55 Total Visit Minutes 38 Number of LAND RESOURCE SPECIALIST Visits 0 Physical Therapy Visit Comments Patient Comments agreeable to do PT Therapy Pain Assessment Pain When Pain Assessed At Rest Pain Present Pain Present Pain Reported Location right hip Intensity 2 Scale Used 3/10 with mobility Pain Behaviors Guarding Pain Management Techniques Distraction,Modification of Treatment,Re-positioning, Timing of Activity with Medications M4 PT-IP Mobility and Gait Start: 09/26/22 12:00 Freq: NEEDED Status: Active Protocol: Document 09/26/22 10:12 AB (Rec: 09/26/22 12:16 AB [email or web address]) PT-Bed Mobility Assessment Supine to Sit Supine to Sit Standby Assistance PT-Transfer Assessment Sit to and From Stand Sit to and from Stand Maximum Assistance,2 Person Assistance,Use of Upper Extremities Equipment Transfer Assistive Device Front Wheeled Walker Orthotic/Prosthetic Devices or Brace: No Transfers Transfer Destination Chair Transfer Technique Stand Step Pivot Transfer Ability Level of Assist Maximum Assistance,2 Person Assistance,Use of Upper Extremities Comments Mobility Comments BP in supine: 135/54. completed supine to sit SBA. able to sit on EOB SBA. pt is impulsive. cues for safety needed. c/o dizziness. BP: 121/55. pt seated for a few more minutes. BP checked: 106/ 48. nurse informed. BP checked again after ~ 2 min: 107/46. educated pt regarding TTWB on RLE and techniques for sit to stand and standing using FWW and maintaining weight bearing restriction. completed sit to stand max A x 2 and max cues. unable to maintain TTWB. PT opted to do NWB since pt is unable to maintain TTWB. pt continues to not be able to maintain NWB despite max A x 2 provided. completed step transfer to chair max A x 2 and max cues. completed sit to stand from chair max A x 2 and ambulated ~ 3 ft max A x 2 and max cues. pt agreed to sit on chair. call light and table placed within reach. BP at end of PT session: 97/42. Nurse is aware. informed pt regarding SNF recommendation but pt stated that he is worried of leaving his spouse by herself at home. Gait Assessment Gait Gait Assistance Required: Maximum Assistance,2 Person Assist Distance (Feet) 3 Able to Maintain Weight Bearing Status Yes During Gait Assistive Devices Assistive Device Gait Belt,Front Wheeled Walker Orthotic/Prosthetic Devices or Brace: No Gait Deviations General Gait Pattern Decreased Stride Length, Decreased Feet Clearance,Step- to Gait Factors Limiting Gait Function Factors Limiting Gait Function Decreased Activity Tolerance, Decreased Strength,Difficulty Following Directions,Limited Range of Motion,Pain,Poor Balance,Poor Safety Awareness PT-Balance Assessment Sitting Balance and Reactions Static Sitting Balance Ability Good Dynamic Sitting Balance Ability Good Standing Balance and Reactions Static Standing Balance Ability Poor Dynamic Standing Balance Ability Poor Device Used FWW M5 PT-IP Objective Assessments Start: 09/26/22 12:00 Freq: NEEDED Status: Active Protocol: Document 09/26/22 10:12 AB (Rec: 09/26/22 12:16 AB [email or web address]) Orientation Orientation/Cognition Level of Alertness Alert Orientation Name,Place,Situation Language Function Ability Hard of Hearing Safety Awareness Decreased Safety Awareness Gross Range of Motion Lower Extremity ROM Assessment Within Functional Limits Strength Lower Extremity Strength Assessment Right Impaired Hip 3-/5 Knee 4-/5 Coordination Assessment Gross Coordination Gross Coordination WNL Sensation Assessment Sensation Gross Sensation WNL Muscle Tone Muscle Tone WNL Yes M6 PT-IP Treatment Start: 09/26/22 12:00 Freq: NEEDED Status: Active Protocol: Document 09/26/22 10:12 AB (Rec: 09/26/22 12:16 AB [email or web address]) Physical Therapy Treatment Education Education Provided Weight Bearing Status,Safety M7 PT-IP Assessment and Plan Start: 09/26/22 12:00 Freq: NEEDED Status: Active Protocol: Document 09/26/22 10:12 AB (Rec: 09/26/22 12:16 AB [email or web address]) PT Summary Assessment and Plan Potential Rehabilitation Potential Fair Status of Condition at Evaluation Evolving Summary Impairments Pain,ROM,Strength,Balance, Coordination,Sensation,Tone, Cognition,Bed Mobility, Transfers,Gait,Activity Tolerance Assessment Summary pt requiring max A x 2 with mobility and unable to tolerate much activity with decrease in BP to 97/42. pt is impulsive and requires max cues with all tasks. pt with difficulty maintaining weight bearing restriction on RLE and needs max a x2. Pt will require SNF rehab at this time . will continue to assess progress. Goals Bed Mobility Goal Independent Transfer Goal Independent,Front Wheeled Walker Gait Goal Independent,Front Wheel Walker Gait Distance 25 Days to Meet Goals 38 Frequency of Treatment Frequency Of Treatment Once a Day Treatment Plan Physical Therapy Treatment Plan Bed Mobility Training,Transfer Training,Gait Training, Therapeutic Exercise,Balance Retraining,Discharge Planning, Hot or Cold Pack,Neuromuscular Re-ed,Coordination Retraining Weight Bearing Status Weight Bearing Status Touch Down Weight Bearing Allowed Weight Bearing Amount (enter % RLE TTWB or #) (%) Recommendations To Nursing Amount of Assist Needed 2 Person Assist Discharge Recommendations PT Discharge Recommendations SNF Rehab Transportation Needs at Discharge Wheelchair/Cabulance
--- NOTE | 2022-09-26 15:39 | OT.IP.EVAL ---
Current Diagnoses Unspecified fracture of unspecified acetabulum, initial encounter for closed fracture (09/25/22) Past Medical History (Last Reviewed 09/25/22 @ 20:08 by Halima Grant DO) Aortic aneurysm Chalazion left lower eyelid Colon cancer screening Foreign body in auditory canal Hypertension Personal history of transient ischemic attack (TIA), and cerebral infarction without residual deficits Skin cancer screening Type 2 diabetes mellitus with diabetic nephropathy Surgical History (Last Reviewed 09/25/22 @ 20:08 by Halima Grant DO) History of knee replacement Knee joint replacement status Occupational Therapy Inpatient Evaluation/Re-Eval M1 PT/OT-IP Prior Functional Status Start: 09/26/22 12:00 Freq: NEEDED Status: Active Protocol: Document 09/26/22 15:53 CGR (Rec: 09/26/22 16:06 CGR [id number]) Medical Review Prior Functional Status Medical History Reviewed Yes Communication able to make needs known Mobility and Gait pt stated that he is mostly modified indpendent without AD but uses a SPC when needed depending on where and what he is going to do. usually uses a SPC at night. pt stated that he has balance issues due to inner ear problems. Activities of Daily Living and IADL's Pt states he is IND in all ADLS Social History Household Members spouse Living Arrangements House Number of Floors (Floors) One Floor Number of Stairs To Enter/Railing? 2 platform steps to enter. Pt later shared with Poonam that he has a ramp to enter the home from the back. Home Environment High Toilet,Walk in Shower, Ramp Home Equipment Straight Cane,Hand Held Shower ,Grab Bars Near Toilet,Grab Bars In Shower Employment Status Retired Additional Social History Comment pt stated that his told him that he can go home only is he is independent with walking and toileting M2 OT-IP Current Condition Start: 09/26/22 15:53 Freq: Status: Active Protocol: Document 09/26/22 15:53 CGR (Rec: 09/26/22 16:06 CGR [id number]) Occupational Therapy Current Condition Current Condition Evaluation Date 09/26/22 Treatment Diagnosis R acetabular fx, non operative Diagnosis Onset Date 09/25/22 Weight Bearing Status Weight Bearing Status Touch Down Weight Bearing M3 OT- IP Subjective and Pain Start: 09/26/22 15:53 Freq: Status: Active Protocol: Document 09/26/22 15:53 CGR (Rec: 09/26/22 16:06 CGR [id number]) OT- Subjective Occupational Therapy Visit Type Type Initial Evaluation Visit Start Time 14:59 Visit Stop Time 15:39 Total Visit Minutes 40 Notes Pt agreeable to getting up to chair. OT Pain Assessment Pain When Pain Assessed At Rest Pain Present Pain Present Denied Pain M4 OT- IP ADL's Start: 09/26/22 15:53 Freq: Status: Active Protocol: Document 09/26/22 15:53 CGR (Rec: 09/26/22 16:06 CGR [id number]) OT [id number] Comments OT Self-Feeding Comments not meal time OT ADL-Grooming Comments OT Grooming Comments not performed OT ADL-Oral Care Comments Oral Care Comments not performed OT ADL-Dressing General Eval Lower Body Dressing Ability Total Assistance Areas Needing Assistance Socks OT ADL-Toileting Comments OT Toileting Comments not performed OT ADL-Bathing Comments OT Bathing Comments not performed M5 OT- IP IADL's Start: 09/26/22 15:53 Freq: Status: Active Protocol: Document 09/26/22 15:53 CGR (Rec: 09/26/22 16:06 CGR [id number]) OT-Instrumental Activities of Daily Living Deficits IADL Deficits Identified Deficits Home Safety Awareness Awareness of Need for Assistance at Home Decreased Awareness Ability to Problem Solve Emergency Unable to Problem Solve Situations Medication Management Medication Management Caregiver Administers Money Management Money Management Caregiver Provides Assistance Meal Preparation Meal Preparation Caregiver Provides Assist County Nurse County Nurse Comments Concerns regarding pts ability to perform Driving Driving Comments Concerns regarding pts ability to perform M6 OT- IP Functional Cognition Start: 09/26/22 15:53 Freq: Status: Active Protocol: Document 09/26/22 15:53 CGR (Rec: 09/26/22 16:06 CGR [id number]) Cognitive Factors Limiting Selfcare Function Cognitive Ability Level of Alertness Alert Patient Orientation Name,Age,Birthday,Month,Date, Year,Day of Week,Place, Situation Attention Span Ability Unable to Focus,Unable to Sustain Attention Ability to Follow Commands Able to Follow One Step Commands with Increased Time, Able to Follow One Step Commands with Repetition Cognitive Comments Cognitive Assessment Comments Pt needs to be sternly redirected throughout session. Pt has difficulty responding to questions directly. OT- Vision and Hearing OT- Hearing Assessment OT- Hearing Assessment Hearing Impaired OT- Vision Assessment Visual Acuity Glasses All The Time Visual Attentiveness WFL Occular Pursuits WFL M7 OT- IP Mobility and Balance Start: 09/26/22 15:53 Freq: Status: Active Protocol: Document 09/26/22 15:53 CGR (Rec: 09/26/22 16:06 CGR [id number]) OT- Bed Mobility Assessment Supine to Sit Supine to Sit Assist Standby Assistance Scooting Scooting to Edge of Bed Standby Assistance OT-Transfer Assessment Sit to and From Stand Sit to and from Stand Maximum Assistance,1 Person Assistance Transfers Transfer Ability Maximum Assistance,1 Person Assistance Technique Transfer Destination Bed,Chair Transfer Technique Stand Step Pivot Devices Transfer Assistive Devices Gait Belt,Front Wheeled Walker Comments Mobility Comments Pt is unable to perform transfer without putting greater than toe touch weight through his R foot. OT- Gait Assessment Comments Gait Ability Comments unable to safely perform OT- Balance Assessment Sitting Balance and Reactions Dynamic Sitting Balance Ability Good M8 OT- IP Objective Assessments Start: 09/26/22 15:53 Freq: Status: Active Protocol: Document 09/26/22 15:53 CGR (Rec: 09/26/22 16:06 CGR [id number]) OT Gross Range of Motion Upper Extremity Range of Motion Assessment Within Functional Limits OT Strength Upper Extremity Strength Assessment Bilaterally Impaired Comments Strength Comments 4-/5 throughout OT- Coordination Assessment Upper Extremity Finger to Nose Test Within Functional Limits Finger Tapping Test Within Functional Limits OT-Muscle Tone Assessment Muscle Tone WNL Yes OT Sensation Assessment Edema Edema Absent M9 OT- IP Assessment and Plan Start: 09/26/22 15:53 Freq: Status: Active Protocol: Document 09/26/22 15:53 CGR (Rec: 09/26/22 16:06 CGR [id number]) OT Summary Assessment and Plan Potential Rehabilitation Potential Good Analytic Complexity at Evaluation Moderate Summary OT Impairments Strength,Balance,Functional Cognition,Functional Mobility, Dressing,Toileting,Bathing, Toilet Transfers,Shower Transfers,Activity Tolerance Progress Towards Goals Slow Progress due to Activity Tolerance,Slow Progress due to Cognition Assessment Summary Pt presents as a moderate complexity evaluation s/p admit for fall with R acetabular fx. Pt is TTWB to the RLE. 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 Pt needed max a for understanding home safety and that he would not be safe discharging home. Pt will need SNF. Pt states agreement to SNF requesting that he go to a place that will do therapy with him regularly and will share with him the goals he needs to achieve before he can go home. This flex o writer operator assured him that any SNF would be able to do those things. This was stated to this flex o writer operator and to the pt's nurse, Javier. Notified CM that pt is agreeable. Goals Self-Feeding Goal Independent Grooming Goal Independent Dressing Goal Independent Toileting Goal Independent Bathing Goal Independent Toilet Transfer Goal Independent Shower Transfer Goal Independent OT-Other Goals Pt will increase UE strength to assist with maintaining his TTWB with use of a walker. Days to Meet Goals 30 Frequency of Treatment Frequency Of Treatment Once a Day Treatment Plan OT Treatment Plan ADL Training,Functional Cognition Training,Functional Mobility,Therapeutic Exercises ,Patient/Family Education, Discharge Planning Other Treatment Recommendations and Next UE therex, ADLs seated Treatment Focus Discharge Recommendations OT Discharge Recommendations SNF Rehab Transportation Needs at Discharge Wheelchair/Cabulance
--- NOTE | 2022-09-26 16:21 | PM.PN.1 ---
Subjective Subjective Date Patient Seen: 09/26/22 Time Patient Seen: 08:00 Interval history: He does have right sided pain. He tried to work with PT and he is wanting to go home and is very strongly against discharge to SNF. Per PT due to his poor mobility and need for 2 person assist strong recommendation for SNF which has been relayed to him. Exam Vital Signs (past 8 hours): - 09/26/22 08:37 09/26/22 09:22 09/26/22 09:22 Temperature 97.2 F L Pulse Rate 59 L 59 L 59 L Respiratory Rate 16 Blood Pressure 165/60 H 169/60 H 169/60 H Pulse Oximetry 100 09/26/22 09:23 09/26/22 13:09 Temperature 97.5 F L Pulse Rate 59 L 64 Respiratory Rate 16 Blood Pressure 169/60 H 142/58 H Pulse Oximetry Oxygen Delivery Method Room Air Narrative Exam Narrative: GEN: no acute distress CV: regular rate and rhythm, no murmurs PULM: clear bilaterally ABD: soft, nontender, nondistended, no organomegaly EXT: warm and well perfused with no edema, minimal pain over right hip with palpation SKIN: multiple ecchymoses on upper extremities, but no hematoma present over hip NEURO: awake, alert, oriented, no focal deficits Objective Labs Result Diagrams: 09/26/22 06:14 09/26/22 06:14 Labs: Laboratory Results - last 24 hr 09/26/22 09/26/22 09/26/22 06:14 06:14 06:14 WBC 6.3 RBC 4.45 L Hgb 13.7 Hct 40.1 L MCV 90.2 MCH 30.8 MCHC 34.2 RDW 13.1 Plt Count 126 L Neut % (Auto) Not Reportable Lymph % (Auto) Not Reportable [place] % (Auto) Not Reportable Eos % (Auto) Not Reportable Baso % (Auto) Not Reportable Lymph # (Auto) Not Reportable [place] # (Auto) Not Reportable Baso # (Auto) Not Reportable Total Counted 100 Seg Neutrophils % 71.0 H Lymphocytes % (Manual) 9.0 L Monocytes % (Manual) 17.0 H Eosinophils % (Manual) 3.0 Neutrophils # (Manual) 4473 Platelet Estimate Decreased on smear RBC Morphology Normal morphology PT 26.4 H INR 2.3 H Sodium 139 Potassium 4.0 Chloride 105 Carbon Dioxide 24 BUN 34 H Creatinine 1.29 H Estimated GFR 56 L BUN/Creatinine Ratio 26.4 H Glucose 162 H Calcium 9.0 PFSH Medical History Aortic aneurysm Chalazion left lower eyelid Colon cancer screening Foreign body in auditory canal Hypertension Personal history of transient ischemic attack (TIA), and cerebral infarction without residual deficits Skin cancer screening Type 2 diabetes mellitus with diabetic nephropathy Surgical History History of knee replacement Knee joint replacement status Family History Father Stroke Social History household members: spouse Smoking Status: Former smoker alcohol intake: current substance use type: does not use Assessment & Plan Assessment & Plan narrative: # GLF resulting in right acetabular fracture -fell while up to the bathroom in the middle of the night -Dr. Ferraro ortho consulted who recommended no surgical intervention, f/u with ortho clinic in 2-3 weeks - wants to avoid narcotics due to prior history of agitation with them -continue tylenol and lidocaine patch -PT/OT consult for rehab recs, patient would prefer PT -continue warfarin for DVT prophylaxis # DM2 -continue home farxiga, hold metformin -ACHS checks -A1c 5.2% # HTN -continue home aliskiren, coreg, losartan and hydralazine # Afib -continue warfarin -goal 2-2.5 per ortho so will hold a day and recheck INR as currently 2.6 Dispo: likely discharge tomorrow after further PT eval and with additional pain control, patient strongly against dc to SNF and wants to dc home. It has been discussed that due to his poor mobility and requiring multi person assist that he is strongly recommended to SNF and that he may have further injuries if he chooses to dc home Time Spent With Patient Critical Care time: I spent a total of [] minutes of critical care time on this patient's care today; this time is exclusive of procedural time. Quality VTE Deep Vein Thrombosis/Pulmonary Embolism Present on Admission: No
[2022-09-26] MEDS: WARFARIN 5 MG TABLET PO (18:29)
[2022-09-26] MEDS: ATORVASTATIN 20 MG TABLET PO (20:35)
[2022-09-27] VITALS (16 sets, daily range): BP systolic 62–176; BP diastolic 31–65; PULSE 57–66; RESP 14–19; TEMP 36–36.3; O2SAT 95–98
--- NOTE | 2022-09-27 04:49 | PC.NURSE ---
Pt is AxOx4, needs 1-2 person assistance and cooperative. VSS, pt denies pain. Nelson is draining clear and yellow urine output. Pt slept well. No other changes.
[2022-09-27 05:31] LABS: INR 1.8 (0.9-1.3); Prothrombin Time 20.8 SECONDS (10.1-12.7)
[2022-09-27] MEDS: HYDRALAZINE 25 MG TABLET PO (09:29)
[2022-09-27] MEDS: carvediloL 3.125 MG TABLET 6.25 MG PO ×2 (09:29→21:27)
[2022-09-27] MEDS: LIDOCAINE PATCH 1 EACH ADH..PATCH TOP (09:30)
[2022-09-27] MEDS: TERAZOSIN 5 MG CAPSULE PO (09:31)
[2022-09-27] MEDS: LOSARTAN 50 MG TABLET PO (09:31)
[2022-09-27] MEDS: polyethylene glycoL 3350 17 GM POWD.PACK PO (09:59)
--- NOTE | 2022-09-27 10:36 | CM.DPC ---
Addendum entered by Maryanne Forrest R.N. 09/27/22 11:04: DCP spoke with Kayy and she confirmed that she is able to take the patient tomorrow. Kayy is working on time with [facility]. Kayy did verbalize that if the patient is being discharged with the medication Ozempic, that it would need to be changed to a regular sliding scale insulin. This was verbalized to the RN and she is aware. MD is aware that we have a facility for tomorrow. Pt was made aware and is agreeable to the plan. DCP contacted spouse and she is aware and agrees with the plan. Maryanne Forrest RN/GREYSON Original Note: DCP Cont: Per RN, pt is agreeable to SNF. DCP contacted [facility] and per Kayy, she could accept him just needs to work out a couple of medications. DCP awaiting final decision. DCP also faxed referral to [facility] for backup plan. DCP left message for [facility] and [facility]. Maryanne Forrest RN/GREYSON
--- NOTE | 2022-09-27 10:39 | PT.IPTN ---
Current Diagnoses Unspecified fracture of unspecified acetabulum, initial encounter for closed fracture (09/25/22) Physical Therapy Treatment Note M2 PT-IP Current Condition Start: 09/26/22 12:00 Freq: NEEDED Status: Active Protocol: Document 09/26/22 10:12 AB (Rec: 09/26/22 12:16 AB [id number]) Physical Therapy Current Condition Current Condition Evaluation Date 09/26/22 Treatment Diagnosis GLF; Racetabular fx; difficulty in walking Onset Date 09/25/22 M3 PT-IP Subjective Start: 09/26/22 12:00 Freq: NEEDED Status: Active Protocol: Document 09/27/22 10:19 RBD (Rec: 09/27/22 11:43 RBD [id number]) Subjective Physical Therapy Visit Type Type Treatment Note Visit Start Time 10:19 Visit Stop Time 10:39 Total Visit Minutes 20 Number of RETROFIT INSTALLER Visits 1 Physical Therapy Visit Comments Patient Comments agreeable to do PT M4 PT-IP Mobility and Gait Start: 09/26/22 12:00 Freq: NEEDED Status: Active Protocol: Document 09/27/22 10:19 RBD (Rec: 09/27/22 11:43 RBD [id number]) PT-Bed Mobility Assessment Supine to Sit Supine to Sit Standby Assistance Scooting Scooting to Edge of Bed Standby Assistance PT-Transfer Assessment Sit to and From Stand Sit to and from Stand Moderate Assistance,2 Person Assistance Equipment Transfer Assistive Device Front Wheeled Walker Orthotic/Prosthetic Devices or Brace: No Transfers Transfer Destination Chair,Bedside Commode Transfer Technique Stand Step Pivot Transfer Ability Level of Assist Moderate Assistance,2 Person Assistance Comments Mobility Comments Pt in bed when RETROFIT INSTALLER arrived w/ RN. He was agreeable to tranfer to [facility]. revied his WB precations. Denied dizzness. SBA for supine to sitting EOB with HOB elevated and use of bed rails. Mod A x 2 for sit to stand. Stand step pivot to BSC w/ Mod x 2 assist and verbal cueing for WB. Pt had BM. Mod A x 1 and verbal cueing sit to stand from [facility]. Chair roled behind Pt and stand to sit Mod A. Pt verbilized dizzyness hwne in chair. BP 62/39. Nurse informed and Pt left with nurse in chair. Gait Assessment Gait Gait Assistance Required: Moderate Assistance,2 Person Assist Distance (Feet) 3 Able to Maintain Weight Bearing Status Yes During Gait Assistive Devices Assistive Device Gait Belt,Front Wheeled Walker Orthotic/Prosthetic Devices or Brace: No Gait Deviations General Gait Pattern Decreased Stride Length, Decreased Feet Clearance,Step- to Gait Factors Limiting Gait Function Factors Limiting Gait Function Decreased Activity Tolerance, Decreased Strength,Difficulty Following Directions,Limited Range of Motion,Pain,Poor Balance,Poor Safety Awareness PT-Balance Assessment Sitting Balance and Reactions Static Sitting Balance Ability Good Dynamic Sitting Balance Ability Good Standing Balance and Reactions Static Standing Balance Ability Fair Dynamic Standing Balance Ability Poor Device Used FWW M5 PT-IP Objective Assessments Start: 09/26/22 12:00 Freq: NEEDED Status: Active Protocol: Document 09/26/22 10:12 AB (Rec: 09/26/22 12:16 AB [id number]) Orientation Orientation/Cognition Level of Alertness Alert Orientation Name,Place,Situation Language Function Ability Hard of Hearing Safety Awareness Decreased Safety Awareness Gross Range of Motion Lower Extremity ROM Assessment Within Functional Limits Strength Lower Extremity Strength Assessment Right Impaired Hip 3-/5 Knee 4-/5 Coordination Assessment Gross Coordination Gross Coordination WNL Sensation Assessment Sensation Gross Sensation WNL Muscle Tone Muscle Tone WNL Yes M6 PT-IP Treatment Start: 09/26/22 12:00 Freq: NEEDED Status: Active Protocol: Document 09/27/22 10:19 RBD (Rec: 09/27/22 11:43 RBD [id number]) Physical Therapy Treatment Education Education Provided Weight Bearing Status,Safety M7 PT-IP Assessment and Plan Start: 09/26/22 12:00 Freq: NEEDED Status: Active Protocol: Document 09/27/22 10:19 RBD (Rec: 09/27/22 11:43 RBD [id number]) PT Summary Assessment and Plan Potential Rehabilitation Potential Fair Status of Condition at Evaluation Evolving Summary Impairments Pain,ROM,Strength,Balance, Coordination,Sensation,Tone, Cognition,Bed Mobility, Transfers,Gait,Activity Tolerance Assessment Summary Pt required mod A X 2 for most transfers. He is impulsive and required verbal cueing throughout treament baout WB restiction. Pt requires snf rehab for safe transferans, WB restictions, ans low tolerance to activity. Goals Bed Mobility Goal Independent Transfer Goal Independent,Front Wheeled Walker Gait Goal Independent,Front Wheel Walker Gait Distance 25 Days to Meet Goals 38 Frequency of Treatment Frequency Of Treatment Once a Day Treatment Plan Physical Therapy Treatment Plan Bed Mobility Training,Transfer Training,Gait Training, Therapeutic Exercise,Balance Retraining,Discharge Planning, Hot or Cold Pack,Neuromuscular Re-ed,Coordination Retraining Weight Bearing Status Weight Bearing Status Touch Down Weight Bearing Allowed Weight Bearing Amount (enter % RLE TTWB or #) (%) Recommendations To Nursing Amount of Assist Needed 2 Person Assist Discharge Recommendations PT Discharge Recommendations SNF Rehab Transportation Needs at Discharge Wheelchair/Cabulance
[2022-09-27] MEDS: SODIUM CHLORIDE 0.9% 1,000 ML 1000 ML IV (10:40)
[2022-09-27 11:26] LABS: Add Manual Diff / Slide Review NO; Basophils Absolute Auto 0 /uL (0-100); Basophils Percent Auto 0.3 % (0-2); Eosinophils Absolute Auto 200 /uL (0-450); Hematocrit 37.7 % (41-53); Hemoglobin 12.8 g/dL (13.5-17.5); Lymphocytes Absolute Auto 900 /uL (1100-4500); Lymphocytes Percent Auto 12.3 % (25-40); Mean Corpuscular HGB Conc 33.9 % (30-36); Mean Corpuscular Hemoglobin 30.7 PG (26-34); Mean Corpuscular Volume 90.5 fL (80-100); Monocytes Absolute Auto 1100 /uL (0-900); Monocytes Percent Auto 15.1 % (3-14); Neutrophils Absolute Auto 5100 /uL (1500-7000); Neutrophils Percent Auto 69.3 % (50-75); Platelet Count 125 X10^3/uL (150-400); Red Blood Cell Count 4.17 X10^6/uL (4.5-5.9); Red Cell Distribution Width 13.4 % (11.6-14.8); White Blood Cell Count 7.3 X10^3/uL (4.5-11.0)
--- NOTE | 2022-09-27 11:26 | PM.PN.1 ---
Subjective Subjective Date Patient Seen: 09/27/22 Time Patient Seen: 08:00 Interval history: Today he had no complaints initially. Later in the morning called to room for brief hypotension and dizziness. This occurred after a bowel movement and was possibly vasovagal as he improved quickly with laying down and IV fluid. Exam Vital Signs (past 8 hours): - 09/27/22 08:00 09/27/22 10:35 09/27/22 10:37 Temperature 97.3 F L Pulse Rate 66 Respiratory Rate 18 Blood Pressure 176/65 H 62/39 L 68/32 L Pulse Oximetry 98 Oxygen Flow Rate 0 09/27/22 10:38 09/27/22 10:39 09/27/22 10:40 Temperature Pulse Rate Respiratory Rate Blood Pressure 69/31 L 70/38 L 73/42 L Pulse Oximetry Oxygen Flow Rate 09/27/22 10:47 09/27/22 10:48 09/27/22 10:51 Temperature Pulse Rate Respiratory Rate Blood Pressure 62/38 L 65/37 L 89/49 L Pulse Oximetry Oxygen Flow Rate 09/27/22 10:56 09/27/22 11:05 Temperature Pulse Rate Respiratory Rate Blood Pressure 97/59 L 104/65 Pulse Oximetry Oxygen Flow Rate Oxygen Delivery Method Room Air Oxygen Flow Rate 0 Narrative Exam Narrative: GEN: no acute distress CV: regular rate and rhythm, no murmurs PULM: clear bilaterally ABD: soft, nontender, nondistended, no organomegaly EXT: warm and well perfused with no edema, minimal pain over right hip with palpation SKIN: multiple ecchymoses on upper extremities, but no hematoma present over hip NEURO: awake, alert, oriented, no focal deficits Objective Labs Result Diagrams: 09/26/22 06:14 09/26/22 06:14 Labs: Laboratory Results - last 24 hr 09/27/22 05:16 PT 20.8 H D INR 1.8 H PFSH Medical History Aortic aneurysm Chalazion left lower eyelid Colon cancer screening Foreign body in auditory canal Hypertension Personal history of transient ischemic attack (TIA), and cerebral infarction without residual deficits Skin cancer screening Type 2 diabetes mellitus with diabetic nephropathy Surgical History History of knee replacement Knee joint replacement status Family History Father Stroke Social History household members: spouse Smoking Status: Former smoker alcohol intake: current substance use type: does not use Assessment & Plan Assessment & Plan narrative: # GLF resulting in right acetabular fracture -fell while up to the bathroom in the middle of the night -Dr. Ferraro ortho consulted who recommended no surgical intervention, f/u with ortho clinic in 2-3 weeks - wants to avoid narcotics due to prior history of agitation with them -continue tylenol and lidocaine patch -PT/OT consult for rehab recs, patient would prefer PT -continue warfarin for DVT prophylaxis # DM2 -continue home farxiga, hold metformin -ACHS checks -A1c 5.2% # HTN -continue home aliskiren, coreg, losartan and hydralazine # Afib -continue warfarin -goal 2-2.5 per ortho so will hold a day and recheck INR as currently 2.6 Dispo: likely discharge tomorrow to SNF Time Spent With Patient Critical Care time: I spent a total of [] minutes of critical care time on this patient's care today; this time is exclusive of procedural time. Quality VTE Deep Vein Thrombosis/Pulmonary Embolism Present on Admission: No
[2022-09-27 11:38] LABS: BUN Creatinine Ratio 24.8 (6-22); Blood Urea Nitrogen 33 mg/dL (9-20); Calcium 8.6 mg/dL (8.4-10.2); Carbon Dioxide 25 mmol/L (22-32); Chloride 104 mmol/L (98-107); Estimated Glomerular Filt Rate 54 mL/min (>60); Glucose 168 mg/dL (80-110); HEMOLYSIS < 15 (0-50); Potassium 4.1 mmol/L (3.4-5.1); Sodium 138 mmol/L (137-145)
--- NOTE | 2022-09-27 11:53 | PC.NURSE ---
Event Note: At approx. 1040 Pt had been on the bedside commode with CARGO INSPECTOR and bearing down to have a BM. Pt was then reportedly transfered to bedside chair and reported a very bad headache. CARGO INSPECTOR reported to this nurse a BP of a systolic in the low 60's. Upon assessment pt was found in bedside chair with his hand on his head but conversive. He reported vision changes, diaphoresis, and headache. Repeat BP's found systolics 60's-70's. Pts color remained pale but not cyanotic. Dr. Vidal was called to the bedside and 1L NS Bolus ordered and initiated. Pt was placed in trendelenburg position. Bedside CBG done with a post prandial of 177. Pt remained alert and oriented. Pts BP came up to systolic of 104 and symptoms resolved.
[2022-09-27 14:19] LABS: COVID19 -Nasal RAPID Negative (Negative)
[2022-09-27] MEDS: WARFARIN 5 MG TABLET PO (19:46)
[2022-09-27] MEDS: ATORVASTATIN 20 MG TABLET PO (21:27)
[2022-09-28 05:00] VITALS: BP 181/61; PULSE 59; RESP 18; TEMP 36.1; O2SAT 96
[2022-09-28 05:26] LABS: INR 1.9 (0.9-1.3); Prothrombin Time 21.4 SECONDS (10.1-12.7)
[2022-09-28 05:50] VITALS: BP 179/64; PULSE 53
--- NOTE | 2022-09-28 09:08 | CM.DPC ---
DCP Cont: Patient is supposed to discharge to [facility] today. Asked about sliding scale, hospitalist indicated, they usually don't do sliding scales. Patient is on an insulin pen. Asked nursing if pharmacy has an algorhythum for insulin, and may send it upstairs as reference. PASSR is done, completed COVID waiver, will have hospitalist sign. P: Patient is to be going to [facility] today. Spoke to Adriane at [facility] and confirmed. Stephanie Davies RN/Security Operations Manager
[2022-09-28] MEDS: LOSARTAN 50 MG TABLET PO (09:16)
[2022-09-28] MEDS: carvediloL 3.125 MG TABLET 6.25 MG PO (09:16)
[2022-09-28] MEDS: LIDOCAINE PATCH 1 EACH ADH..PATCH TOP (09:17)
[2022-09-28] MEDS: ACETAMINOPHEN 325 MG TABLET 650 MG PO (09:17)
[2022-09-28] MEDS: TERAZOSIN 5 MG CAPSULE PO (09:17)
--- NOTE | 2022-09-28 10:07 | PC.NURSE ---
Addendum entered by Anjana Loco R.N. 09/28/22 13:12: Report called to jennifer alvarado. Original Note: Assess- Patient is alert and oriented x4, he is talkative and pleasant. He states that he does not want narcotics for pain as he does not care for the way they make him feel. Tylenol given and lidocaine patch applied to front of his r.hip. Blood sugar this am 120. He will be going to a snf at around 1300. Resting comfortably and patient has a good appetite.
--- NOTE | 2022-09-28 10:29 | PM.DS.1 ---
History of Present Illness History of Present Illness Date Patient Seen: 09/25/22 Time Patient Seen: 15:54 Chief complaint: GLF last night,right hip pain Narrative: Per admitting provider: Andrea Padilla is an 82yo M with PMH of prior left hip fracture, AAA, HTN, TIA and DM2 who presents with GLF and acetabular fracture of the right hip. Patient got up to use the restroom in the middle of the night, lost his balance and fell onto his right hip with immediate hip pain. He previously fractured his left hip in Jun 2020 after a fall at home which was found to be non-operable and he spent 2 months in a SNF. He reports minimal pain in the left hip currently while in bed. Denies CP, SOB, NV, abd pain or diarrhea. Discharge Providers Provider Date of admission: 09/25/22 14:59 Discharge Date: 09/28/22 Primary care physician: Aretha Rdz PA-C Consults: 09/25/22 15:04 Consult to Orthopedic Surgery Routine Comment: Consulting Provider: Sheri Ferraro Reason for consultation: hip fracture Has provider been notified: Yes 09/25/22 15:07 Consult to Occupational Therapy Evaluate & Treat Comment: Physician Instructions: Evaluate and treat Consult to Physical Therapy Evaluate & Treat Comment: Physician Instructions: Evaluate and Treat Discharge provider: Abilio Vidal MD Summary Hospital Course Discharge Diagnosis: 1. Fall, right acetabular fracture 2. Type 2 Diabetes 3. Hypertension 4. Atrial fibrillation Hospital Course: Mr. Padilla was admitted after a fall. He was found to have a right acetabular fracture. Ortho was consulted and said there was no need for surgery. They recommended to follow up in ortho clinic in 2-3 weeks. He was recommended touch toe weight-bearing of the right leg. He did get PT/OT in the hospital and was recommended to be discharged to SNF. His other medical issues remained stable in the hospital. Exam Vital Signs (past 8 hours): - 09/28/22 05:00 09/28/22 05:50 Temperature 97.0 F L Pulse Rate 59 L 53 L Respiratory Rate 18 Blood Pressure 181/61 H 179/64 H Pulse Oximetry 96 Oxygen Flow Rate 0 Oxygen Delivery Method Room Air Oxygen Flow Rate 0 Narrative Exam Narrative: GEN: no acute distress CV: regular rate and rhythm, no murmurs PULM: clear bilaterally ABD: soft, nontender, nondistended, no organomegaly EXT: warm and well perfused with no edema, minimal pain over right hip with palpation SKIN: multiple ecchymoses on upper extremities, but no hematoma present over hip NEURO: awake, alert, oriented, no focal deficits Objective Labs Result Diagrams: 09/27/22 11:18 09/27/22 11:20 Labs: Laboratory Results - last 24 hr 09/27/22 09/27/22 09/27/22 11:18 11:20 13:30 WBC 7.3 RBC 4.17 L Hgb 12.8 L Hct 37.7 L MCV 90.5 MCH 30.7 MCHC 33.9 RDW 13.4 Plt Count 125 L Neut % (Auto) 69.3 Lymph % (Auto) 12.3 L [place] % (Auto) 15.1 H Eos % (Auto) 3.0 Baso % (Auto) 0.3 Neut # (Auto) 5100 Lymph # (Auto) 900 L [place] # (Auto) 1100 H Eos # (Auto) 200 Baso # (Auto) 0 PT INR Sodium 138 Potassium 4.1 Chloride 104 Carbon Dioxide 25 BUN 33 H Creatinine 1.33 H Estimated GFR 54 L BUN/Creatinine Ratio 24.8 H Glucose 168 H Calcium 8.6 Troponin I Cancelled SARS-CoV-2 (PCR) Negative 09/28/22 05:02 WBC RBC Hgb Hct MCV MCH MCHC RDW Plt Count Neut % (Auto) Lymph % (Auto) [place] % (Auto) Eos % (Auto) Baso % (Auto) Neut # (Auto) Lymph # (Auto) [place] # (Auto) Eos # (Auto) Baso # (Auto) PT 21.4 H INR 1.9 H Sodium Potassium Chloride Carbon Dioxide BUN Creatinine Estimated GFR BUN/Creatinine Ratio Glucose Calcium Troponin I SARS-CoV-2 (PCR) [facility] Medical History Aortic aneurysm Chalazion left lower eyelid Colon cancer screening Foreign body in auditory canal Hypertension Personal history of transient ischemic attack (TIA), and cerebral infarction without residual deficits Skin cancer screening Type 2 diabetes mellitus with diabetic nephropathy Surgical History History of knee replacement Knee joint replacement status Family History Father Stroke Social History household members: spouse Smoking Status: Former smoker alcohol intake: current substance use type: does not use Discharge Plan Discharge Plan Patient Disposition: SNF Provider Discharge Comment: Mr. Padilla was admitted with a fall and an acetabular fracture. He was discharged to SNF for PT. I certify the postop hospital nursing home care is medically necessary on a continuing basis for any conditions for which he/ she received care during this hospitalization.: Yes The receiving facility has agreed to accept transfer and provide medical treatment.: Yes Discharge orders & Medications Prescriptions: New polyethylene glycol 3350 17 gram Powder In Packet 17 gm PO DAILY PRN (Reason: Constipation) Qty: 10 0RF lidocaine 5 % Adhesive Patch,Medicated 1 ea topical DAILY Qty: 10 0RF sennosides [senna] 8.6 mg Tablet 8.6 mg PO BID PRN (Reason: Constipation) Qty: 10 0RF Continued simvastatin 40 mg tablet 40 mg PO QPM Qty: 90 3RF Farxiga 10 mg tablet 10 mg PO QAM Qty: 90 1RF (DME) blood-glucose meter [Blood Glucose Monitoring] Kit See Rx Instructions .Route Qty: 1 0RF Rx Instructions: Check sugars TID warfarin [Jantoven] 5 mg tablet 5 mg PO SEE INSTRUCTIONS Qty: 30 5RF Rx Instructions: 5 mg on Wednesday, Wednesday, Wednesday, Wednesday 2.5 mg Wednesday, Wednesday, terazosin 5 mg capsule See Rx Instructions .ROUTE .COMPLEX Qty: 90 1RF Dose Instruction: TAKE 1 CAPSULE DAILY Rx Instructions: TAKE 1 CAPSULE DAILY Ozempic 0.25 mg or 0.5 mg(2 mg/1.5 mL) pen injector See Rx Instructions .ROUTE .COMPLEX Qty: 1.5 3RF Dose Instruction: INJECT 0.25MG (0.2ML) SUBCUTANEOUSLY EVERY WEEK FOR 4 DOSES Rx Instructions: INJECT 0.25MG (0.2ML) SUBCUTANEOUSLY EVERY WEEK FOR 4 DOSES carvedilol 6.25 mg tablet See Rx Instructions .ROUTE .COMPLEX Qty: 180 1RF Dose Instruction: TAKE 1 TABLET TWICE A DAY Rx Instructions: TAKE 1 TABLET TWICE A DAY (DME) True Metrix Glucose Test Strip Strip See Rx Instructions .ROUTE .COMPLEX Qty: 100 1RF Dose Instruction: USE TO CHECK BLOOD SUGAR LEVEL THREE(3) TIMES DAILY Rx Instructions: USE TO CHECK BLOOD SUGAR LEVEL THREE(3) TIMES DAILY hydralazine 25 mg tablet 25 mg PO BID aliskiren [Tekturna] 300 mg tablet 300 mg PO DAILY losartan 50 mg tablet 50 mg PO BID cholecalciferol (vitamin D3) 50 mcg (2,000 unit) capsule 50 mcg PO DAILY acetaminophen 500 mg tablet 500 mg PO Q6H PRN (Reason: Breakthrough Pain, Mild) triamcinolone acetonide 0.1 % ointment 1 applic topical BID Qty: 30 0RF Rx Instructions: use sparingly; do not use more than two weeks Follow up/Referrals: Aretha Rdz PA-C [Primary Care Provider] - Sheri Ferraro MD [Physician] - 2 Weeks (right acetabular fracture) Discharge Health Status Multidrug resistant organism: No MDRO Diet/Activity/Treatments Diet: Regular Liquid consistency: Normal/Thin Food texture: Regular [facility] Rehab type: Physical therapy Restrictions to mobility: touch-toe weightbearing of right leg Discharge Data Primary Care Provider: Aretha Rdz Attending Provider: Erick Reyes Quality VTE Deep Vein Thrombosis/Pulmonary Embolism Present on Admission: No
--- NOTE | 2022-09-28 12:20 | PT.IPTN ---
Current Diagnoses Unspecified fracture of unspecified acetabulum, initial encounter for closed fracture (09/25/22) Physical Therapy Treatment Note M2 PT-IP Current Condition Start: 09/26/22 12:00 Freq: NEEDED Status: Discharge Protocol: Document 09/28/22 11:50 TS (Rec: 09/28/22 15:19 TS [id number]) Physical Therapy Current Condition Current Condition Evaluation Date 09/28/22 Treatment Diagnosis GLF; Racetabular fx; difficulty in walking Onset Date 09/25/22 M3 PT-IP Subjective Start: 09/26/22 12:00 Freq: NEEDED Status: Discharge Protocol: Document 09/28/22 11:50 TS (Rec: 09/28/22 15:19 TS [id number]) Subjective Physical Therapy Visit Type Type Treatment Note Visit Start Time 11:50 Visit Stop Time 12:20 Total Visit Minutes 30 Notes SPTA lead treatment with assist from DIABETES EDUCATOR Annita for line managment and room setup while provided direct supervision and guidence throughout tx. Number of DIABETES EDUCATOR Visits 2 Physical Therapy Visit Comments Patient Comments Pt was eager and agreeable to PT session. M4 PT-IP Mobility and Gait Start: 09/26/22 12:00 Freq: NEEDED Status: Discharge Protocol: Document 09/28/22 11:50 TS (Rec: 09/28/22 15:19 TS [id number]) PT-Bed Mobility Assessment Supine to Sit Supine to Sit Standby Assistance Scooting Scooting to Edge of Bed Standby Assistance PT-Transfer Assessment Sit to and From Stand Sit to and from Stand Moderate Assistance,2 Person Assistance Equipment Transfer Assistive Device Front Wheeled Walker Orthotic/Prosthetic Devices or Brace: No Transfers Transfer Destination Chair Transfer Technique Stand Step Pivot Transfer Ability Level of Assist Minimal Assistance,2 Person Assistance Comments Mobility Comments Pt was SBA for bed mobility with HOB elevated and RUE to bed handrail to upright trunk. Reviewed TTWB precaution but pt prefered NWB on RLE. He required ModA x2 person into standing and required assist with management of FWW. He maintained NWB on RLE while hopping LLE bed >chair w/ heavy BUE WB on FWW. Gait Assessment Gait Gait Assistance Required: Moderate Assistance,2 Person Assist Distance (Feet) 3 Able to Maintain Weight Bearing Status Yes During Gait Assistive Devices Assistive Device Gait Belt,Front Wheeled Walker Orthotic/Prosthetic Devices or Brace: No Gait Deviations General Gait Pattern Decreased Stride Length, Decreased Feet Clearance,Step- to Gait Factors Limiting Gait Function Factors Limiting Gait Function Decreased Activity Tolerance, Decreased Strength,Poor Balance,Poor Safety Awareness Comments Gait Comments Pt did not feel comfortable at this time ambulating and asked to remain in chair. PT-Balance Assessment Sitting Balance and Reactions Static Sitting Balance Ability Good Dynamic Sitting Balance Ability Good Standing Balance and Reactions Static Standing Balance Ability Fair Dynamic Standing Balance Ability Poor Device Used FWW Comments Other Balance Tests/Deviations/Treatment Pt demonstrated good ability : to maintain midline in sitting . In standing he demonstrated the ability to keep upright but required Mod weight into FWW with UEs to maintain NWBering on RLE. M5 PT-IP Objective Assessments Start: 09/26/22 12:00 Freq: NEEDED Status: Discharge Protocol: Document 09/26/22 10:12 AB (Rec: 09/26/22 12:16 AB [id number]) Orientation Orientation/Cognition Level of Alertness Alert Orientation Name,Place,Situation Language Function Ability Hard of Hearing Safety Awareness Decreased Safety Awareness Gross Range of Motion Lower Extremity ROM Assessment Within Functional Limits Strength Lower Extremity Strength Assessment Right Impaired Hip 3-/5 Knee 4-/5 Coordination Assessment Gross Coordination Gross Coordination WNL Sensation Assessment Sensation Gross Sensation WNL Muscle Tone Muscle Tone WNL Yes M6 PT-IP Treatment Start: 09/26/22 12:00 Freq: NEEDED Status: Discharge Protocol: Document 09/28/22 11:50 TS (Rec: 09/28/22 15:19 TS [id number]) Physical Therapy Treatment Exercises Exercises Ankle Pumps,Quad Sets,Heel Slides,Short Arc Quads Education Education Provided Weight Bearing Status,Safety M7 PT-IP Assessment and Plan Start: 09/26/22 12:00 Freq: NEEDED Status: Discharge Protocol: Document 09/28/22 11:50 TS (Rec: 09/28/22 15:19 TS [id number]) PT Summary Assessment and Plan Potential Rehabilitation Potential Good Status of Condition at Evaluation Evolving Summary Impairments Pain,ROM,Strength,Balance, Coordination,Sensation,Tone, Cognition,Bed Mobility, Transfers,Gait,Activity Tolerance Progress Towards Goals Progressing Toward Goals,Slow Progress due to Activity Tolerance Assessment Summary Pt didn't demonstrate impulsivity during session today. He followed instructions well but required interruption from therapist to keep focus on tasks. He was not comfortable ambulating during today's session but did perform a stand step transfer to chair demonstrating good understanding of his TTWB on RLE precaution and maintained throughout tx. PT is recommending SNF to increase his functional mobility, transfers and ambulation with FWW. Goals Bed Mobility Goal Independent Transfer Goal Independent,Front Wheeled Walker Gait Goal Independent,Front Wheel Walker Gait Distance 25 Days to Meet Goals 38 Frequency of Treatment Frequency Of Treatment Once a Day Treatment Plan Physical Therapy Treatment Plan Bed Mobility Training,Transfer Training,Gait Training, Therapeutic Exercise,Balance Retraining,Discharge Planning, Hot or Cold Pack,Neuromuscular Re-ed,Coordination Retraining Other Recommendations and Next Treatment Transfers, gait TTWB RLE w/ Focus FWW tolerated, follow with chair, LE ex. Weight Bearing Status Weight Bearing Status Touch Down Weight Bearing Allowed Weight Bearing Amount (enter % RLE TTWB or #) (%) Recommendations To Nursing Amount of Assist Needed 1 Person Assist Discharge Recommendations PT Discharge Recommendations SNF Rehab Equipment Needed for Home Before FWW Discharge Transportation Needs at Discharge Wheelchair/Cabulance
== END 2022-09-28 13:12 ==
LOC: ED 14:51 → AC 15:34
PROVIDERS: Internal Medicine; Admitting Provider Student in an Organized Health Care Education/Training Program; Emergency Provider Emergency Medicine; PCP Physician Assistant; Referring Provider Emergency Medicine; Visit Provider Student in an Organized Health Care Education/Training Program
DX: S32.401A Unspecified fracture of right acetabulum, initial encounter for closed fracture (principal); W18.30XA Fall on same level, unspecified, initial encounter; Y92.009 Unspecified place in unspecified non-institutional (private) residence as the place of occurrence of the external cause; E11.9 Type 2 diabetes mellitus without complications; I10 Essential (primary) hypertension; I48.91 Unspecified atrial fibrillation; Z79.01 Long term (current) use of anticoagulants; Z86.73 Personal history of transient ischemic attack (TIA), and cerebral infarction without residual deficits; Z79.84 Long term (current) use of oral hypoglycemic drugs; Z20.822 Contact with and (suspected) exposure to COVID-19; N25.81 Secondary hyperparathyroidism of renal origin; E11.21 Type 2 diabetes mellitus with diabetic nephropathy; D64.9 Anemia, unspecified; N05.9 Unspecified nephritic syndrome with unspecified morphologic changes; R80.9 Proteinuria, unspecified; E78.9 Disorder of lipoprotein metabolism, unspecified
CPT/HCPCS: 36415; 70450; 71045; 72125; 72192; 73502; 80048; 80053; 80061; 82550; 82553; 82570; 82962; 83036; 83970; 84156; 84484; 85007; 85014; 85018; 85025; 85610; 85730; 87635; 93005; 96360; 96361; 97110; 97162; 97166; 97530; 99285; C9803; G0378

== ENCOUNTER → 2022-12-02 13:59 | Outpatient (CLI) | payer MEDICARE, BC, SELFPAY ==
[2022-09-25 17:05] VITALS: BMI 22.8
[2022-12-02 19:56] LABS: Hematocrit 39.4 % (41-53); Hemoglobin 13.1 g/dL (13.5-17.5)
[2022-12-02 20:04] LABS: BUN Creatinine Ratio 26.4 (6-22); Blood Urea Nitrogen 37 mg/dL (9-20); Carbon Dioxide 31 mmol/L (22-32); Chloride 102 mmol/L (98-107); Estimated Glomerular Filt Rate 50 mL/min (>60); Glucose 117 mg/dL (80-110); HEMOLYSIS < 15 (0-50); Potassium 4.1 mmol/L (3.4-5.1); Sodium 139 mmol/L (137-145)
[2022-12-02 21:08] LABS: Creatinine Urine Random 76.1 mg/dL; Protein (Total) Urine Random 23 mg/dL (0-12)
[2022-12-04 12:22] LABS: Parathyroid Hormone Int 37 pg/mL (15-65)
== END ==
PROVIDERS: PCP Physician Assistant; Visit Provider Student in an Organized Health Care Education/Training Program
DX: E11.21 Type 2 diabetes mellitus with diabetic nephropathy (principal); D64.9 Anemia, unspecified; N05.9 Unspecified nephritic syndrome with unspecified morphologic changes; N25.81 Secondary hyperparathyroidism of renal origin; R80.9 Proteinuria, unspecified
CPT/HCPCS: 80048; 82570; 83036; 83970; 84156; 85014; 85018

== ENCOUNTER → 2023-03-09 10:31 | Outpatient (CLI) | payer MEDICARE, BC, SELFPAY ==
[2022-09-25 17:05] VITALS: BMI 22.8
[2023-03-09 20:06] LABS: Add Manual Diff / Slide Review NO; Basophils Absolute Auto 0 /uL (0-100); Basophils Percent Auto 0.7 % (0-2); Eosinophils Absolute Auto 100 /uL (0-450); Eosinophils Percent Auto 1.8 % (2-4); Hematocrit 35.1 % (41-53); Hemoglobin 11.8 g/dL (13.5-17.5); Lymphocytes Absolute Auto 1100 /uL (1100-4500); Lymphocytes Percent Auto 15.3 % (25-40); Mean Corpuscular HGB Conc 33.6 % (30-36); Mean Corpuscular Hemoglobin 29.7 PG (26-34); Mean Corpuscular Volume 88.3 fL (80-100); Monocytes Absolute Auto 1100 /uL (0-900); Monocytes Percent Auto 15.4 % (3-14); Neutrophils Absolute Auto 4700 /uL (1500-7000); Neutrophils Percent Auto 66.8 % (50-75); Platelet Count 175 X10^3/uL (150-400); Red Blood Cell Count 3.98 X10^6/uL (4.5-5.9); Red Cell Distribution Width 12.7 % (11.6-14.8); White Blood Cell Count 7.1 X10^3/uL (4.5-11.0)
[2023-03-09 20:10] LABS: HEMOLYSIS < 15 (0-50); Iron 34 ug/dL (49-181)
[2023-03-09 20:19] LABS: Alanine Aminotransferase 22 IU/L (<50); Albumin 3.6 g/dL (3.5-5.0); Albumin Globulin Ratio 1.1 (1.0-2.8); Alkaline Phosphatase 97 U/L (38-126); Aspartate Aminotransferase 31 IU/L (17-59); BUN Creatinine Ratio 28.1 (6-22); Bilirubin Total 0.6 mg/dL (0.2-1.3); Blood Urea Nitrogen 41 mg/dL (9-20); Calcium 9.3 mg/dL (8.4-10.2); Carbon Dioxide 30 mmol/L (22-32); Chloride 104 mmol/L (98-107); Estimated Glomerular Filt Rate 48 mL/min (>60); Globulin 3.2 g/dL (1.7-4.1); Glucose 104 mg/dL (80-110); HEMOLYSIS < 15 (0-50); Potassium 4.5 mmol/L (3.4-5.1); Sodium 138 mmol/L (137-145); Total Protein 6.8 g/dL (6.3-8.2)
[2023-03-09 20:21] LABS: Percent Iron Saturation 8 % (20-50); Total Iron Binding Capacity 416 ug/dL (261-462); Transferrin 309 mg/dL (206-381)
[2023-03-09 20:47] LABS: Ferritin 340 ng/mL (18-464)
[2023-03-09 21:04] LABS: Vitamin B12 Reflex MMA if <400 901 pg/mL (239-931)
== END ==
PROVIDERS: PCP Physician Assistant; Visit Provider Physician Assistant
DX: E11.21 Type 2 diabetes mellitus with diabetic nephropathy (principal); I71.9 Aortic aneurysm of unspecified site, without rupture; N18.30 Chronic kidney disease, stage 3 unspecified; E53.8 Deficiency of other specified B group vitamins
CPT/HCPCS: 80053; 82607; 82728; 83540; 83550; 85025

== ENCOUNTER → 2023-06-15 12:05 | Outpatient (CLI) | payer MEDICARE, BC, SELFPAY ==
[2022-09-25 17:05] VITALS: BMI 22.8
[2023-06-15 20:13] LABS: Add Manual Diff / Slide Review NO; Basophils Absolute Auto 300 /uL (0-100); Basophils Percent Auto 3.9 % (0-2); Eosinophils Absolute Auto 100 /uL (0-450); Eosinophils Percent Auto 2.1 % (2-4); Hematocrit 38.4 % (41-53); Lymphocytes Absolute Auto 1200 /uL (1100-4500); Lymphocytes Percent Auto 16.8 % (25-40); Mean Corpuscular HGB Conc 33.9 % (30-36); Mean Corpuscular Hemoglobin 31.1 PG (26-34); Mean Corpuscular Volume 91.8 fL (80-100); Monocytes Absolute Auto 700 /uL (0-900); Monocytes Percent Auto 9.7 % (3-14); Neutrophils Absolute Auto 4600 /uL (1500-7000); Neutrophils Percent Auto 67.5 % (50-75); Platelet Count 151 X10^3/uL (150-400); Red Blood Cell Count 4.18 X10^6/uL (4.5-5.9); Red Cell Distribution Width 14.1 % (11.6-14.8); White Blood Cell Count 6.9 X10^3/uL (4.5-11.0)
[2023-06-15 20:27] LABS: Creatinine Urine Random 73.6 mg/dL; Protein (Total) Urine Random 37 mg/dL (0-12)
[2023-06-15 21:36] LABS: Alanine Aminotransferase 27 IU/L (<50); Albumin 3.4 g/dL (3.5-5.0); Albumin Globulin Ratio 1.2 (1.0-2.8); Alkaline Phosphatase 87 U/L (38-126); Aspartate Aminotransferase 28 IU/L (17-59); BUN Creatinine Ratio 23.2 (6-22); Bilirubin Total 0.4 mg/dL (0.2-1.3); Blood Urea Nitrogen 32 mg/dL (9-20); Calcium 8.9 mg/dL (8.4-10.2); Carbon Dioxide 28 mmol/L (22-32); Chloride 103 mmol/L (98-107); Estimated Glomerular Filt Rate 51 mL/min (>60); Globulin 2.9 g/dL (1.7-4.1); Glucose 163 mg/dL (80-110); HEMOLYSIS < 15 (0-50); Potassium 4.5 mmol/L (3.4-5.1); Sodium 139 mmol/L (137-145); Total Protein 6.3 g/dL (6.3-8.2)
[2023-06-16 23:08] LABS: x Labcorp Estim. Avg Glu (eAG) 137 mg/dL (.); x Labcorp Hemoglobin A1c 6.4 % (4.8-5.6)
[2023-06-18 06:36] LABS: Parathyroid Hormone Int 49 pg/mL (15-65)
== END ==
PROVIDERS: Student in an Organized Health Care Education/Training Program; PCP Physician Assistant; Visit Provider Physician Assistant
DX: D64.9 Anemia, unspecified (principal); E11.21 Type 2 diabetes mellitus with diabetic nephropathy; N25.81 Secondary hyperparathyroidism of renal origin; R80.9 Proteinuria, unspecified
CPT/HCPCS: 80053; 82570; 83036; 83970; 84156; 85025

== ENCOUNTER → 2023-06-24 08:59 | Outpatient (CLI) | payer MEDICARE, BC, SELFPAY ==
[2022-09-25 17:05] VITALS: BMI 22.8
[2023-06-28 10:08] LABS: Fecal Immunochemical Test Negative (Negative)
== END ==
PROVIDERS: PCP Physician Assistant; Visit Provider Physician Assistant
DX: D64.9 Anemia, unspecified (principal)
CPT/HCPCS: 82274

== ENCOUNTER → 2023-09-13 12:59 | Outpatient (CLI) | payer MEDICARE, BC, SELFPAY ==
[2022-09-25 17:05] VITALS: BMI 22.8
[2023-09-13 19:26] LABS: Add Manual Diff / Slide Review NO; Basophils Absolute Auto 100 /uL (0-100); Basophils Percent Auto 0.8 % (0-2); Eosinophils Absolute Auto 100 /uL (0-450); Eosinophils Percent Auto 1.8 % (2-4); Hematocrit 41.6 % (41-53); Hemoglobin 14.2 g/dL (13.5-17.5); Lymphocytes Absolute Auto 1300 /uL (1100-4500); Lymphocytes Percent Auto 17.5 % (25-40); Mean Corpuscular HGB Conc 34.2 % (30-36); Mean Corpuscular Hemoglobin 31.7 PG (26-34); Mean Corpuscular Volume 92.6 fL (80-100); Monocytes Absolute Auto 900 /uL (0-900); Monocytes Percent Auto 11.8 % (3-14); Neutrophils Absolute Auto 4900 /uL (1500-7000); Neutrophils Percent Auto 68.1 % (50-75); Platelet Count 146 X10^3/uL (150-400); Red Blood Cell Count 4.49 X10^6/uL (4.5-5.9); Red Cell Distribution Width 12.8 % (11.6-14.8); White Blood Cell Count 7.2 X10^3/uL (4.5-11.0)
[2023-09-13 19:41] LABS: Hemoglobin A1C% w Est Avg Glu 6.4 % (4.0-6.0)
[2023-09-13 20:30] LABS: Vitamin B12 985 pg/mL (239-931)
== END ==
PROVIDERS: PCP Family Medicine; Visit Provider Physician Assistant
DX: M25.551 Pain in right hip (principal); E11.21 Type 2 diabetes mellitus with diabetic nephropathy; D64.9 Anemia, unspecified; E53.8 Deficiency of other specified B group vitamins
CPT/HCPCS: 82607; 83036; 85025

== ENCOUNTER → 2023-09-15 09:42 | Outpatient (CLI) | payer MEDICARE, BC, SELFPAY ==
[2022-09-25 17:05] VITALS: BMI 22.8
[2023-09-15 20:48] LABS: Creatinine Urine Random 71.5 mg/dL
[2023-09-15 20:52] LABS: Microalbumi Creatinin Ratio Ur 216.7 ug/mg CR (<30); Microalbumin Urine Random 15.5 mg/dL (0-1.6)
== END ==
PROVIDERS: PCP Family Medicine; Visit Provider Physician Assistant
DX: N18.30 Chronic kidney disease, stage 3 unspecified (principal); E11.21 Type 2 diabetes mellitus with diabetic nephropathy
CPT/HCPCS: 82043; 82570

== ENCOUNTER → 2023-12-09 13:29 | Outpatient (CLI) | payer MEDICARE, BC, SELFPAY ==
[2022-09-25 17:05] VITALS: BMI 22.8
[2023-12-09 19:19] LABS: Add Manual Diff / Slide Review NO; Basophils Absolute Auto 100 /uL (0-100); Basophils Percent Auto 0.7 % (0-2); Eosinophils Absolute Auto 100 /uL (0-450); Eosinophils Percent Auto 1.4 % (2-4); Hematocrit 40.8 % (41-53); Hemoglobin 13.9 g/dL (13.5-17.5); Lymphocytes Absolute Auto 1200 /uL (1100-4500); Lymphocytes Percent Auto 15.1 % (25-40); Mean Corpuscular HGB Conc 34.1 % (30-36); Mean Corpuscular Hemoglobin 31.7 PG (26-34); Monocytes Absolute Auto 1100 /uL (0-900); Monocytes Percent Auto 14.8 % (3-14); Neutrophils Absolute Auto 5200 /uL (1500-7000); Platelet Count 144 X10^3/uL (150-400); Red Blood Cell Count 4.39 X10^6/uL (4.5-5.9); Red Cell Distribution Width 12.8 % (11.6-14.8); White Blood Cell Count 7.6 X10^3/uL (4.5-11.0)
[2023-12-09 19:46] LABS: Alanine Aminotransferase 19 IU/L (<50); Albumin 3.6 g/dL (3.5-5.0); Albumin Globulin Ratio 1.2 (1.0-2.8); Alkaline Phosphatase 80 U/L (38-126); Aspartate Aminotransferase 25 IU/L (17-59); BUN Creatinine Ratio 22.1 (6-22); Bilirubin Total 0.6 mg/dL (0.2-1.3); Blood Urea Nitrogen 32 mg/dL (9-20); Calcium 9.2 mg/dL (8.4-10.2); Carbon Dioxide 29 mmol/L (22-32); Chloride 102 mmol/L (98-107); Estimated Glomerular Filt Rate 48 mL/min (>60); Globulin 2.9 g/dL (1.7-4.1); Glucose 161 mg/dL (80-110); HEMOLYSIS < 15 (0-50); Potassium 3.8 mmol/L (3.4-5.1); Sodium 139 mmol/L (137-145); Total Protein 6.5 g/dL (6.3-8.2)
[2023-12-09 20:18] LABS: Ferritin 453 ng/mL (18-464)
[2023-12-09 20:33] LABS: Hemoglobin A1C% w Est Avg Glu 6.1 % (4.0-6.0)
[2023-12-09 21:04] LABS: HEMOLYSIS < 15 (0-50); Iron 72 ug/dL (49-181)
[2023-12-09 21:14] LABS: Percent Iron Saturation 21 % (20-50); Total Iron Binding Capacity 350 ug/dL (261-462); Transferrin 290 mg/dL (206-381)
== END ==
PROVIDERS: PCP Family Medicine; Visit Provider Family Medicine
DX: E11.21 Type 2 diabetes mellitus with diabetic nephropathy (principal); D64.9 Anemia, unspecified; N18.30 Chronic kidney disease, stage 3 unspecified; I10 Essential (primary) hypertension
CPT/HCPCS: 80053; 82728; 83036; 83540; 83550; 85025

== ENCOUNTER → 2024-01-19 13:51 | Outpatient (CLI) | payer MEDICARE, BC, SELFPAY ==
[2022-09-25 17:05] VITALS: BMI 22.8
[2024-01-19 19:35] LABS: Hematocrit 41.1 % (41-53); Hemoglobin 14.1 g/dL (13.5-17.5)
[2024-01-19 20:14] LABS: Blood Urea Nitrogen 32 mg/dL (9-20); Calcium 9.4 mg/dL (8.4-10.2); Carbon Dioxide 26 mmol/L (22-32); Chloride 106 mmol/L (98-107); Estimated Glomerular Filt Rate 56 mL/min (>60); Glucose 94 mg/dL (80-110); HEMOLYSIS 16 (0-50); Potassium 4.5 mmol/L (3.4-5.1); Sodium 142 mmol/L (137-145)
[2024-01-19 20:35] LABS: Creatinine Urine Random 65.3 mg/dL; Protein (Total) Urine Random 107 mg/dL (0-12); Protein Creatinine Ratio Urine 1.63 GRAM/24H
[2024-01-22 08:32] LABS: Parathyroid Hormone Int 49 pg/mL (15-65)
== END ==
PROVIDERS: PCP Family Medicine; Visit Provider Student in an Organized Health Care Education/Training Program
DX: N05.9 Unspecified nephritic syndrome with unspecified morphologic changes (principal); D70.9 Neutropenia, unspecified; D63.1 Anemia in chronic kidney disease; N25.81 Secondary hyperparathyroidism of renal origin; R80.9 Proteinuria, unspecified
CPT/HCPCS: 80048; 82570; 83970; 84156; 85014; 85018

== ENCOUNTER → 2024-04-10 12:04 | Outpatient (CLI) | payer MEDICARE, BC, SELFPAY ==
[2022-09-25 17:05] VITALS: BMI 22.8
[2024-04-10 19:20] LABS: Hematocrit 38.4 % (41-53)
[2024-04-10 19:38] LABS: BUN Creatinine Ratio 21.8 (6-22); Blood Urea Nitrogen 27 mg/dL (9-20); Calcium 9.4 mg/dL (8.4-10.2); Carbon Dioxide 29 mmol/L (22-32); Chloride 105 mmol/L (98-107); Estimated Glomerular Filt Rate 58 mL/min (>60); Glucose 189 mg/dL (80-110); HEMOLYSIS < 15 (0-50); Potassium 4.6 mmol/L (3.4-5.1); Sodium 139 mmol/L (137-145)
[2024-04-10 19:43] LABS: Creatinine Urine Random 78.2 mg/dL; Protein (Total) Urine Random 81 mg/dL (0-12); Protein Creatinine Ratio Urine 1.03 GRAM/24H
[2024-04-13 12:05] LABS: Parathyroid Hormone Int 47 pg/mL (15-65)
== END ==
PROVIDERS: PCP Family Medicine; Visit Provider Student in an Organized Health Care Education/Training Program
DX: N05.9 Unspecified nephritic syndrome with unspecified morphologic changes (principal); D70.9 Neutropenia, unspecified; D63.1 Anemia in chronic kidney disease; N25.81 Secondary hyperparathyroidism of renal origin; R80.9 Proteinuria, unspecified
CPT/HCPCS: 80048; 82570; 83970; 84156; 85014; 85018

== ENCOUNTER → 2024-05-01 13:10 | Outpatient (CLI) | payer MEDICARE, BC, SELFPAY ==
[2022-09-25 17:05] VITALS: BMI 22.8
[2024-05-01 20:21] LABS: Estimated Glomerular Filt Rate 59 mL/min (>60)
[2024-05-01 20:22] LABS: BUN Creatinine Ratio 22.1 (6-22); Blood Urea Nitrogen 27 mg/dL (9-20); Calcium 8.5 mg/dL (8.4-10.2); Carbon Dioxide 26 mmol/L (22-32); Chloride 108 mmol/L (98-107); Glucose 198 mg/dL (80-110); HEMOLYSIS < 15 (0-50); Potassium 4.4 mmol/L (3.4-5.1); Sodium 139 mmol/L (137-145)
[2024-05-01 20:23] LABS: Add Manual Diff / Slide Review NO; Basophils Absolute Auto 0 /uL (0-100); Basophils Percent Auto 0.5 % (0-2); Eosinophils Absolute Auto 200 /uL (0-450); Eosinophils Percent Auto 2.9 % (2-4); Hematocrit 34.7 % (41-53); Hemoglobin 11.8 g/dL (13.5-17.5); Lymphocytes Absolute Auto 1200 /uL (1100-4500); Lymphocytes Percent Auto 16.8 % (25-40); Mean Corpuscular HGB Conc 34.1 % (30-36); Mean Corpuscular Hemoglobin 31.8 PG (26-34); Mean Corpuscular Volume 93.4 fL (80-100); Monocytes Absolute Auto 900 /uL (0-900); Monocytes Percent Auto 13.4 % (3-14); Neutrophils Absolute Auto 4600 /uL (1500-7000); Neutrophils Percent Auto 66.4 % (50-75); Platelet Count 141 X10^3/uL (150-400); Red Blood Cell Count 3.72 X10^6/uL (4.5-5.9); Red Cell Distribution Width 12.5 % (11.6-14.8); White Blood Cell Count 6.9 X10^3/uL (4.5-11.0)
== END ==
PROVIDERS: PCP Family Medicine; Visit Provider Family Medicine
DX: R31.0 Gross hematuria (principal); N18.30 Chronic kidney disease, stage 3 unspecified
CPT/HCPCS: 80048; 85025

== ENCOUNTER → 2024-08-23 09:36 | Outpatient (CLI) | payer MEDICARE, BC, SELFPAY ==
[2024-07-10 08:54] VITALS: BMI 22.8
[2024-08-23 20:35] LABS: Alanine Aminotransferase 13 IU/L (<50); Albumin 3.3 g/dL (3.5-5.0); Albumin Globulin Ratio 1.1 (1.0-2.8); Alkaline Phosphatase 85 U/L (38-126); Aspartate Aminotransferase 33 IU/L (17-59); Bilirubin Total 0.6 mg/dL (0.2-1.3); Bilirubin Unconjugated 0.3 mg/dL (0.0-1.1); Cholesterol 81 mg/dL (140-199); HDL Cholesterol 33 mg/dL (40-60); HEMOLYSIS < 15 (0-50); LDL Cholesterol Calculated 34 mg/dL (<100); Total Protein 6.3 g/dL (6.3-8.2); Triglycerides 69 mg/dL (35-150)
[2024-08-23 20:44] LABS: Erythrocyte Sedimentation Rate 28 MM/HR (0-15)
[2024-08-23 21:22] LABS: Rheumatoid Factor < 8.6 IU/mL (<12.0)
[2024-08-23 21:25] LABS: Free T4, Direct Thyroxine 1.26 ng/dL (0.78-2.19)
[2024-08-23 21:39] LABS: Thyroid Stimulating Hormone 1.36 uIU/mL (0.47-4.68)
[2024-08-23 21:42] LABS: C-Reactive Protein Quant 0.8 mg/dL (<1.0)
[2024-08-26 11:12] LABS: CCP Antibodies IgG/IgA 5 units (0-19)
[2024-08-29 14:39] LABS: ANA Screen, IFA Negative (.)
== END ==
PROVIDERS: PCP Family Medicine; Visit Provider Internal Medicine Cardiovascular Disease
DX: E78.5 Hyperlipidemia, unspecified (principal); M25.40 Effusion, unspecified joint
CPT/HCPCS: 80061; 80076; 84439; 84443; 85651; 86038; 86140; 86200; 86430

== ENCOUNTER → 2024-09-12 14:58 | Outpatient (CLI) | payer MEDICARE, BC, SELFPAY ==
[2024-07-10 08:54] VITALS: BMI 22.8
[2024-09-12 19:31] LABS: Creatinine Urine Random 83.11 mg/dL
[2024-09-12 19:39] LABS: Microalbumin Urine Random 16.7 mg/dL (0-1.6)
== END ==
PROVIDERS: PCP Family Medicine; Visit Provider Family Medicine
DX: N18.30 Chronic kidney disease, stage 3 unspecified (principal); E11.21 Type 2 diabetes mellitus with diabetic nephropathy
CPT/HCPCS: 82043; 82570

== ENCOUNTER → 2024-11-08 13:26 | Outpatient (CLI) | payer MEDICARE, BC, SELFPAY ==
[2024-07-10 08:54] VITALS: BMI 22.8
[2024-11-08 13:44] LABS: Add Manual Diff / Slide Review NO; Basophils Absolute Auto 0 /uL (0-100); Basophils Percent Auto 0.5 % (0-2); Eosinophils Absolute Auto 200 /uL (0-450); Hematocrit 28.3 % (41-53); Hemoglobin 9.2 g/dL (13.5-17.5); Lymphocytes Absolute Auto 1000 /uL (1100-4500); Lymphocytes Percent Auto 11.9 % (25-40); Mean Corpuscular HGB Conc 32.5 % (30-36); Mean Corpuscular Hemoglobin 26.5 PG (26-34); Mean Corpuscular Volume 81.5 fL (80-100); Monocytes Absolute Auto 1100 /uL (0-900); Monocytes Percent Auto 13.1 % (3-14); Neutrophils Absolute Auto 5900 /uL (1500-7000); Neutrophils Percent Auto 72.5 % (50-75); Platelet Count 254 X10^3/uL (150-400); Red Blood Cell Count 3.47 X10^6/uL (4.5-5.9); Red Cell Distribution Width 18.4 % (11.6-14.8); White Blood Cell Count 8.2 X10^3/uL (4.5-11.0)
[2024-11-08 14:17] LABS: HEMOLYSIS < 15 (0-50)
[2024-11-08 14:22] LABS: BUN Creatinine Ratio 21.3 (6-22); Blood Urea Nitrogen 27 mg/dL (9-20); Calcium 9.1 mg/dL (8.4-10.2); Carbon Dioxide 25 mmol/L (22-32); Chloride 106 mmol/L (98-107); Estimated Glomerular Filt Rate 56 mL/min (>60); Glucose 209 mg/dL (80-110); HEMOLYSIS < 15 (0-50); Iron 25 ug/dL (49-181); Potassium 4.6 mmol/L (3.4-5.1); Sodium 139 mmol/L (137-145)
[2024-11-08 14:32] LABS: Percent Iron Saturation 7 % (20-50); Total Iron Binding Capacity 359 ug/dL (261-462); Transferrin 300 mg/dL (206-381)
[2024-11-08 21:58] LABS: Vitamin B12 974 pg/mL (239-931)
== END ==
PROVIDERS: Family Medicine; PCP Family Medicine; Referring Provider Nurse Practitioner Acute Care; Visit Provider Nurse Practitioner Acute Care
DX: K22.89 Other specified disease of esophagus (principal); I48.91 Unspecified atrial fibrillation; D64.9 Anemia, unspecified; I48.0 Paroxysmal atrial fibrillation; E53.8 Deficiency of other specified B group vitamins; I73.9 Peripheral vascular disease, unspecified; I10 Essential (primary) hypertension
CPT/HCPCS: 36415; 80048; 82607; 83540; 83550; 85025

== ENCOUNTER → 2024-11-13 13:53 | Outpatient (CLI) | payer MEDICARE, BC, SELFPAY ==
[2024-07-10 08:54] VITALS: BMI 22.8
[2024-11-13 19:48] LABS: Hematocrit 28.2 % (41-53); Hemoglobin 9.1 g/dL (13.5-17.5); Mean Corpuscular HGB Conc 32.2 % (30-36); Mean Corpuscular Hemoglobin 26.8 PG (26-34); Mean Corpuscular Volume 83.2 fL (80-100); Platelet Count 242 X10^3/uL (150-400); Red Blood Cell Count 3.39 X10^6/uL (4.5-5.9); Red Cell Distribution Width 18.6 % (11.6-14.8); White Blood Cell Count 8.9 X10^3/uL (4.5-11.0)
[2024-11-13 19:49] LABS: Add Manual Diff / Slide Review YES
[2024-11-13 20:04] LABS: Anisocytosis 1+; Neutrophils Absolute Manual 6141 /uL (3000-5900); Total Cells Counted 100
== END ==
PROVIDERS: PCP Family Medicine; Visit Provider Family Medicine
DX: D64.9 Anemia, unspecified (principal)
CPT/HCPCS: 85007; 85025

== ENCOUNTER → 2024-12-07 13:54 | Outpatient (CLI) | payer MEDICARE, BC, SELFPAY ==
[2024-07-10 08:54] VITALS: BMI 22.8
[2024-12-07 20:26] LABS: Hematocrit 34.2 % (41-53); Hemoglobin 11.1 g/dL (13.5-17.5)
[2024-12-07 20:36] LABS: BUN Creatinine Ratio 25.7 (6-22); Blood Urea Nitrogen 29 mg/dL (9-20); Calcium 9.2 mg/dL (8.4-10.2); Carbon Dioxide 29 mmol/L (22-32); Chloride 106 mmol/L (98-107); Estimated Glomerular Filt Rate > 60 mL/min (>60); Glucose 150 mg/dL (80-110); HEMOLYSIS 16 (0-50); Potassium 4.2 mmol/L (3.4-5.1); Sodium 139 mmol/L (137-145)
[2024-12-07 20:59] LABS: Creatinine Urine Random 64.84 mg/dL; Protein (Total) Urine Random 48 mg/dL (0-12); Protein Creatinine Ratio Urine 0.74 GRAM/24H
== END ==
PROVIDERS: PCP Family Medicine; Visit Provider Student in an Organized Health Care Education/Training Program
DX: N05.9 Unspecified nephritic syndrome with unspecified morphologic changes (principal); D70.9 Neutropenia, unspecified; D63.1 Anemia in chronic kidney disease; N25.81 Secondary hyperparathyroidism of renal origin; R80.9 Proteinuria, unspecified
CPT/HCPCS: 80048; 82570; 83970; 84156; 85014; 85018

== ENCOUNTER → 2024-12-09 13:00 | Outpatient (CLI) | payer MEDICARE, BC, SELFPAY ==
[2024-07-10 08:54] VITALS: BMI 22.8
[2024-12-13 13:10] LABS: Fecal Immunochemical Test Negative (Negative)
== END ==
LOC: LAB 04-10 08:57
PROVIDERS: PCP Family Medicine; Referring Provider Family Medicine; Visit Provider Family Medicine
DX: K22.89 Other specified disease of esophagus (principal); I48.0 Paroxysmal atrial fibrillation; I73.9 Peripheral vascular disease, unspecified; D64.9 Anemia, unspecified; E53.8 Deficiency of other specified B group vitamins; I10 Essential (primary) hypertension
CPT/HCPCS: 82274

== ENCOUNTER → 2025-01-18 13:22 | Outpatient (CLI) | payer MEDICARE, BC, SELFPAY ==
[2024-07-10 08:54] VITALS: BMI 22.8
[2025-01-18 18:58] LABS: Add Manual Diff / Slide Review NO; Basophils Absolute Auto 100 /uL (0-100); Basophils Percent Auto 0.8 % (0-2); Eosinophils Absolute Auto 200 /uL (0-450); Hematocrit 39.6 % (41-53); Hemoglobin 13.2 g/dL (13.5-17.5); Lymphocytes Absolute Auto 1000 /uL (1100-4500); Lymphocytes Percent Auto 15.3 % (25-40); Mean Corpuscular HGB Conc 33.4 % (30-36); Mean Corpuscular Hemoglobin 29.9 PG (26-34); Mean Corpuscular Volume 89.5 fL (80-100); Monocytes Absolute Auto 1000 /uL (0-900); Monocytes Percent Auto 15.5 % (3-14); Neutrophils Absolute Auto 4400 /uL (1500-7000); Neutrophils Percent Auto 65.4 % (50-75); Platelet Count 140 X10^3/uL (150-400); Red Blood Cell Count 4.43 X10^6/uL (4.5-5.9); Red Cell Distribution Width 17.3 % (11.6-14.8); White Blood Cell Count 6.7 X10^3/uL (4.5-11.0)
[2025-01-18 19:08] LABS: HEMOLYSIS < 15 (0-50); Iron 66 ug/dL (49-181)
[2025-01-18 19:14] LABS: Alanine Aminotransferase 17 IU/L (<50); Albumin 3.7 g/dL (3.5-5.0); Albumin Globulin Ratio 1.4 (1.0-2.8); Alkaline Phosphatase 107 U/L (38-126); Aspartate Aminotransferase 25 IU/L (17-59); BUN Creatinine Ratio 26.4 (6-22); Bilirubin Total 0.4 mg/dL (0.2-1.3); Blood Urea Nitrogen 33 mg/dL (9-20); Calcium 9.4 mg/dL (8.4-10.2); Carbon Dioxide 28 mmol/L (22-32); Chloride 106 mmol/L (98-107); Estimated Glomerular Filt Rate 57 mL/min (>60); Globulin 2.6 g/dL (1.7-4.1); Glucose 195 mg/dL (80-110); HEMOLYSIS < 15 (0-50); Potassium 4.4 mmol/L (3.4-5.1); Sodium 141 mmol/L (137-145); Total Protein 6.3 g/dL (6.3-8.2)
[2025-01-18 19:22] LABS: Percent Iron Saturation 20 % (20-50); Total Iron Binding Capacity 336 ug/dL (261-462); Transferrin 295 mg/dL (206-381)
[2025-01-18 19:45] LABS: Ferritin 523 ng/mL (18-464)
[2025-01-20 19:09] LABS: Free Kappa Lt Chains, Serum 80.2 mg/L (3.3-19.4); Free Lambda Lt Chains,Serum 36.6 mg/L (5.7-26.3)
[2025-01-23 13:36] LABS: Albumin 3.2 g/dL (2.9-4.4); Alpha-1-Globulin 0.2 g/dL (0.0-0.4); Alpha-2-Globulin 0.7 g/dL (0.4-1.0); Gamma Globulin 1.2 g/dL (0.4-1.8); Globulin Total 3.1 g/dL (2.2-3.9); Immunoglobulin A, Serum 351 mg/dL (61-437); Immunoglobulin G,Serum 995 mg/dL (603-1613); Immunoglobulin M, Serum 119 mg/dL (15-143); Protein, Total 6.3 g/dL (6.0-8.5)
== END ==
PROVIDERS: PCP Family Medicine; Visit Provider Family Medicine
DX: R76.8 Other specified abnormal immunological findings in serum (principal); K92.2 Gastrointestinal hemorrhage, unspecified; E11.9 Type 2 diabetes mellitus without complications; I63.9 Cerebral infarction, unspecified; D64.9 Anemia, unspecified; N18.30 Chronic kidney disease, stage 3 unspecified
CPT/HCPCS: 80053; 82728; 82784; 83540; 83550; 83883; 84155; 84165; 85025; 86334

== ENCOUNTER 2025-02-02 11:40 | Inpatient (IN) | payer MEDICARE, BC, SELFPAY ==
[2024-07-10 08:54] VITALS: BMI 22.8
[2025-02-02] VITALS (46 sets, daily range): BP systolic 91–163; BP diastolic 36–102; PULSE 57–71; RESP 13–32; TEMP 36.3–37.2; O2SAT 95–100; BMI 25.2
--- NOTE | 2025-02-02 11:52 | EKG_ITS ---
[address] [address] Test Date: 2025-02-02 Pat Name: Andrea Padilla Department: Room: Gender: Male Legal Process Specialist: TAN : 1940 Requested By: Order Number: [id number] Reading MD: Devon Kahn Measurements Intervals [place] Rate: 70 P: PA: QRS: 51 QRSD: 86 T: 39 QT: 398 QTc: 429 Interpretive Statements NSR Cannot rule out Inferior infarct , age undetermined Electronically Signed On 02-05-2025 8:31:46 PDT by Devon Kahn
--- NOTE | 2025-02-02 12:06 | ED.GENADULT ---
HPI - General Adult General Chief complaint: GI Bleed Stated complaint: GI Bleed Time Seen by Provider: 02/02/25 11:54 History of Present Illness HPI narrative: 84-year-old gentleman with history of hypertension, coronary artery disease, hyperlipidemia who has been on Pradaxa for chronic atrial fibrillation presented to the [facility] earlier today with concerns for explosive diarrhea happening almost a week previously it was felt to be quite dark. They stopped Pradaxa at that time with concerns for GI bleed. He has not had subsequent diarrhea. He notes that he has some mild exertional dyspnea with walking has not had another bowel movement for the last 48 hours, no chest pain, fevers nausea or vomiting. Additionally, he complains that he is having more low back pain which is unusual for him. At [facility] hemoglobin today was 6.7, patient is described as pale, weak, dyspneic with exertion and he is transferred via air lift to [facility]. Patient apparently has a previous episode of esophageal bleeding Records from hospitalization at [facility] October 17, 2024 indicate significant anemia with hemoglobin at 5.7, INR greater than 10 not currently on Coumadin, EGD on October 09 showed otherwise normal stomach and duodenum. Colonoscopy on October 20 showed no acute abnormalities. Concurrent with that visit was an acute left lacunar infarct stroke. Related Data Home Medications Medication Instructions Recorded Confirmed acetaminophen 500 mg tablet 500 mg PO Q6H PRN Breakthrough 03/18/21 02/02/25 Pain, Mild losartan 50 mg tablet 50 mg PO BID 03/18/21 02/02/25 aliskiren 300 mg tablet (Tekturna) 300 mg PO DAILY 03/10/23 02/02/25 calcium 325 mg-vit D3 12.5 1 tab PO DAILY 03/10/23 02/02/25 mcg-zinc 2.75 [id number]-[id number] tablet (Citracal-D3 Maximum Plus) carvedilol 3.125 mg tablet 3.2 mg PO BID 03/10/23 02/02/25 hydralazine 25 mg tablet 25 mg PO BID 03/10/23 02/02/25 mecobalamin (vitamin B12) 1,000 1,000 mcg PO DAILY 03/10/23 02/02/25 mcg chewable tablet aspirin 81 mg tablet,delayed 81 mg PO DAILY 10/30/24 02/02/25 release atorvastatin 80 mg tablet (Lipitor) 80 mg PO DAILY Lower cholesterol 10/30/24 02/02/25 dabigatran etexilate 150 mg capsule 150 mg PO .HOLD 02/02/25 Previous Rx's Medication Instructions Recorded triamcinolone acetonide 0.1 % 1 applic topical BID #30 grams 02/03/22 topical ointment blood-glucose meter (Blood Glucose #1 ea 05/04/22 Monitoring kit) blood sugar diagnostic (True #100 ea 09/17/22 Metrix Glucose Test Strip) dapagliflozin propanediol 10 mg 10 mg PO QAM #90 tabs 01/18/25 tablet (Farxiga) terazosin 5 mg capsule 5 mg PO DAILY #90 caps 01/18/25 Allergies Allergy/AdvReac Type Severity Reaction Status Date / Time ALCIDES Inhibitors Allergy Severe Anaphylaxis Verified 02/02/25 11:46 benazepril [From LOTENSIN] Allergy Severe Anaphylaxis Verified 02/02/25 11:46 Calcium Channel Blocking Allergy Severe Anaphylaxis Verified 02/02/25 11:46 Agent Dilt cephalexin [From KEFLEX] Allergy Severe Anaphylaxis Verified 02/02/25 11:46 ciprofloxacin [From CIPRO] Allergy Severe Anaphylaxis Verified 12/07/24 14:37 Opioids - Morphine Analogues AdvReac Severe Hallucinati Verified 12/07/24 14:37 ng Review of Systems Review of Systems Narrative: Pertinent positive and negative findings as per HPI Patient History Medical History (Updated 02/02/25 @ 13:49 by Mariel Lin MD) Chronic anticoagulation Imbalance Chronic right hip pain Lumbar pain Excessive cerumen in ear canal Acetabular fracture Acetabular fracture Risk for falls Atopic dermatitis Skin cancer screening Foreign body in auditory canal Colon cancer screening Aortic aneurysm Sleep apnea Plantar fasciitis Meningioma Asymmetrical sensorineural hearing loss Anticoagulated on warfarin Seborrhea Personal history of transient ischemic attack (TIA), and cerebral infarction without residual deficits Chalazion left lower eyelid Hypertension Surgical History (Updated 08/21/24 @ 13:01 by Ashli Escobar MD) Knee joint replacement status History of knee replacement Family History Father Stroke Social History household members: spouse Smoking Status: Former smoker alcohol intake: current substance use type: does not use additional 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 MENJIVAR 08/2023 Smoking Status: Former smoker alcohol intake frequency: 0-2 drinks per day Exam Initial Vital Signs Initial Vital Signs: Vital Signs Temperature 98.1 F 02/02/25 11:41 Pulse Rate 65 02/02/25 11:41 Respiratory Rate 18 02/02/25 11:41 Blood Pressure 146/65 H 02/02/25 11:41 Pulse Oximetry 96 02/02/25 11:41 Oxygen Delivery Method Room Air 02/02/25 11:41 General: Healthy appearing, slightly pale but in no acute distress. Able to give a complete and coherent history. HEENT: Moist mucous membranes, normal sclera with reactive pupils, Respiratory: Lungs are clear to auscultation, no wheezing no rales no rhonchi. Full and symmetrical air movement Cardiac: Regular rate and rhythm no murmurs no bruits Abdomen: Slightly distended, mild tenderness to palpation diffusely without rebound or guarding however he notes that palpation reproduces the low back pain of which he has been complaining Skin: Pale but otherwise Warm and dry, no rashes Neurologic: Grossly neurologically intact with no obvious asymmetries or abnormalities, pill roll tremor to the right upper extremity Extremities: No trauma, no lower extremity edema Psych: Cooperative, appropriate insight and affect Course Orders Ordered: ED Orders 02/02/25 11:43 EKG-12 Lead Stat 02/02/25 11:51 Complete Blood Count AUTO DIFF Stat Comprehensive Metabolic Panel Stat PRBC [Packed Cells] Stat PTT Partial Thromboplastin Jesus Stat Prothrombin Time INR Stat Type and Screen Stat 02/02/25 12:29 CT abdomen pelvis w con Stat Ondansetron HCl (Ondansetron 4 Mg/2 Ml Inj) 4 mg IV NOW PRN PRN Reason: Nausea And Vomiting Ondansetron HCl (Ondansetron 4 Mg Odt) 4 mg SL NOW PRN PRN Reason: Nausea And Vomiting Discontinued Medications Pantoprazole Sodium (Pantoprazole 40 Mg Vial) 80 mg IV NOW ONE Stop: 02/02/25 11:44 Last Admin: 02/02/25 12:34 Dose: 80 mg Documented By: LUCERO Pantoprazole Sodium (Pantoprazole 40 Mg Vial) 80 mg IV NOW ONE Stop: 02/02/25 12:13 Last Admin: 02/02/25 12:58 Dose: Not Given Documented By: SB Vital Signs Vital signs: Vital Signs - 8 hr 02/02/25 11:41 02/02/25 11:48 02/02/25 12:30 Temperature 98.1 F Pulse Rate 65 68 64 Respiratory Rate 18 16 15 Blood Pressure 146/65 H 128/60 132/60 Pulse Oximetry 96 100 98 Oxygen Delivery Method Room Air 02/02/25 13:32 Temperature 97.3 F L Pulse Rate 68 Respiratory Rate 18 Blood Pressure 131/60 Pulse Oximetry Oxygen Delivery Method Medical Decision Making Lab Data 02/02/25 11:51 02/02/25 11:51 Labs: Lab Results 02/02/25 Range/Units 11:51 WBC 11.0 (4.5-11.0) X10^3/uL RBC 2.21 L (4.5-5.9) X10^6/uL Hgb 6.6 L* (13.5-17.5) g/dL Hct 19.9 L* (41-53) % MCV 89.7 (80-100) fL MCH 29.9 (26-34) PG MCHC 33.3 (30-36) % RDW 15.8 H (11.6-14.8) % Plt Count 133 L (150-400) X10^3/uL Neut % (Auto) 75.9 H (50-75) % Lymph % (Auto) 10.3 L (25-40) % Andrews % (Auto) 11.9 (3-14) % Eos % (Auto) 1.5 L (2-4) % Baso % (Auto) 0.4 (0-2) % Neut # (Auto) 8400 H (3530-0732) /uL Lymph # (Auto) 1100 (8293-5109) /uL Andrews # (Auto) 1300 H (0-900) /uL Eos # (Auto) 200 (0-450) /uL Baso # (Auto) 0 (0-100) /uL PT 13.9 H (9.4-12.5) SECONDS INR 1.2 (0.9-1.3) APTT 46 H (25.1-36.5) SECONDS Sodium 135 L (137-145) mmol/L Potassium 4.7 (3.4-5.1) mmol/L Chloride 108 H (98-107) mmol/L Carbon Dioxide 21 L (22-32) mmol/L BUN 81 H (9-20) mg/dL Creatinine 1.34 H (0.66-1.25) mg/dL Estimated GFR 53 L (>60) mL/min BUN/Creatinine Ratio 60.4 H (6-22) Glucose 126 H (80-110) mg/dL Calcium 8.7 (8.4-10.2) mg/dL Total Bilirubin 0.3 (0.2-1.3) mg/dL AST 19 (17-59) IU/L ALT 15 (<50) IU/L Alkaline Phosphatase 65 (38-126) U/L Total Protein 5.6 L (6.3-8.2) g/dL Albumin 3.1 L (3.5-5.0) g/dL Globulin 2.5 (1.7-4.1) g/dL Albumin/Globulin Ratio 1.2 (1.0-2.8) Blood Type B Negative Antibody Screen Negative Crossmatch See Detail MDM Narrative Medical decision making narrative: CC: Exertional dyspnea, acute anemia Complicating co-morbidities: Presumed recurrent upper GI bleed with significant anemia likely a week ago, similar event in September of last year Data collected from: patient Social determinants of health that may influence the patients condition: Medical records reviewed: Primary care note from this morning, medical records from hospitalization in September of last year reviewed please see HPI. From discharge summary 10/17/2024, patient had an EGD 10/18 showed no source of bleeding, does show a medium hiatal hernia. Colonoscopy with only diverticulosis Differential considered: Recurrent upper GI bleeding, exertional dyspnea, abdominal aneurysm as a cause of his increased abdominal pain and low back pain Exam documented above, pertinent findings include: Alert and appropriate, somewhat pale, lungs are clear he is hemodynamically stable and euvolemic at this time. His belly is somewhat distended mildly tender no flank pain. No rebound or guarding Lab Test results independently reviewed as above. Pertinent findings: CBC shows acute anemia with hemoglobin at 6.6 and hemoglobin of 19.9. Platelets are at 133., white count is unremarkable Chemistries show mild kidney injury with INR 1.34 and a GFR of 53 Liver studies were unremarkable INR is 1.2, PTT is 46 Independently reviewed EKG: Sinus rhythm at a rate of 70 no acute ischemic Imaging studies independently reviewed: CT scan of the abdomen shows significant amount of stool and gas throughout the colon no obvious acute or life-threatening abnormalities otherwise noted Consultations: Care is reviewed with Dr. Dasilva, general surgeon he is willing to consult and consider upper or lower endoscopy if indicated. Treatments: Patient was given 80 mg of Protonix 4 mg of ondansetron and 2 units of packed red blood cells Discussion: 84-year-old gentleman who now has had what appears to be a fairly significant upper GI bleed last 1 was in September. Endoscopies both upper and lower at that time did not show active findings. Based on his history I believe the primary bleed for him was 4-5 days ago. At this point he is hemodynamically stable but symptomatic with exertional dyspnea and lower abdominal pain due to the significant anemia. Care is reviewed with Dr. Lira who will admit the patient. Surgery will consult decide most appropriate upper endoscopy or lower endoscopy interventions. Patient will be admitted to the Discharge Plan Departure Patient Disposition: Admitted As Inpatient Clinical Impression: Acute upper gastrointestinal bleeding, Symptomatic anemia Prescriptions: No Action (DME) blood-glucose meter [Blood Glucose Monitoring] Kit See Rx Instructions .Route Qty: 1 0RF Rx Instructions: Check sugars TID (DME) True Metrix Glucose Test Strip Strip See Rx Instructions .ROUTE .COMPLEX Qty: 100 1RF Dose Instruction: USE TO CHECK BLOOD SUGAR LEVEL THREE(3) TIMES DAILY Rx Instructions: USE TO CHECK BLOOD SUGAR LEVEL THREE(3) TIMES DAILY Farxiga 10 mg tablet 10 mg PO QAM Qty: 90 1RF terazosin 5 mg capsule 5 mg PO DAILY Qty: 90 1RF hydralazine 25 mg tablet 25 mg PO BID Rx Instructions: 2/day am pm carvedilol 3.125 mg tablet 3.2 mg PO BID Rx Instructions: must administer with a meal/food mecobalamin (vitamin B12) 1,000 mcg tablet,chewable 1,000 mcg PO DAILY Rx Instructions: 1000 mcg 1/day [id number]-copper-michele [Citracal-D3 Maximum Plus] 325 mg-12.5 mcg -2.75 mg tablet 1 tab PO DAILY Rx Instructions: 1/day dabigatran etexilate 150 mg capsule 150 mg PO .HOLD Rx Instructions: restarted by cardiology losartan 50 mg tablet 50 mg PO BID acetaminophen 500 mg tablet 500 mg PO Q6H PRN (Reason: Breakthrough Pain, Mild) aliskiren [Tekturna] 300 mg tablet 300 mg PO DAILY Rx Instructions: 1/day am triamcinolone acetonide 0.1 % ointment 1 applic topical BID Qty: 30 0RF Rx Instructions: use sparingly; do not use more than two weeks atorvastatin [Lipitor] 80 mg tablet 80 mg PO DAILY Patient Comments: Changed from simvastatin during hospitalization aspirin 81 mg tablet,delayed release (DR/EC) 81 mg PO DAILY Referrals: Ashli Escobar MD [Primary Care Provider] -
[2025-02-02 12:10] LABS: Add Manual Diff / Slide Review NO; Basophils Absolute Auto 0 /uL (0-100); Basophils Percent Auto 0.4 % (0-2); Eosinophils Absolute Auto 200 /uL (0-450); Eosinophils Percent Auto 1.5 % (2-4); Lymphocytes Absolute Auto 1100 /uL (1100-4500); Lymphocytes Percent Auto 10.3 % (25-40); Mean Corpuscular HGB Conc 33.3 % (30-36); Mean Corpuscular Hemoglobin 29.9 PG (26-34); Mean Corpuscular Volume 89.7 fL (80-100); Monocytes Absolute Auto 1300 /uL (0-900); Monocytes Percent Auto 11.9 % (3-14); Neutrophils Absolute Auto 8400 /uL (1500-7000); Neutrophils Percent Auto 75.9 % (50-75); Platelet Count 133 X10^3/uL (150-400); Red Blood Cell Count 2.21 X10^6/uL (4.5-5.9); Red Cell Distribution Width 15.8 % (11.6-14.8)
[2025-02-02 12:11] LABS: INR 1.2 (0.9-1.3); Prothrombin Time 13.9 SECONDS (9.4-12.5)
[2025-02-02 12:12] LABS: Hematocrit 19.9 % (41-53); Hemoglobin 6.6 g/dL (13.5-17.5)
[2025-02-02 12:14] LABS: PTT Partial Thromboplastin Tim 46 SECONDS (25.1-36.5)
[2025-02-02 12:16] LABS: Alanine Aminotransferase 15 IU/L (<50); Albumin 3.1 g/dL (3.5-5.0); Albumin Globulin Ratio 1.2 (1.0-2.8); Alkaline Phosphatase 65 U/L (38-126); Aspartate Aminotransferase 19 IU/L (17-59); BUN Creatinine Ratio 60.4 (6-22); Bilirubin Total 0.3 mg/dL (0.2-1.3); Blood Urea Nitrogen 81 mg/dL (9-20); Calcium 8.7 mg/dL (8.4-10.2); Carbon Dioxide 21 mmol/L (22-32); Chloride 108 mmol/L (98-107); Estimated Glomerular Filt Rate 53 mL/min (>60); Globulin 2.5 g/dL (1.7-4.1); Glucose 126 mg/dL (80-110); HEMOLYSIS < 15 (0-50); Potassium 4.7 mmol/L (3.4-5.1); Sodium 135 mmol/L (137-145); Total Protein 5.6 g/dL (6.3-8.2)
--- NOTE | 2025-02-02 12:29 | DI.CT.S_ITS ---
PROCEDURE: CT ABDOMEN PELVIS W CON INDICATIONS: abdominal pain, distention TECHNIQUE: After the administration of intravenous contrast, axial sections acquired from the lung bases to the pubic symphysis. Coronal and sagittal reformats were performed. For radiation dose reduction, the following was used: automated exposure control, adjustment of mA and/or kV according to patient size. COMPARISON: [facility], CT, CT PEL WO CON, 09/25/2022, 13:07. FINDINGS: Image quality: Diagnostic. Lower Chest: No significant findings. ABDOMEN: Liver: No solid mass. Gallbladder: No radiopaque gallstones or wall thickening. Biliary ducts: No biliary dilation. Pancreas: No ductal dilation. Spleen: Size is within normal limits. Adrenal Glands: No adrenal nodules. Kidneys and Ureters: No hydronephrosis. No solid mass. No complex renal cystic lesion which requires follow up. Stomach and Bowel: Normal colonic caliber, without significant wall thickening. Peritoneum: No abnormal intraperitoneal fluid. No free air. Ventral Wall: No significant ventral hernia. Abdominal Nodes: No retroperitoneal or mesenteric adenopathy by size criteria. Vessels: Aorta and inferior vena cava are normal in size but there is prominent atherosclerotic calcifications involving the aorta and its main tributaries circumferentially. Additionally, at the mid to distal abdominal aorta a previously present short segmental dissection is seen, partially visualized by prior CT scanning 09/25/22 which was a noncontrast study. The current study is contrast-enhanced and shows blood flow on both the margins of the intraluminal dissection flap which is calcified, chronically. The maximal aortic transverse caliber in this area is 2.7 cm, similar to the prior pelvic CT that included the lower margin of the finding.. PELVIS: Pelvic Organs: Unremarkable. Bladder: No bladder wall thickening, accounting for underdistention. Pelvic Nodes: No enlarged lymph nodes. Miscellaneous: No inguinal hernias are seen. Bones: No aggressive osseous abnormality. IMPRESSION: 1. Through the lower chest, abdomen and pelvis no acute disease is found. Gsks-da-orziwanp colonic obstipation is present. 2. 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 Maximal aortic caliber in this area is 2.7 cm, ectatic but not aneurysmal. Only the lowest margin of this abnormality was seen on the prior CT scan, a pelvic CT study. 3. As discussed above there is quite pronounced circumferential atherosclerotic calcific plaquing in this patient through the aorta and its main tributaries. No occlusion is identified, however. Dictated by: Edmund Nicole M.D. on 02/02/2025 at 13:25 Approved by: Edmund Nicole M.D. on 02/02/2025 at 13:38
[2025-02-02] MEDS: PANTOPRAZOLE 40 MG VIAL 80 MG IV (12:34)
--- NOTE | 2025-02-02 14:42 | P.HP_ITS ---
History of Present Illness History of Present Illness Date Patient Seen: 02/02/25 Time Patient Seen: 14:15 Date of Onset of Symptoms: 01/27/25 Chief complaint: GI Bleed Narrative: 84-year-old man under the primary care of Dr. Ashli Escobar reports that 5 or 6 days ago he experienced a large explosive diarrheal grossly bloody bowel movement, and has had little stool output since then. His noticed that there was blood in the toilet 3 days ago and reports she stopped his Pradaxa, which he takes for paroxysmal atrial fibrillation, as well as aspirin. He had history of gastrointestinal bleeding incidentally noted on hospitalization at [facility] in September for a fall with head injury. His hemoglobin was 5.7 at that time and he was transfused 3 units of packed red blood cells, undergoing EGD on 10/18/2021 for showing a medium-sized hiatal hernia, otherwise normal stomach and duodenal, and a possible esophageal bleeding source. A colonoscopy in September 2022 reported only nonbleeding diverticulosis. A brain MRI at that time showed an acute left lacunar infarct and Neurology was consulted and recommended aspirin and high-intensity statin therapy, and that his stroke was unlikely to have been cardioembolic. Following discharge he was later restarted on Pradaxa and had done well until this week without apparent bleeding. They had been in discussion with Cardiology about a possible Watchman device. He takes aspirin 81 mg daily, but has stopped this and Pradaxa 3 days ago, and denies NSAID use or other anti-inflammatories. He has not had a bowel movement in the past 3-6 days. He denies abdominal pain, nausea, vomiting or other distressing symptoms at this time.He also has diabetes with his last hemoglobin A1c 6.5% on 12/07/2024. He states his blood sugars are generally well controlled. [facility], LATER [facility] Medical History Acetabular fracture Acetabular fracture Anticoagulated on warfarin Aortic aneurysm Asymmetrical sensorineural hearing loss Atopic dermatitis Chalazion left lower eyelid Chronic anticoagulation Chronic right hip pain Colon cancer screening Excessive cerumen in ear canal Foreign body in auditory canal Hypertension Imbalance Lumbar pain Meningioma Personal history of transient ischemic attack (TIA), and cerebral infarction without residual deficits Plantar fasciitis Risk for falls Seborrhea Skin cancer screening Sleep apnea Surgical History History of knee replacement Knee joint replacement status Family History Father Stroke Other Anemia Frequent falls Social History household members: spouse Smoking Status: Former smoker alcohol intake: current substance use type: does not use 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 MENJIVAR 08/2023 Meds Home Medications and Allergies Home Medications Medication Instructions Recorded Confirmed Type acetaminophen 500 mg tablet 500 mg PO Q6H PRN Breakthrough 03/18/21 02/02/25 History Pain, Mild losartan 50 mg tablet 50 mg PO BID 03/18/21 02/02/25 History triamcinolone acetonide 0.1 % 1 applic topical BID #30 grams 02/03/22 02/02/25 Rx topical ointment blood-glucose meter (Blood Glucose #1 ea 05/04/22 02/02/25 Rx Monitoring kit) blood sugar diagnostic (True #100 ea 09/17/22 02/02/25 Rx Metrix Glucose Test Strip) aliskiren 300 mg tablet (Tekturna) 300 mg PO DAILY 03/10/23 02/02/25 History calcium 325 mg-vit D3 12.5 1 tab PO DAILY 03/10/23 02/02/25 History mcg-zinc 2.75 [id number] tablet (Citracal-D3 Maximum Plus) carvedilol 3.125 mg tablet 3.2 mg PO BID 03/10/23 02/02/25 History hydralazine 25 mg tablet 25 mg PO BID 03/10/23 02/02/25 History mecobalamin (vitamin B12) 1,000 1,000 mcg PO DAILY 03/10/23 02/02/25 History mcg chewable tablet aspirin 81 mg tablet,delayed 81 mg PO DAILY 10/30/24 02/02/25 History release atorvastatin 80 mg tablet (Lipitor) 80 mg PO DAILY Lower cholesterol 10/30/24 02/02/25 History dapagliflozin propanediol 10 mg 10 mg PO QAM #90 tabs 01/18/25 02/02/25 Rx tablet (Farxiga) terazosin 5 mg capsule 5 mg PO DAILY #90 caps 01/18/25 02/02/25 Rx dabigatran etexilate 150 mg capsule 150 mg PO .HOLD 02/02/25 History Allergies Allergy/AdvReac Type Severity Reaction Status Date / Time ALCIDES Inhibitors Allergy Severe Anaphylaxis Verified 02/02/25 11:46 benazepril [From LOTENSIN] Allergy Severe Anaphylaxis Verified 02/02/25 11:46 Calcium Channel Blocking Allergy Severe Anaphylaxis Verified 02/02/25 11:46 Agent Dilt cephalexin [From KEFLEX] Allergy Severe Anaphylaxis Verified 02/02/25 11:46 ciprofloxacin [From CIPRO] Allergy Severe Anaphylaxis Verified 12/07/24 14:37 Opioids - Morphine Analogues AdvReac Severe Hallucinati Verified 12/07/24 14:37 ng Review of Systems Review of Systems ROS: Yes All systems reviewed with the patient and are negative except as otherwise documented Exam Vital Signs (past 8 hours): - 02/02/25 11:41 02/02/25 11:48 02/02/25 12:30 Temperature 98.1 F Pulse Rate 65 68 64 Respiratory Rate 18 16 15 Blood Pressure 146/65 H 128/60 132/60 Pulse Oximetry 96 100 98 Oxygen Delivery Method Room Air 02/02/25 13:24 02/02/25 13:28 02/02/25 13:30 Temperature Pulse Rate 68 67 67 Respiratory Rate 18 16 15 Blood Pressure 115/64 120/57 L 131/60 Pulse Oximetry 99 98 98 Oxygen Delivery Method 02/02/25 13:32 02/02/25 13:51 02/02/25 13:52 Temperature 97.3 F L 97.9 F Pulse Rate 68 63 65 Respiratory Rate 18 16 24 Blood Pressure 131/60 114/56 L 114/56 L Pulse Oximetry 97 Oxygen Delivery Method Oxygen Delivery Method Room Air Narrative Exam Narrative: GENERAL: This is a well-nourished, well-developed pale patient, in no apparent distress. HEAD: Atraumatic. Normocephalic. No temporal or scalp tenderness. EYES: Pupils equal round and reactive. Extraocular motions intact. No scleral icterus. No injection or drainage. ENT: Mucous membranes pink and moist. NECK: Trachea midline. No JVD, bruits or lymphadenopathy. Supple, nontender, no meningeal signs. CARDIOVASCULAR: Regular rate and rhythm without murmurs, gallops, or rubs. RESPIRATORY: Clear to auscultation. GASTROINTESTINAL: Abdomen soft, non-tender, nondistended. EXTREMITIES: No clubbing, cyanosis, or edema. BACK: Nontender without deformity or crepitance. No flank tenderness. NEUROLOGIC: Alert, oriented, speech fluent, full upper and lower motor strength, no focal deficits evident. DERMATOLOGIC: No rashes or skin lesions. Objective ECG Impression: Normal sinus rhythm at 70 beats per minute, no acute ischemic changes. Imaging Abdomen pelvis CT with contrast:: Radiologist's impression: 1. Through the lower chest, abdomen and pelvis no acute disease is found. [id number] colonic obstipation is present. 2. 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 Maximal aortic caliber in this area is 2.7 cm, ectatic but not aneurysmal. Only the lowest margin of this abnormality was seen on the prior CT scan, a pelvic CT study. 3. As discussed above there is quite pronounced circumferential atherosclerotic calcific plaquing in this patient through the aorta and its main tributaries. No occlusion is identified, however. Labs 02/02/25 11:51 02/02/25 11:51 Labs: Laboratory Results - last 24 hr 02/02/25 11:51 WBC 11.0 RBC 2.21 L Hgb 6.6 L* Hct 19.9 L* MCV 89.7 MCH 29.9 MCHC 33.3 RDW 15.8 H Plt Count 133 L Neut % (Auto) 75.9 H Lymph % (Auto) 10.3 L Kimball % (Auto) 11.9 Eos % (Auto) 1.5 L Baso % (Auto) 0.4 Neut # (Auto) 8400 H Lymph # (Auto) 1100 Kimball # (Auto) 1300 H Eos # (Auto) 200 Baso # (Auto) 0 PT 13.9 H INR 1.2 APTT 46 H Sodium 135 L Potassium 4.7 Chloride 108 H Carbon Dioxide 21 L BUN 81 H Creatinine 1.34 H Estimated GFR 53 L BUN/Creatinine Ratio 60.4 H Glucose 126 H Calcium 8.7 Total Bilirubin 0.3 AST 19 ALT 15 Alkaline Phosphatase 65 Total Protein 5.6 L Albumin 3.1 L Globulin 2.5 Albumin/Globulin Ratio 1.2 Blood Type B Negative Antibody Screen Negative Crossmatch See Detail Assessment & Plan Assessment & Plan narrative: 1. Severe recurrent anemia, likely due to acute recurrent gastrointestinal bleeding. Negative workup with EGD in September 2024 and reassuring colonoscopy in September 2022. Recommend repeat upper endoscopy given severity of anemia and use of chronic anticoagulation (off for the past 3 days). Consider occult peptic ulcer disease or esophagitis, small bowel AVMs noting severe aortoiliac atherosclerosis. Doubt aortoenteric fistula. Surgical input in collaboration appreciated. Transfuse 2 units of packed red blood cells and monitor. 2. Acute recurrent gastrointestinal bleeding. Obtain EGD. Consider repeat colonoscopy, and/or further imaging and/or capsule endoscopy. This can be deferred to outpatient evaluation if he remained stable during hospitalization. 3. Acute kidney injury, likely due to volume depletion, superimposed on CKD 3A. Monitor with hydration. 4. Paroxysmal atrial fibrillation. Currently in sinus rhythm. Monitor on telemetry. 5. Chronic anticoagulation. Held for the past 3 days. Recommend remaining off anticoagulation at this point until source of bleeding is identified. Consider outpatient Watchman device. 6. Cerebrovascular disease. Hold aspirin at this point, noting September hospitalization with a lacunar infarct due to atherosclerotic vascular disease. Continue high-dose statin therapy. 7. Diabetes mellitus, type 2. Monitor with sliding scale coverage. 8. Hypertension. Continue carvedilol and hydralazine. Hold losartan and aliskiren pending clinical course and normalization of renal function. 8. Hyperlipidemia. Continue high-dose statin therapy. 9. Chronic kidney disease, stage IIIA. Monitor. 10. BPH. Continue terazosin. 11. DVT prophylaxis: Sequential compression devices. 12. Code status: Full code. This is reviewed with the patient on admission. He has advance directives completed otherwise. His surrogate decision maker is his Aminta. Care was reviewed with his by phone on admission. Plan: -2 units packed red blood cells -IV hydration -EGD -surgical consultation appreciated -serial hematocrits and monitor renal function -remain off aspirin and Pradaxa -hold losartan and aliskiren at this point -continue routine medications otherwise including statin -SCDs -full code The patient is admitted inpatient status as she will require at least 2 midnights of inpatient level care. Quality MIPS - Admit I confirm the patient?s Advance Care Plan is present, Code status is documented, Surrogate decision maker is in patient?s record [If Yes, STOP here]: Yes [facility] - Meds 'Current medications' to include all prescriptions, [id number] products, herbals, cannabis/cannabidiol products, and vitamin/mineral/dietary (nutritional) supplements. I have utilized all available resources to obtain, update, or review the patient?s current medications. [If Yes, STOP here]: Yes [employer] Document charge(s): No Charge Codes Initial inpatient/observation care: [id number]
[2025-02-02] MEDS: DEXTROSE 5%-0.9% NS 1,000 ML 100 ML IV (15:45)
--- NOTE | 2025-02-02 16:17 | PC.NURSE ---
Addendum entered by Adelaida Wright R.N. 02/02/25 17:55: Pt back in room 226 at approximately 1740, forgetful. Connected to monitoring equipment, bed alarm active, call light within reach. Care ongoing. Original Note: Pt arrived to ICU rm 226 at approximately 1525. Pt able to SBA to bed, A&O to self, situation, place. Provider at bedside. Pt transferred to preop by VALENTINA Betancur at 1617, 2nd unit of blood handed off to VALENTINA Betancur to begin in preop.
--- NOTE | 2025-02-02 16:21 | P.CONS_ITS ---
History of Present Illness Consult details Date Patient Seen: 02/02/25 Time Patient Seen: 10:00 Chief complaint: GI Bleed Reason for consult: Anemia Narrative: 84-year-old man under the primary care of Dr. Ashli Escobar reports that 5 or 6 days ago he experienced a large explosive diarrheal grossly bloody bowel movement, and has had little stool output since then. His noticed that there was blood in the toilet 3 days ago and reports she stopped his Pradaxa, which he takes for paroxysmal atrial fibrillation, as well as aspirin. He had history of gastrointestinal bleeding incidentally noted on hospitalization at [facility] in September for a fall with head injury. His hemoglobin was 5.7 at that time and he was transfused 3 units of packed red blood cells, undergoing EGD on 10/18/2021 for showing a medium-sized hiatal hernia, otherwise normal stomach and duodenal, and a possible esophageal bleeding source. A colonoscopy in September 2022 reported only nonbleeding diverticulosis. A brain MRI at that time showed an acute left lacunar infarct and Neurology was consulted and recommended aspirin and high-intensity statin therapy, and that his stroke was unlikely to have been cardioembolic. Following discharge he was later restarted on Pradaxa and had done well until this week without apparent bleeding. They had been in discussion with Cardiology about a possible Watchman device. He takes aspirin 81 mg daily, but has stopped this and Pradaxa 3 days ago, and denies NSAID use or other anti-inflammatories. He has not had a bowel movement in the past 3-6 days. He denies abdominal pain, nausea, vomiting or other distressing symptoms at this time.He also has diabetes with his last hemoglobin A1c 6.5% on 12/07/2024. He states his blood sugars are generally well controlled. Meds Home Medications and Allergies Home Medications Medication Instructions Recorded Confirmed Type acetaminophen 500 mg tablet 500 mg PO Q6H PRN Breakthrough 03/18/21 02/02/25 History Pain, Mild losartan 50 mg tablet 50 mg PO BID 03/18/21 02/02/25 History triamcinolone acetonide 0.1 % 1 applic topical BID #30 grams 02/03/22 02/02/25 Rx topical ointment blood-glucose meter (Blood Glucose #1 ea 05/04/22 02/02/25 Rx Monitoring kit) blood sugar diagnostic (True #100 ea 09/17/22 02/02/25 Rx Metrix Glucose Test Strip) aliskiren 300 mg tablet (Tekturna) 300 mg PO DAILY 03/10/23 02/02/25 History calcium 325 mg-vit D3 12.5 1 tab PO DAILY 03/10/23 02/02/25 History mcg-zinc 2.75 nw-[id number]-[id number] tablet (Citracal-D3 Maximum Plus) carvedilol 3.125 mg tablet 3.2 mg PO BID 03/10/23 02/02/25 History hydralazine 25 mg tablet 25 mg PO BID 03/10/23 02/02/25 History mecobalamin (vitamin B12) 1,000 1,000 mcg PO DAILY 03/10/23 02/02/25 History mcg chewable tablet aspirin 81 mg tablet,delayed 81 mg PO DAILY 10/30/24 02/02/25 History release atorvastatin 80 mg tablet (Lipitor) 80 mg PO DAILY Lower cholesterol 10/30/24 02/02/25 History dapagliflozin propanediol 10 mg 10 mg PO QAM #90 tabs 01/18/25 02/02/25 Rx tablet (Farxiga) terazosin 5 mg capsule 5 mg PO DAILY #90 caps 01/18/25 02/02/25 Rx dabigatran etexilate 150 mg capsule 150 mg PO .HOLD 02/02/25 History Allergies Allergy/AdvReac Type Severity Reaction Status Date / Time ALCIDES Inhibitors Allergy Severe Anaphylaxis Verified 02/02/25 11:46 benazepril [From LOTENSIN] Allergy Severe Anaphylaxis Verified 02/02/25 11:46 Calcium Channel Blocking Allergy Severe Anaphylaxis Verified 02/02/25 11:46 Agent Dilt cephalexin [From KEFLEX] Allergy Severe Anaphylaxis Verified 02/02/25 11:46 ciprofloxacin [From CIPRO] Allergy Severe Anaphylaxis Verified 12/07/24 14:37 Opioids - Morphine Analogues AdvReac Severe Hallucinati Verified 12/07/24 14:37 ng Review of Systems Review of Systems ROS: Yes All systems reviewed with the patient and are negative except as otherwise documented Exam Vital Signs (past 8 hours): - 02/02/25 11:41 02/02/25 11:48 02/02/25 12:30 Temperature 98.1 F Pulse Rate 65 68 64 Respiratory Rate 18 16 15 Blood Pressure 146/65 H 128/60 132/60 Pulse Oximetry 96 100 98 Oxygen Delivery Method Room Air 02/02/25 13:24 02/02/25 13:28 02/02/25 13:30 Temperature Pulse Rate 68 67 67 Respiratory Rate 18 16 15 Blood Pressure 115/64 120/57 L 131/60 Pulse Oximetry 99 98 98 Oxygen Delivery Method 02/02/25 13:32 02/02/25 13:51 02/02/25 13:52 Temperature 97.3 F L 97.9 F Pulse Rate 68 63 65 Respiratory Rate 18 16 24 Blood Pressure 131/60 114/56 L 114/56 L Pulse Oximetry 97 Oxygen Delivery Method 02/02/25 14:00 02/02/25 14:30 02/02/25 14:31 Temperature Pulse Rate 62 60 60 Respiratory Rate 19 15 15 Blood Pressure 114/56 L 133/60 Pulse Oximetry 97 96 98 Oxygen Delivery Method 02/02/25 15:17 Temperature 98.3 F Pulse Rate 64 Respiratory Rate 20 Blood Pressure 122/57 L Pulse Oximetry Oxygen Delivery Method Oxygen Delivery Method Room Air Narrative Exam Narrative: Gen: NAD, sitting comfortably in bed, appears well HEENT: Sclera are anicteric, head is normocephalic and atraumatic, trachea is midline. CV: RRR, no JVD Resp: clear to auscultation bilaterally, equal chest wall movement bilaterally Abd: soft, nontender, normoactive bowel sounds Ext: no edema, full range of motion Neuro: Cranial nerves II-XII grossly intact, no focal deficits Skin: No erythema or ecchymosis Objective Labs 02/02/25 11:51 02/02/25 11:51 Labs: Laboratory Results - last 24 hr 02/02/25 11:51 WBC 11.0 RBC 2.21 L Hgb 6.6 L* Hct 19.9 L* MCV 89.7 MCH 29.9 MCHC 33.3 RDW 15.8 H Plt Count 133 L Neut % (Auto) 75.9 H Lymph % (Auto) 10.3 L Haskell % (Auto) 11.9 Eos % (Auto) 1.5 L Baso % (Auto) 0.4 Neut # (Auto) 8400 H Lymph # (Auto) 1100 [place] # (Auto) 1300 H Eos # (Auto) 200 Baso # (Auto) 0 PT 13.9 H INR 1.2 APTT 46 H Sodium 135 L Potassium 4.7 Chloride 108 H Carbon Dioxide 21 L BUN 81 H Creatinine 1.34 H Estimated GFR 53 L BUN/Creatinine Ratio 60.4 H Glucose 126 H Calcium 8.7 Total Bilirubin 0.3 AST 19 ALT 15 Alkaline Phosphatase 65 Total Protein 5.6 L Albumin 3.1 L Globulin 2.5 Albumin/Globulin Ratio 1.2 Blood Type B Negative Antibody Screen Negative Crossmatch See Detail [facility] Medical History Chronic anticoagulation Imbalance Chronic right hip pain Lumbar pain Excessive cerumen in ear canal Acetabular fracture Acetabular fracture Risk for falls Atopic dermatitis Skin cancer screening Foreign body in auditory canal Colon cancer screening Aortic aneurysm Sleep apnea Plantar fasciitis Meningioma Asymmetrical sensorineural hearing loss Anticoagulated on warfarin Seborrhea Personal history of transient ischemic attack (TIA), and cerebral infarction without residual deficits Chalazion left lower eyelid Hypertension Surgical History Knee joint replacement status History of knee replacement Family History Father Stroke Other Anemia Frequent falls Social History household members: spouse Tobacco & Substance Use Smoking Status: Former smoker alcohol intake: current substance use type: does not use Additional Social History 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 MENJIVAR 08/2023 Assessment & Plan Assessment and plan (1) Acute upper gastrointestinal bleeding: Status: Acute Assessment & Plan narrative: Patient is currently getting transfused, Pradaxa is held. We will perform an EGD today given the previous findings from his last EGD. No plan for colonoscopy on this hospitalization given a normal colonoscopy last time and no signs of blood per rectum for several days. If he continues to be anemic and the EGD is negative, we can order a tagged red blood cell scan. If he is not actively bleeding that may still be negative and would recommend outpatient capsule endoscopy to be ordered by outpatient Gastroenterology. Time-Based Coding :: [TOTAL MINUTES] spent with patient and on the chart (including review of chart, obtaining history, exam, reviewing outside data, placing orders, documenting exam and treatment plan, and counseling patient) on [DATE]. PROFEE Charge Codes Inpatient or Observation consultation: [id number]
[2025-02-02] MEDS: LACTATED RINGERS 1,000 ML 42 ML IV (16:41)
--- NOTE | 2025-02-02 17:14 | PM.OP.EGD ---
Operative Date/Time/Diagnoses Date of procedure: 02/02/25 Time of procedure: 17:14 Pre-op diagnosis: Acute blood loss anemia Post-op diagnosis: other (Normal upper scope) Procedure & Clinicians Study performed: EGD Same procedure as scheduled: Yes Indications: Anemia Surgeon: Deric Dasilva Procedure Notes SCOAP/Timeout: Performed Procedure in detail: Consent was obtained. Patient was brought to the endoscopy suite. Time-out was performed. Bite block was placed. Gastroscope was inserted through the bite block to the 2nd portion of the duodenal. There was no evidence of bleeding or hematin anywhere throughout the upper GI tract. There was no evidence of gastritis or ulcers. Retroflexed view showed a small hiatal hernia without any evidence of erosions or ulcerations. GE junction was normal in appearance located 40 cm from the incisors. The esophagus was normal, no evidence of varices or webs. Patient tolerated the procedure well was transferred to PACU stable condition for anticipated continue hospital stay. Sedation minutes: 3 Specimen(s): none sent Complications: none Impression: normal EGD Post-procedure Recommendations: Other recommendation(s) Plan for aftercare: observation, possible tagged RBC scan if evidence of active bleeding. Follow up: as needed Disposition: PACU
[2025-02-02 17:44] LABS: MRSA (Nasal) PCR NOT DETECTED (Not Detect)
[2025-02-02 20:22] LABS: Hematocrit 24.1 % (41-53); Hemoglobin 8.3 g/dL (13.5-17.5)
[2025-02-02] MEDS: HYDRALAZINE 25 MG TABLET PO (21:28)
[2025-02-02] MEDS: ATORVASTATIN 20 MG TABLET 80 MG PO (21:28)
[2025-02-02] MEDS: PANTOPRAZOLE 40 MG VIAL IV (21:28)
[2025-02-02] MEDS: carvediloL 3.125 MG TABLET PO (21:30)
[2025-02-02] MEDS: SODIUM CHLORIDE 0.9% FLUSH 10 ML IV (21:30)
[2025-02-02] MEDS: ACETAMINOPHEN 325 MG TABLET 650 MG PO (21:32)
[2025-02-03] VITALS (56 sets, daily range): BP systolic 94–164; BP diastolic 51–116; PULSE 52–98; RESP 14–35; TEMP 36.3–36.9; O2SAT 98
[2025-02-03 05:06] LABS: Add Manual Diff / Slide Review NO; Basophils Absolute Auto 0 /uL (0-100); Basophils Percent Auto 0.5 % (0-2); Eosinophils Absolute Auto 200 /uL (0-450); Eosinophils Percent Auto 2.3 % (2-4); Hematocrit 23.3 % (41-53); Hemoglobin 8.1 g/dL (13.5-17.5); Lymphocytes Absolute Auto 1100 /uL (1100-4500); Lymphocytes Percent Auto 13.9 % (25-40); Mean Corpuscular HGB Conc 34.6 % (30-36); Mean Corpuscular Hemoglobin 30.3 PG (26-34); Mean Corpuscular Volume 87.4 fL (80-100); Monocytes Absolute Auto 1100 /uL (0-900); Monocytes Percent Auto 13.4 % (3-14); Neutrophils Absolute Auto 5600 /uL (1500-7000); Neutrophils Percent Auto 69.9 % (50-75); Platelet Count 111 X10^3/uL (150-400); Red Blood Cell Count 2.67 X10^6/uL (4.5-5.9); Red Cell Distribution Width 15.6 % (11.6-14.8)
[2025-02-03 05:20] LABS: BUN Creatinine Ratio 55.1 (6-22); Blood Urea Nitrogen 70 mg/dL (9-20); Calcium 8.5 mg/dL (8.4-10.2); Carbon Dioxide 20 mmol/L (22-32); Chloride 111 mmol/L (98-107); Estimated Glomerular Filt Rate 56 mL/min (>60); Glucose 146 mg/dL (80-110); HEMOLYSIS < 15 (0-50); Sodium 138 mmol/L (137-145)
[2025-02-03] MEDS: DEXTROSE 5%-0.9% NS 1,000 ML 100 ML IV (05:22)
[2025-02-03] MEDS: PANTOPRAZOLE 40 MG VIAL IV ×2 (08:28→19:53)
[2025-02-03] MEDS: HYDRALAZINE 25 MG TABLET PO ×2 (08:28→19:54)
[2025-02-03] MEDS: carvediloL 3.125 MG TABLET PO ×2 (08:28→19:54)
[2025-02-03] MEDS: SODIUM CHLORIDE 0.9% FLUSH 10 ML IV ×2 (08:28→20:03)
[2025-02-03] MEDS: INSULIN LISPRO 100 UNIT/ML 3ML VIAL SUBCUT ×2 (08:28→20:03)
--- NOTE | 2025-02-03 09:33 | CM.DANOTE ---
Patient is an 84 yo male who was admitted 02/02/25 for Acute Anemia/GI Bleed. Pt has MCR and BCBS OUT [employer] for insurance and his PCP is Ashli Escobar at [facility]. EMR was reviewed. Per , pt with hx of fall in Sep 2024 with bleed and was airlifted to [facility] in [place] and now admitted for Acute Anemia and poss GI bleed and received 2 units of blood. Per Surgeon, pt's EGD showed no active bleed and normal. Can resume regular diet. Per RN, pt has been SBA to bathroom and no current need for PT eval. SW met bedside with pt and explained role and pt very talkative and confirms he lives at home on [address] with his Aminta who is also his POA and pt is mostly independent at baseline with ADLs. Pt has hx of 4 falls in the last 4 years and has now gotten grab bars throughout the house, bought a very high level walker, has multiple canes for use throughout the house and now takes his time when getting up or transitioning throughout the house. Pt states they have very supportive and helpful neighbors as well and spouse is very active and can assist as needed. Pt denies any recent hx of HH or SNF and confirms his preference is to d/c home when stable and spouse will provide transport back home at d/c but knowing ahead of time would help with the ferry system. arrived bedside and spoke to pt and also spouse via speaker phone and plan is likely d/c tomorrow Sun if pt tolerates his diet and labs stable. SW spoke to spouse and she confirms that she already made reservations to take the 0900 ferry to [place] and made reservations for the 1430 ferry back to [place] and she and friend will provide transport tomorrow. Plan: SW to follow for plan of d/c tomorrow Sun via spouse POV to catch the 1430 back to [facility]. MOUNIKA Odom Discharge Planning/Care Management CM Discharge Assessment Start: 02/03/25 09:31 Freq: Status: Active Protocol: Document 02/03/25 09:32 BF (Rec: 02/03/25 09:33 BF [id number]) Discharge Planning Assessment Assigned Director Of Pupil Personnel Program MOUNIKA Mosquera DPOA/Assigned Designee Name spouse Aminta Contact Information [phone] Advance Directives? Yes Advance Directives on File No History Provided By Patient,Significant Other, Medical Record Has Patient been admitted in last 30 No days? Prior Living Arrangements House Household Members spouse Type of transporation used prior to Drives own vehicle admit Independent with ADL's Yes Is patient alert and oriented? Yes: somewhat forgetful Needs Assistance With Managing Medications,Home Chores / Shopping Caregiver for Another No DME Already Rented / Owned FWW / Walker,Cane Comment Lots of grab bars in the house as well Barriers to Discharge No Discharge Plan Home Transportation Arrangement Spouse POV via [employer] Whiteboard Updated in Patient Room with Yes name and ext. # of Director Of Pupil Personnel Program Review Status In Process Please Provide Date Initial DC 02/03/25 Assessment Was Performed Next Review Type Continued Stay Review
[2025-02-03] MEDS: FERROUS SULFATE 325 MG TABLET PO (10:53)
[2025-02-03] MEDS: polyethylene glycoL 3350 17 GM POWD.PACK PO (10:53)
[2025-02-03] MEDS: MAGNESIUM HYDROXIDE 30 ML UDC PO (10:54)
--- NOTE | 2025-02-03 11:29 | P.PN_ITS ---
Subjective Subjective Date Patient Seen: 02/03/25 Time Patient Seen: 07:50 Interval history: Narrative: 84-year-old man under the primary care of Dr. Ashli Escobar reports that 5 or 6 days ago he experienced a large explosive diarrheal grossly bloody bowel movement, and has had little stool output since then. His noticed that there was blood in the toilet 3 days ago and reports she stopped his Pradaxa, which he takes for paroxysmal atrial fibrillation, as well as aspirin. He had history of gastrointestinal bleeding incidentally noted on hospitalization at [facility] in September for a fall with head injury. His hemoglobin was 5.7 at that time and he was transfused 3 units of packed red blood cells, undergoing EGD on 10/18/2021 for showing a medium-sized hiatal hernia, otherwise normal stomach and duodenal, and a possible esophageal bleeding source. A colonoscopy in September 2022 reported only nonbleeding diverticulosis. A brain MRI at that time showed an acute left lacunar infarct and Neurology was consulted and recommended aspirin and high-intensity statin therapy, and that his stroke was unlikely to have been cardioembolic. Following discharge he was later restarted on Pradaxa and had done well until this week without apparent bleeding. They had been in discussion with Cardiology about a possible Watchman device. He takes aspirin 81 mg daily, but has stopped this and Pradaxa 3 days ago, and denies NSAID use or other anti-inflammatories. He has not had a bowel movement in the past 3-6 days. He denies abdominal pain, nausea, vomiting or other distressing symptoms at this time.He also has diabetes with his last hemoglobin A1c 6.5% on 12/07/2024. He states his blood sugars are generally well controlled. Subjective: The patient underwent unremarkable EGD yesterday evening. He has had no further bleeding. He denies chest pain, shortness for breath or palpitations. Exam Vital Signs (past 8 hours): - 02/03/25 03:30 02/03/25 03:31 02/03/25 04:00 Temperature 97.7 F Pulse Rate 59 L 61 61 Respiratory Rate 14 22 16 Blood Pressure 144/59 H Pulse Oximetry 98 Oxygen Delivery Method Oxygen Flow Rate 0 0 0 02/03/25 04:00 02/03/25 04:30 02/03/25 05:00 Temperature Pulse Rate 65 57 L Respiratory Rate 24 24 Blood Pressure 138/65 Pulse Oximetry Oxygen Delivery Method Oxygen Flow Rate 0 0 02/03/25 05:00 02/03/25 05:30 02/03/25 06:00 Temperature Pulse Rate 59 L 58 L Respiratory Rate 17 15 Blood Pressure 135/61 Pulse Oximetry Oxygen Delivery Method Oxygen Flow Rate 0 02/03/25 06:00 02/03/25 06:30 02/03/25 07:00 Temperature Pulse Rate 58 L Respiratory Rate 17 Blood Pressure 153/69 H Pulse Oximetry Oxygen Delivery Method Room Air Oxygen Flow Rate 02/03/25 07:00 02/03/25 07:00 02/03/25 08:00 Temperature 97.3 F L Pulse Rate 62 Respiratory Rate 29 H Blood Pressure 156/74 H Pulse Oximetry Oxygen Delivery Method Oxygen Flow Rate 02/03/25 09:14 Temperature Pulse Rate 61 Respiratory Rate Blood Pressure 126/82 Pulse Oximetry Oxygen Delivery Method Oxygen Flow Rate Oxygen Delivery Method Room Air Oxygen Flow Rate 0 Narrative Exam Narrative: GENERAL: This is a well-nourished, well-developed pale patient, in no apparent distress. EYES: Pupils equal round and reactive. Extraocular motions intact. No scleral icterus. No injection or drainage. ENT: Mucous membranes pink and moist. NECK: Trachea midline. No JVD, bruits or lymphadenopathy. Supple, nontender, no meningeal signs. CARDIOVASCULAR: Regular rate and rhythm without murmurs, gallops, or rubs. RESPIRATORY: Clear to auscultation. GASTROINTESTINAL: Abdomen soft, non-tender, nondistended. EXTREMITIES: No clubbing, cyanosis, or edema. NEUROLOGIC: Alert, oriented, speech fluent, full upper and lower motor strength, no focal deficits evident. DERMATOLOGIC: No rashes or skin lesions. Objective ECG Impression: Normal sinus rhythm at 70 beats per minute, no acute ischemic changes. Imaging Abdomen pelvis CT with contrast:: Radiologist's impression: 1. Through the lower chest, abdomen and pelvis no acute disease is found. [id number] colonic obstipation is present. 2. 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 Maximal aortic caliber in this area is 2.7 cm, ectatic but not aneurysmal. Only the lowest margin of this abnormality was seen on the prior CT scan, a pelvic CT study. 3. As discussed above there is quite pronounced circumferential atherosclerotic calcific plaquing in this patient through the aorta and its main tributaries. No occlusion is identified, however. 37 Labs 02/03/25 04:29 02/03/25 04:29 Labs: Laboratory Results - last 24 hr 02/02/25 02/02/25 02/02/25 11:51 16:00 20:16 WBC 11.0 RBC 2.21 L Hgb 6.6 L* 8.3 L Hct 19.9 L* 24.1 L MCV 89.7 MCH 29.9 MCHC 33.3 RDW 15.8 H Plt Count 133 L Neut % (Auto) 75.9 H Lymph % (Auto) 10.3 L [place] % (Auto) 11.9 Eos % (Auto) 1.5 L Baso % (Auto) 0.4 Neut # (Auto) 8400 H Lymph # (Auto) 1100 [place] # (Auto) 1300 H Eos # (Auto) 200 Baso # (Auto) 0 PT 13.9 H INR 1.2 APTT 46 H Sodium 135 L Potassium 4.7 Chloride 108 H Carbon Dioxide 21 L BUN 81 H Creatinine 1.34 H Estimated GFR 53 L BUN/Creatinine Ratio 60.4 H Glucose 126 H Calcium 8.7 Total Bilirubin 0.3 AST 19 ALT 15 Alkaline Phosphatase 65 Total Protein 5.6 L Albumin 3.1 L Globulin 2.5 Albumin/Globulin Ratio 1.2 Nasal Screen MRSA (PCR) Not detected Blood Type B Negative Antibody Screen Negative Crossmatch See Detail 02/03/25 04:29 WBC 8.0 RBC 2.67 L Hgb 8.1 L Hct 23.3 L MCV 87.4 MCH 30.3 MCHC 34.6 RDW 15.6 H Plt Count 111 L Neut % (Auto) 69.9 Lymph % (Auto) 13.9 L [place] % (Auto) 13.4 Eos % (Auto) 2.3 Baso % (Auto) 0.5 Neut # (Auto) 5600 Lymph # (Auto) 1100 [place] # (Auto) 1100 H Eos # (Auto) 200 Baso # (Auto) 0 PT INR APTT Sodium 138 Potassium 4.0 Chloride 111 H Carbon Dioxide 20 L BUN 70 H Creatinine 1.27 H Estimated GFR 56 L BUN/Creatinine Ratio 55.1 H Glucose 146 H Calcium 8.5 Total Bilirubin AST ALT Alkaline Phosphatase Total Protein Albumin Globulin Albumin/Globulin Ratio Nasal Screen MRSA (PCR) Blood Type Antibody Screen Crossmatch [facility] Medical History Acetabular fracture Acetabular fracture Anticoagulated on warfarin Aortic aneurysm Asymmetrical sensorineural hearing loss Atopic dermatitis Chalazion left lower eyelid Chronic anticoagulation Chronic right hip pain Colon cancer screening Excessive cerumen in ear canal Foreign body in auditory canal Hypertension Imbalance Lumbar pain Meningioma Personal history of transient ischemic attack (TIA), and cerebral infarction without residual deficits Plantar fasciitis Risk for falls Seborrhea Skin cancer screening Sleep apnea Surgical History History of knee replacement Knee joint replacement status Family History Father Stroke Other Anemia Frequent falls Social History household members: spouse Smoking Status: Former smoker alcohol intake: current substance use type: does not use 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 MENJIVAR 08/2023 Assessment & Plan Assessment & Plan narrative: 1. Severe recurrent anemia, likely due to acute recurrent gastrointestinal bleeding, status post EGD 02/02/2025 without source, and stable following 2 units packed red blood cell transfusion. Negative workup with EGD in September 2024 and reassuring colonoscopy in September 2022. Consider occult vascular malformation, small bowel AVMs noting severe aortoiliac atherosclerosis. Doubt aortoenteric fistula or lower source. Surgical input in collaboration appreciated. Transfuse 2 units of packed red blood cells and monitor. Start iron sulfate 325 mg daily. 2. Acute recurrent gastrointestinal bleeding. If recurrent consider repeat colonoscopy, and/or further tagged red blood cell imaging and/or capsule endoscopy. This can be deferred to outpatient evaluation if he remained stable during hospitalization. 3. Acute kidney injury, likely due to volume depletion, superimposed on CKD 3A, improved. Stop IV fluids. 4. Paroxysmal atrial fibrillation. Currently in sinus rhythm. Monitor on telemetry. He notes that extensive evaluations have failed to find recurrent atrial fibrillation beyond a single episode many years ago. 5. Chronic anticoagulation. Held for the past 3 days. Recommend remaining off anticoagulation at this point, noting that he is not been found to have recurrence atrial fibrillation on extensive evaluations, and consider implantable loop recorder to monitor for recurrence, outpatient ZIO patch testing, and/or outpatient Watchman device. 6. Cerebrovascular disease. Remain off aspirin, stopped at least 6 weeks ago when he restarted Pradaxa. Note September hospitalization with a lacunar infarct due to atherosclerotic vascular disease treated with high-dose statin therapy. 7. Diabetes mellitus, type 2. Adequate control. Monitor with sliding scale coverage. 8. Hypertension. Continue carvedilol and hydralazine. Hold losartan and aliskiren and likely restarted at discharge. 8. Hyperlipidemia. Continue high-dose statin therapy. 9. Chronic kidney disease, stage IIIA. Monitor. 10. BPH. Continue terazosin. 11. Constipation. Milk of magnesia today. Start MiraLax to offset chronic constipation and addition of daily iron therapy. 12. DVT prophylaxis: Sequential compression devices. 13. Code status: Full code. This was reviewed with the patient on admission. He has advance directives completed otherwise. His surrogate decision maker is his Aminta. Care was reviewed with his by phone on admission. Plan: -serial hematocrits -stop IV hydration -iron sulfate 325 mg daily -surgical consultation appreciated. No further intervention unless further bleeding. -remain off aspirin and Pradaxa -hold losartan and aliskiren at this point -continue routine medications otherwise including statin -SCDs -full code The patient is admitted inpatient status as she will require at least 2 midnights of inpatient level care. ANN-MARIE: 02/04/2025 if stable. Time-Based Coding :: [TOTAL MINUTES] spent with patient and on the chart (including review of chart, obtaining history, exam, reviewing outside data, placing orders, documenting exam and treatment plan, and counseling patient) on [DATE]. PROFEE Turnstile Attendant Document charge(s): No Charge Codes Subsequent inpatient/observation care: [id number]
--- NOTE | 2025-02-03 11:57 | PM.PN.IH.1 ---
Subjective Subjective Date Patient Seen: 02/03/25 Time Patient Seen: 11:57 Interval history: Patient is wake and alert, extended discussion regarding his bowel habits and muscle cramps. He discussed having episodes of lightheadedness, fainting and then having more frequent bowel movements. I discussed with him that sounds like a vasovagal response. He states he takes a variety of medications that he gets from his sister has unlabored white powders that alter his bowel movements in bowel frequency. I asked him if he had seen the labels of the ingredients and he said no. He has not had any further bowel movements on this hospitalization. He has been hemodynamically stable and his hemoglobin has responded appropriately to transfusion. EGD performed by me yesterday was unremarkable for any signs of recent bleeding, no signs of old ulceration, no varices. Exam Vital Signs (past 8 hours): - 02/03/25 04:00 02/03/25 04:00 02/03/25 04:30 Temperature Pulse Rate 61 65 Respiratory Rate 16 24 Blood Pressure 138/65 Oxygen Delivery Method Oxygen Flow Rate 0 0 02/03/25 05:00 02/03/25 05:00 02/03/25 05:30 Temperature Pulse Rate 57 L 59 L Respiratory Rate 24 17 Blood Pressure 135/61 Oxygen Delivery Method Oxygen Flow Rate 0 0 02/03/25 06:00 02/03/25 06:00 02/03/25 06:30 Temperature Pulse Rate 58 L 58 L Respiratory Rate 15 17 Blood Pressure 153/69 H Oxygen Delivery Method Oxygen Flow Rate 02/03/25 07:00 02/03/25 07:00 02/03/25 07:00 Temperature Pulse Rate 62 Respiratory Rate 29 H Blood Pressure 156/74 H Oxygen Delivery Method Room Air Oxygen Flow Rate 02/03/25 08:00 02/03/25 09:14 Temperature 97.3 F L Pulse Rate 61 Respiratory Rate Blood Pressure 126/82 Oxygen Delivery Method Oxygen Flow Rate Oxygen Delivery Method Room Air Oxygen Flow Rate 0 Narrative Exam Narrative: Gen: NAD, sitting comfortably in bed, appears well HEENT: Sclera are anicteric, head is normocephalic and atraumatic, trachea is midline. CV: RRR, no JVD Resp: clear to auscultation bilaterally, equal chest wall movement bilaterally Abd: soft, nontender, normoactive bowel sounds Ext: no edema, full range of motion Neuro: Cranial nerves II-XII grossly intact, no focal deficits Skin: No erythema or ecchymosis Objective Labs 02/03/25 04:29 02/03/25 04:29 Labs: Laboratory Results - last 24 hr 02/02/25 02/02/25 02/02/25 11:51 16:00 20:16 WBC 11.0 RBC 2.21 L Hgb 6.6 L* 8.3 L Hct 19.9 L* 24.1 L MCV 89.7 MCH 29.9 MCHC 33.3 RDW 15.8 H Plt Count 133 L Neut % (Auto) 75.9 H Lymph % (Auto) 10.3 L [place] % (Auto) 11.9 Eos % (Auto) 1.5 L Baso % (Auto) 0.4 Neut # (Auto) 8400 H Lymph # (Auto) 1100 [place] # (Auto) 1300 H Eos # (Auto) 200 Baso # (Auto) 0 PT 13.9 H INR 1.2 APTT 46 H Sodium 135 L Potassium 4.7 Chloride 108 H Carbon Dioxide 21 L BUN 81 H Creatinine 1.34 H Estimated GFR 53 L BUN/Creatinine Ratio 60.4 H Glucose 126 H Calcium 8.7 Total Bilirubin 0.3 AST 19 ALT 15 Alkaline Phosphatase 65 Total Protein 5.6 L Albumin 3.1 L Globulin 2.5 Albumin/Globulin Ratio 1.2 Nasal Screen MRSA (PCR) Not detected Blood Type B Negative Antibody Screen Negative Crossmatch See Detail 02/03/25 04:29 WBC 8.0 RBC 2.67 L Hgb 8.1 L Hct 23.3 L MCV 87.4 MCH 30.3 MCHC 34.6 RDW 15.6 H Plt Count 111 L Neut % (Auto) 69.9 Lymph % (Auto) 13.9 L [place] % (Auto) 13.4 Eos % (Auto) 2.3 Baso % (Auto) 0.5 Neut # (Auto) 5600 Lymph # (Auto) 1100 [place] # (Auto) 1100 H Eos # (Auto) 200 Baso # (Auto) 0 PT INR APTT Sodium 138 Potassium 4.0 Chloride 111 H Carbon Dioxide 20 L BUN 70 H Creatinine 1.27 H Estimated GFR 56 L BUN/Creatinine Ratio 55.1 H Glucose 146 H Calcium 8.5 Total Bilirubin AST ALT Alkaline Phosphatase Total Protein Albumin Globulin Albumin/Globulin Ratio Nasal Screen MRSA (PCR) Blood Type Antibody Screen Crossmatch [facility] Medical History Acetabular fracture Acetabular fracture Anticoagulated on warfarin Aortic aneurysm Asymmetrical sensorineural hearing loss Atopic dermatitis Chalazion left lower eyelid Chronic anticoagulation Chronic right hip pain Colon cancer screening Excessive cerumen in ear canal Foreign body in auditory canal Hypertension Imbalance Lumbar pain Meningioma Personal history of transient ischemic attack (TIA), and cerebral infarction without residual deficits Plantar fasciitis Risk for falls Seborrhea Skin cancer screening Sleep apnea Surgical History History of knee replacement Knee joint replacement status Family History Father Stroke Other Anemia Frequent falls Social History household members: spouse Smoking Status: Former smoker alcohol intake: current substance use type: does not use 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 MENJIVAR 08/2023 Assessment & Plan Assessment and plan (1) Symptomatic anemia: Status: Acute Assessment & Plan narrative: Patient does not have any active signs of bleeding. He had an inpatient investigation a few months prior that was also unremarkable. I recommend he follow up with Gastroenterology as an outpatient for a capsule endoscopy. A previous EGD and colonoscopy were negative. Are EGD on this hospitalization is negative. He is not having any bowel movements for the last few days, he states he takes magnesium regularly for both muscle cramps and for bowel movements. He has milk of magnesia ordered, I added magnesium chloride. He also take psyllium fiber at home, so I ordered psyllium fiber for him as well. I recommend that he stop taking medications delivered to him by his sister without labels, start keeping a food journal to document what he eats and the medications he takes and how they correlate with his bowel movements. Time-Based Coding :: [TOTAL MINUTES] spent with patient and on the chart (including review of chart, obtaining history, exam, reviewing outside data, placing orders, documenting exam and treatment plan, and counseling patient) on [DATE]. PROFEE Hand Deicer Element Winder Document charge(s): Yes Charge Codes Subsequent inpatient/observation care: [id number]
[2025-02-03 12:20] LABS: Magnesium 2.3 mg/dL (1.6-2.3)
[2025-02-03] MEDS: MAGNESIUM CHLORIDE 64 MG TABLET PO (12:57)
[2025-02-03 17:26] LABS: Hematocrit 26.4 % (41-53)
--- NOTE | 2025-02-03 18:42 | PC.NURSE ---
1830 - Patient overhead from nursing station talking to on phone. Expressed concerned medical staff were not real and was that the hospital was not a real facility. Patient wanted to call the police to check on him and make sure he was in a hospital. Patient's called nursing station after their call concluded, expressing concern, stating she did not call any police. Checked on patient, asked if they needed anything, and they politely declined. Asked if the patient had any questions or wanted to talk about anything, and they politely declined. Called back to update. then called patient back on patient's cell phone, and the patient repeated concerns and became agitated with as the conversation progressed. Patient was then heard speaking with jig operator echoing concerns in a calm, controlled manner. Patient hung up, and is now resting comfortably in bed without any signs of agitation. health and wellness coordinator and Dr. Lira made aware.
[2025-02-03] MEDS: ATORVASTATIN 20 MG TABLET 80 MG PO (19:53)
[2025-02-03] MEDS: QUETIAPINE 25 MG TABLET PO (19:54)
[2025-02-04] VITALS (25 sets, daily range): BP systolic 115–216; BP diastolic 53–95; PULSE 55–85; RESP 12–39; TEMP 36.4; O2SAT 93–98
[2025-02-04] MEDS: HALOPERIDOL 5 MG/ML VIAL 2 MG IV (00:39)
[2025-02-04 05:29] LABS: Add Manual Diff / Slide Review NO; Basophils Absolute Auto 0 /uL (0-100); Basophils Percent Auto 0.5 % (0-2); Eosinophils Absolute Auto 200 /uL (0-450); Eosinophils Percent Auto 2.3 % (2-4); Hemoglobin 8.3 g/dL (13.5-17.5); Lymphocytes Absolute Auto 1300 /uL (1100-4500); Lymphocytes Percent Auto 14.8 % (25-40); Mean Corpuscular HGB Conc 34.7 % (30-36); Mean Corpuscular Hemoglobin 30.5 PG (26-34); Mean Corpuscular Volume 87.8 fL (80-100); Monocytes Absolute Auto 1200 /uL (0-900); Monocytes Percent Auto 14.1 % (3-14); Neutrophils Absolute Auto 5900 /uL (1500-7000); Neutrophils Percent Auto 68.3 % (50-75); Platelet Count 125 X10^3/uL (150-400); Red Blood Cell Count 2.73 X10^6/uL (4.5-5.9); Red Cell Distribution Width 15.8 % (11.6-14.8); White Blood Cell Count 8.7 X10^3/uL (4.5-11.0)
[2025-02-04 05:42] LABS: Blood Urea Nitrogen 48 mg/dL (9-20); Calcium 8.7 mg/dL (8.4-10.2); Carbon Dioxide 21 mmol/L (22-32); Chloride 112 mmol/L (98-107); Estimated Glomerular Filt Rate 51 mL/min (>60); Glucose 137 mg/dL (80-110); HEMOLYSIS < 15 (0-50); Potassium 3.9 mmol/L (3.4-5.1); Sodium 140 mmol/L (137-145)
[2025-02-04] MEDS: TERAZOSIN 5 MG CAPSULE PO (09:00)
[2025-02-04] MEDS: SODIUM CHLORIDE 0.9% FLUSH 10 ML IV (09:00)
[2025-02-04] MEDS: PANTOPRAZOLE 40 MG VIAL IV (09:00)
[2025-02-04] MEDS: FERROUS SULFATE 325 MG TABLET PO (09:00)
[2025-02-04] MEDS: polyethylene glycoL 3350 17 GM POWD.PACK PO (09:00)
[2025-02-04] MEDS: carvediloL 3.125 MG TABLET PO (09:00)
[2025-02-04] MEDS: HYDRALAZINE 25 MG TABLET PO (09:00)
--- NOTE | 2025-02-04 10:30 | P.DS_ITS ---
History of Present Illness History of Present Illness Date Patient Seen: 02/04/25 Time Patient Seen: 08:00 Chief complaint: GI Bleed Narrative: 84-year-old man under the primary care of Dr. Ashli Escobar reports that 5 or 6 days ago he experienced a large explosive diarrheal grossly bloody bowel movement, and has had little stool output since then. His noticed that there was blood in the toilet 3 days ago and reports she stopped his Pradaxa, which he takes for paroxysmal atrial fibrillation, as well as aspirin. He had history of gastrointestinal bleeding incidentally noted on hospitalization at [facility] in September for a fall with head injury. His hemoglobin was 5.7 at that time and he was transfused 3 units of packed red blood cells, undergoing EGD on 10/18/2021 for showing a medium-sized hiatal hernia, otherwise normal stomach and duodenal, and a possible esophageal bleeding source. A colonoscopy in September 2022 reported only nonbleeding diverticulosis. A brain MRI at that time showed an acute left lacunar infarct and Neurology was consulted and recommended aspirin and high-intensity statin therapy, and that his stroke was unlikely to have been cardioembolic. Following discharge he was later restarted on Pradaxa and had done well until this week without apparent bleeding. They had been in discussion with Cardiology about a possible Watchman device. He takes aspirin 81 mg daily, but has stopped this and Pradaxa 3 days ago, and denies NSAID use or other anti-inflammatories. He has not had a bowel movement in the past 3-6 days. He denies abdominal pain, nausea, vomiting or other distressing symptoms at this time.He also has diabetes with his last hemoglobin A1c 6.5% on 12/07/2024. He states his blood sugars are generally well controlled. Discharge Providers Provider Date of admission: 02/02/25 14:33 Discharge Date: 02/04/25 Primary care physician: Ashli Escobar MD Consults: 02/02/25 13:49 Consult to General Surgery Stat Comment: Consulting Provider: Deric Dasilva Reason for consultation: gi bleed Has provider been notified: Yes 02/02/25 14:40 Consult to General Surgery Routine Comment: Consulting Provider: Deric Dasilva Reason for consultation: gi bleed Has provider been notified: Yes Discharge provider: Pepe Lira MD Summary Hospital Course Discharge Diagnosis: 1. Severe recurrent anemia, likely due to acute recurrent gastrointestinal bleeding, status post EGD 02/02/2025 without source, and stable following 2 units packed red blood cell transfusion. 2. Acute recurrent gastrointestinal bleeding. 3. Acute kidney injury, likely due to volume depletion, superimposed on CKD 3A. 4. History of paroxysmal atrial fibrillation, remaining in sinus rhythm. 5. Chronic anticoagulation. 6. Cerebrovascular disease with history of lacunar infarct 09/2024. 7. Diabetes mellitus, type 2. 8. Hypertension. 8. Hyperlipidemia. 9. Chronic kidney disease, stage IIIA. 10. BPH. 11. Constipation. Hospital Course: The patient was admitted and transfused 2 units of packed red blood cells. EGD was obtained and showed no bleeding source or abnormalities. Noted previous negative workup with EGD in September 2024 and reassuring colonoscopy in September 2022. Consider occult vascular malformation, small bowel AVMs noting severe aortoiliac atherosclerosis. Doubt aortoenteric fistula or lower source. He was started on iron sulfate 325 mg daily. If recurrent consider repeat colonoscopy, and/or further tagged red blood cell imaging and/or capsule endoscopy deferred to outpatient evaluation as he remained stable during his hospitalization. Recommend remaining off anticoagulation at this point, noting that he is not been found to have recurrence atrial fibrillation on extensive prior evaluations, and consider implantable loop recorder to monitor for recurrence, outpatient ZIO patch testing, and/or outpatient Watchman device. Remain off aspirin, stopped at least 6 weeks ago when he restarted Pradaxa. Note September hospitalization with a lacunar infarct due to atherosclerotic vascular disease treated with high-dose statin therapy. He appeared mildly confused at times in the hospital, with anxiety on the evening prior to discharge, treated with quetiapine 25 mg at bedtime. He was feeling well on the morning of discharge and interested in returning home with his . Status at Discharge Cognitive/behavioral status at discharge: oriented Functional status at discharge: independent ambulation Overall status at discharge: patient is back to baseline Time Spent with Patient Time spent: Greater than 30 minutes Exam Vital Signs (past 8 hours): - 02/04/25 01:59 02/04/25 03:00 02/04/25 03:03 Temperature Pulse Rate 58 L 62 Respiratory Rate 14 14 Blood Pressure 134/62 Pulse Oximetry Oxygen Delivery Method Oxygen Flow Rate 02/04/25 03:30 02/04/25 04:00 02/04/25 04:01 Temperature Pulse Rate 57 L 55 L Respiratory Rate 13 14 Blood Pressure 115/53 L Pulse Oximetry Oxygen Delivery Method Oxygen Flow Rate 02/04/25 04:01 02/04/25 04:30 02/04/25 05:00 Temperature 97.6 F Pulse Rate 55 L 63 Respiratory Rate 12 14 24 Blood Pressure 137/83 Pulse Oximetry Oxygen Delivery Method Oxygen Flow Rate 0 02/04/25 05:00 02/04/25 05:30 02/04/25 05:50 Temperature Pulse Rate 66 61 Respiratory Rate 17 19 Blood Pressure Pulse Oximetry 97 97 Oxygen Delivery Method Room Air Oxygen Flow Rate 02/04/25 06:00 02/04/25 06:00 02/04/25 06:30 Temperature Pulse Rate 61 66 Respiratory Rate 15 16 Blood Pressure 146/63 H Pulse Oximetry 95 93 Oxygen Delivery Method Oxygen Flow Rate 02/04/25 07:00 02/04/25 07:00 02/04/25 07:01 Temperature Pulse Rate 85 Respiratory Rate 16 Blood Pressure 216/95 H Pulse Oximetry 97 Oxygen Delivery Method Room Air Oxygen Flow Rate 02/04/25 07:01 02/04/25 07:02 02/04/25 07:02 Temperature Pulse Rate 75 74 Respiratory Rate 19 15 Blood Pressure 179/79 H Pulse Oximetry 96 96 Oxygen Delivery Method Oxygen Flow Rate 02/04/25 07:03 02/04/25 07:03 02/04/25 07:30 Temperature Pulse Rate 75 58 L Respiratory Rate 26 H 25 H Blood Pressure 177/76 H Pulse Oximetry 96 95 Oxygen Delivery Method Oxygen Flow Rate 02/04/25 08:00 02/04/25 08:01 02/04/25 08:01 Temperature Pulse Rate 68 67 Respiratory Rate 22 37 H Blood Pressure 159/72 H Pulse Oximetry 96 96 Oxygen Delivery Method Oxygen Flow Rate Oxygen Delivery Method Room Air Oxygen Flow Rate 0 Narrative Exam Narrative: GENERAL: This is a well-nourished, well-developed pale patient, in no apparent distress. EYES: Pupils equal round and reactive. Extraocular motions intact. No scleral icterus. No injection or drainage. ENT: Mucous membranes pink and moist. NECK: Trachea midline. No JVD, bruits or lymphadenopathy. Supple, nontender, no meningeal signs. CARDIOVASCULAR: Regular rate and rhythm without murmurs, gallops, or rubs. RESPIRATORY: Clear to auscultation. GASTROINTESTINAL: Abdomen soft, non-tender, nondistended. EXTREMITIES: No clubbing, cyanosis, or edema. NEUROLOGIC: Alert, oriented, speech fluent, full upper and lower motor strength, no focal deficits evident. DERMATOLOGIC: No rashes or skin lesions. Objective Labs 02/04/25 05:16 02/04/25 05:16 Labs: Laboratory Results - last 24 hr 02/03/25 02/03/25 02/04/25 04:29 17:15 05:16 WBC 8.7 RBC 2.73 L Hgb 9.0 L 8.3 L Hct 26.4 L 24.0 L MCV 87.8 MCH 30.5 MCHC 34.7 RDW 15.8 H Plt Count 125 L Neut % (Auto) 68.3 Lymph % (Auto) 14.8 L Kendall % (Auto) 14.1 H Eos % (Auto) 2.3 Baso % (Auto) 0.5 Neut # (Auto) 5900 Lymph # (Auto) 1300 Kendall # (Auto) 1200 H Eos # (Auto) 200 Baso # (Auto) 0 Sodium 140 Potassium 3.9 Chloride 112 H Carbon Dioxide 21 L BUN 48 H Creatinine 1.37 H Estimated GFR 51 L BUN/Creatinine Ratio 35.0 H Glucose 137 H Calcium 8.7 Magnesium 2.3 PFSH Medical History Acetabular fracture Acetabular fracture Anticoagulated on warfarin Aortic aneurysm Asymmetrical sensorineural hearing loss Atopic dermatitis Chalazion left lower eyelid Chronic anticoagulation Chronic right hip pain Colon cancer screening Excessive cerumen in ear canal Foreign body in auditory canal Hypertension Imbalance Lumbar pain Meningioma Personal history of transient ischemic attack (TIA), and cerebral infarction without residual deficits Plantar fasciitis Risk for falls Seborrhea Skin cancer screening Sleep apnea Surgical History History of knee replacement Knee joint replacement status Family History Father Stroke Other Anemia Frequent falls Social History household members: spouse Smoking Status: Former smoker alcohol intake: current substance use type: does not use 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 MENJIVAR 08/2023 Discharge Plan Discharge Plan Patient Disposition: Home Provider Discharge Comment: Followup with PCP 1 week Discharge orders & Medications Prescriptions: New ferrous sulfate 325 mg (65 mg iron) Tablet 325 mg PO DAILY Qty: 30 0RF Continued (DME) blood-glucose meter [Blood Glucose Monitoring] Kit See Rx Instructions .Route Qty: 1 0RF Rx Instructions: Check sugars TID (DME) True Metrix Glucose Test Strip Strip See Rx Instructions .ROUTE .COMPLEX Qty: 100 1RF Dose Instruction: USE TO CHECK BLOOD SUGAR LEVEL THREE(3) TIMES DAILY Rx Instructions: USE TO CHECK BLOOD SUGAR LEVEL THREE(3) TIMES DAILY terazosin 5 mg capsule 5 mg PO DAILY Qty: 90 1RF dapagliflozin propanediol [Farxiga] 10 mg tablet 10 mg PO QAM hydralazine 25 mg tablet 25 mg PO BID Rx Instructions: 2/day am pm carvedilol 3.125 mg tablet 3.2 mg PO BID Rx Instructions: must administer with a meal/food mecobalamin (vitamin B12) 1,000 mcg tablet,chewable 1,000 mcg PO DAILY Rx Instructions: 1000 mcg 1/day [id number] [Citracal-D3 Maximum Plus] 325 mg-12.5 mcg -2.75 mg tablet 1 tab PO DAILY Rx Instructions: 1/day losartan 50 mg tablet 50 mg PO BID acetaminophen 500 mg tablet 500 mg PO Q6H PRN (Reason: Breakthrough Pain, Mild) aliskiren [Tekturna] 300 mg tablet 300 mg PO DAILY Rx Instructions: 1/day am atorvastatin [Lipitor] 80 mg tablet 80 mg PO DAILY Patient Comments: Changed from simvastatin during hospitalization Discontinued dabigatran etexilate 150 mg capsule 150 mg PO .HOLD Rx Instructions: restarted by cardiology aspirin 81 mg tablet,delayed release (/EC) 81 mg PO DAILY Follow up/Referrals: Ashli Escobar MD [Primary Care Provider] - Visit Report/Discharge Packet Stand Alone Forms: Patient Portal/API, Stroke Signs & Symptoms Discharge Data Primary Care Provider: Ashli Escobar Quality MIPS - Admit I confirm the patient?s Advance Care Plan is present, Code status is documented, Surrogate decision maker is in patient?s record [If Yes, STOP here]: Yes MIPS - Meds 'Current medications' to include all prescriptions, [id number] products, herbals, cannabis/cannabidiol products, and vitamin/mineral/dietary (nutritional) supplements. I have utilized all available resources to obtain, update, or review the patient?s current medications. [If Yes, STOP here]: Yes MIPS - DC The patient has a history of heart transplant or Left Ventricular Assist Device (LVAD). If yes, STOP here.: No The patient has current or prior documentation of left ventricular ejection fraction (LVEF) less than or equal to 40%, or moderate or severely depressed left ventricular systolic function.: No A. The patient was prescribed or already taking an Angiotensin-Converting Enzyme (ALCIDES) Inhibitor, or Angiotensin Receptor Abram (ARB).: Yes B. The patient was prescribed or already taking a beta-abram. [If Yes to Both A & B, STOP here]: No Patient not prescribed/taking ALCIDES or ARB, no reason given.: No Patient not prescribed/taking beta-abram, no reason given.: No PROFEE Charge Codes Discharge inpatient/observation: [id number]
--- NOTE | 2025-02-04 13:36 | CM.DPC ---
DCP Discharge Home Per MD, pt is medically stable to d/c home today and have outpt f/u and his increased confusion overnight has improved. Per RN, spouse arrived bedside this morning as planned and provided transport back to [place] [id number]. SW notified TCM team of pt discharge and request for f/u appointment with his PCP at the [facility] within 7-10 days. MOUNIKA Odom
== END 2025-02-04 11:30 | disposition home or self-care (01) | DRG 378 ==
LOC: ED 14:32 → AC 14:34 → ICU 14:51
PROVIDERS: Surgery; Admitting Provider Internal Medicine; Emergency Provider Emergency Medicine; PCP Family Medicine; Referring Provider Emergency Medicine; Visit Provider Internal Medicine
PROC: 0DJ08ZZ Inspection of Upper Intestinal Tract, Via Natural or Artificial Opening Endoscopic (ICD-10-PCS; principal; 2025-02-02 16:45)
DX: K92.2 Gastrointestinal hemorrhage, unspecified (principal); D62 Acute posthemorrhagic anemia; N17.9 Acute kidney failure, unspecified; N18.31 Chronic kidney disease, stage 3a; E86.9 Volume depletion, unspecified; I48.0 Paroxysmal atrial fibrillation; I67.9 Cerebrovascular disease, unspecified; I12.9 Hypertensive chronic kidney disease with stage 1 through stage 4 chronic kidney disease, or unspecified chronic kidney disease; E78.5 Hyperlipidemia, unspecified; N40.0 Benign prostatic hyperplasia without lower urinary tract symptoms; K59.00 Constipation, unspecified; E11.22 Type 2 diabetes mellitus with diabetic chronic kidney disease; F41.9 Anxiety disorder, unspecified; R41.0 Disorientation, unspecified; Z87.891 Personal history of nicotine dependence; Z86.73 Personal history of transient ischemic attack (TIA), and cerebral infarction without residual deficits; Z79.82 Long term (current) use of aspirin; Z79.01 Long term (current) use of anticoagulants; Z79.84 Long term (current) use of oral hypoglycemic drugs
CPT/HCPCS: 36415; 36430; 74177; 80048; 80053; 82962; 83735; 85014; 85018; 85025; 85610; 85730; 86850; 86900; 86901; 87797; 93005; 96374; 99284; P9016; J1630; J1815; J2470; J2704; Q9967

== ENCOUNTER → 2025-02-13 13:24 | Outpatient (CLI) | payer MEDICARE, BC, SELFPAY ==
[2025-02-02 15:46] VITALS: BMI 25.2
[2025-02-13 19:27] LABS: Hematocrit 28.2 % (41-53); Hemoglobin 9.6 g/dL (13.5-17.5); Mean Corpuscular HGB Conc 33.9 % (30-36); Mean Corpuscular Volume 91.3 fL (80-100); Platelet Count 191 X10^3/uL (150-400); Red Blood Cell Count 3.09 X10^6/uL (4.5-5.9); Red Cell Distribution Width 15.7 % (11.6-14.8); White Blood Cell Count 7.3 X10^3/uL (4.5-11.0)
== END ==
PROVIDERS: PCP Family Medicine; Visit Provider Internal Medicine Cardiovascular Disease
DX: I48.91 Unspecified atrial fibrillation (principal)
CPT/HCPCS: 85027

== ENCOUNTER → 2025-03-07 09:00 | Outpatient (CLI) | payer MEDICARE, BC, SELFPAY ==
[2025-02-02 15:46] VITALS: BMI 25.2
== END ==
PROVIDERS: PCP Family Medicine; Visit Provider Family Medicine
DX: R19.7 Diarrhea, unspecified (principal); R15.9 Full incontinence of feces
CPT/HCPCS: 87045; 87177

== ENCOUNTER → 2025-03-12 12:55 | Outpatient (CLI) | payer MEDICARE, BC, SELFPAY ==
[2025-02-02 15:46] VITALS: BMI 25.2
[2025-03-12 18:35] LABS: Add Manual Diff / Slide Review NO; Basophils Absolute Auto 0 /uL (0-100); Basophils Percent Auto 0.5 % (0-2); Eosinophils Absolute Auto 100 /uL (0-450); Eosinophils Percent Auto 1.7 % (2-4); Hemoglobin 11.5 g/dL (13.5-17.5); Lymphocytes Absolute Auto 1000 /uL (1100-4500); Lymphocytes Percent Auto 14.3 % (25-40); Monocytes Absolute Auto 1100 /uL (0-900); Monocytes Percent Auto 14.7 % (3-14); Neutrophils Absolute Auto 5000 /uL (1500-7000); Neutrophils Percent Auto 68.8 % (50-75); Platelet Count 172 X10^3/uL (150-400); Red Blood Cell Count 3.84 X10^6/uL (4.5-5.9); White Blood Cell Count 7.3 X10^3/uL (4.5-11.0)
[2025-03-12 18:49] LABS: Alanine Aminotransferase 22 IU/L (<50); Albumin 3.6 g/dL (3.5-5.0); Albumin Globulin Ratio 1.2 (1.0-2.8); Alkaline Phosphatase 104 U/L (38-126); Aspartate Aminotransferase 75 IU/L (17-59); BUN Creatinine Ratio 24.8 (6-22); Bilirubin Total 0.6 mg/dL (0.2-1.3); Blood Urea Nitrogen 27 mg/dL (9-20); Carbon Dioxide 30 mmol/L (22-32); Chloride 103 mmol/L (98-107); Estimated Glomerular Filt Rate > 60 mL/min (>60); Glucose 149 mg/dL (80-110); HEMOLYSIS 18 (0-50); Potassium 4.1 mmol/L (3.4-5.1); Sodium 139 mmol/L (137-145); Total Protein 6.6 g/dL (6.3-8.2)
[2025-03-12 19:25] LABS: Ferritin 377 ng/mL (18-464)
== END ==
PROVIDERS: PCP Family Medicine; Visit Provider Family Medicine
DX: D50.9 Iron deficiency anemia, unspecified (principal); N18.30 Chronic kidney disease, stage 3 unspecified; M19.049 Primary osteoarthritis, unspecified hand
CPT/HCPCS: 80053; 82728; 85025

== ENCOUNTER → 2025-06-12 13:32 | Outpatient (CLI) | payer MEDICARE, BC, SELFPAY ==
[2025-02-02 15:46] VITALS: BMI 25.2
[2025-06-12 19:19] LABS: Add Manual Diff / Slide Review NO; Hematocrit 39.3 % (41-53); Hemoglobin 13.3 g/dL (13.5-17.5); Lymphocytes Absolute Auto 1000 /uL (1100-4500); Mean Corpuscular HGB Conc 33.8 % (30-36); Mean Corpuscular Hemoglobin 30.0 PG (26-34); Mean Corpuscular Volume 88.8 fL (80-100); Platelet Count 117 X10^3/uL (150-400)
[2025-06-12 19:26] LABS: HEMOLYSIS < 15 (0-50); Iron 99 ug/dL (49-181)
[2025-06-12 19:31] LABS: Alanine Aminotransferase 21 IU/L (<50); Albumin 3.7 g/dL (3.5-5.0); Albumin Globulin Ratio 1.4 (1.0-2.8); Alkaline Phosphatase 102 U/L (38-126); Blood Urea Nitrogen 30 mg/dL (9-20); Calcium 9.2 mg/dL (8.4-10.2); Carbon Dioxide 25 mmol/L (22-32); Chloride 105 mmol/L (98-107); Estimated Glomerular Filt Rate > 60 mL/min (>60); Globulin 2.7 g/dL (1.7-4.1); Glucose 204 mg/dL (70-99); HEMOLYSIS 20 (0-50); Potassium 4.8 mmol/L (3.4-5.1); Sodium 138 mmol/L (137-145); Total Protein 6.4 g/dL (6.3-8.2)
[2025-06-12 19:37] LABS: Percent Iron Saturation 25 % (20-50); Total Iron Binding Capacity 391 ug/dL (261-462); Transferrin 306 mg/dL (206-381)
[2025-06-12 20:03] LABS: Ferritin 487 ng/mL (18-464)
[2025-06-14 15:09] LABS: Free Kappa Lt Chains, Serum 78.3 mg/L (3.3-19.4); Free Lambda Lt Chains,Serum 42.0 mg/L (5.7-26.3)
== END ==
PROVIDERS: PCP Family Medicine; Visit Provider Family Medicine
DX: D50.9 Iron deficiency anemia, unspecified (principal); D64.9 Anemia, unspecified; I12.9 Hypertensive chronic kidney disease with stage 1 through stage 4 chronic kidney disease, or unspecified chronic kidney disease; E11.22 Type 2 diabetes mellitus with diabetic chronic kidney disease; N18.30 Chronic kidney disease, stage 3 unspecified; R76.8 Other specified abnormal immunological findings in serum
CPT/HCPCS: 80053; 82728; 83540; 83550; 83883; 85025

== ENCOUNTER → 2025-08-08 09:28 | Outpatient (CLI) | payer MEDICARE, BC, SELFPAY ==
[2025-02-02 15:46] VITALS: BMI 25.2
[2025-08-08 20:30] LABS: Cholesterol 87 mg/dL (140-199); HDL Cholesterol 27 mg/dL (40-60); Triglycerides 104 mg/dL (35-150)
[2025-08-08 20:48] LABS: Hemoglobin A1C% w Est Avg Glu 7.3 % (4.0-6.0)
[2025-08-08 21:20] LABS: Thyroid Stimulating Hormone 1.37 uIU/mL (0.47-4.68)
[2025-08-08 21:36] LABS: Microalbumi Creatinin Ratio Ur 986.0 ug/mg CR (<30)
[2025-08-08 21:39] LABS: Vitamin B12 739 pg/mL (239-931)
== END ==
PROVIDERS: PCP Family Medicine; Visit Provider Family Medicine
DX: E11.42 Type 2 diabetes mellitus with diabetic polyneuropathy (principal); I10 Essential (primary) hypertension; E53.8 Deficiency of other specified B group vitamins
CPT/HCPCS: 80061; 82043; 82570; 82607; 83036; 84443

== ENCOUNTER → 2025-10-04 10:43 | Outpatient (CLI) | payer MEDICARE, BC, SELFPAY ==
[2025-02-02 15:46] VITALS: BMI 25.2
[2025-10-04 19:04] LABS: Hematocrit 40.0 % (41-53); Hemoglobin 13.5 g/dL (13.5-17.5)
[2025-10-04 19:19] LABS: Blood Urea Nitrogen 29 mg/dL (9-20); Calcium 9.2 mg/dL (8.4-10.2); Carbon Dioxide 30 mmol/L (22-32); Chloride 104 mmol/L (98-107); Estimated Glomerular Filt Rate > 60 mL/min (>60); Glucose 186 mg/dL (70-99); HEMOLYSIS < 15 (0-50); Potassium 4.6 mmol/L (3.4-5.1); Sodium 139 mmol/L (137-145)
[2025-10-04 19:59] LABS: Protein (Total) Urine Random 232 mg/dL (0-12); Protein Creatinine Ratio Urine 3.32 GRAM/24H
== END ==
PROVIDERS: PCP Family Medicine; Visit Provider Student in an Organized Health Care Education/Training Program
DX: R80.9 Proteinuria, unspecified (principal); N25.81 Secondary hyperparathyroidism of renal origin; D70.9 Neutropenia, unspecified; D63.1 Anemia in chronic kidney disease; N05.9 Unspecified nephritic syndrome with unspecified morphologic changes
CPT/HCPCS: 80048; 82570; 83970; 84156; 85014; 85018

== ENCOUNTER → 2025-11-12 11:25 | Outpatient (CLI) | payer MEDICARE, BC, SELFPAY ==
[2025-02-02 15:46] VITALS: BMI 25.2
[2025-11-12 19:06] LABS: Calcium 9.6 mg/dL (8.4-10.2); Carbon Dioxide 28 mmol/L (22-32); Chloride 106 mmol/L (98-107); Glucose 148 mg/dL (70-99); HEMOLYSIS < 15 (0-50); Potassium 4.7 mmol/L (3.4-5.1); Sodium 139 mmol/L (137-145)
[2025-11-12 20:31] LABS: Protein (Total) Urine Random 149 mg/dL (0-12); Protein Creatinine Ratio Urine 2.83 GRAM/24H
[2025-11-12 20:51] LABS: Blood Urea Nitrogen 28 mg/dL (9-20); Estimated Glomerular Filt Rate 55 mL/min (>60)
== END ==
PROVIDERS: PCP Family Medicine; Referring Provider Student in an Organized Health Care Education/Training Program; Visit Provider Student in an Organized Health Care Education/Training Program
DX: N05.9 Unspecified nephritic syndrome with unspecified morphologic changes (principal); R80.9 Proteinuria, unspecified
CPT/HCPCS: 80048; 82570; 84156